=== PATIENT | female | born 1955 | race Caucasian/White ===

== ENCOUNTER 2017-03-09 18:24 | Observation (INO) | payer BC ==
--- NOTE | 2017-03-09 18:29 | PDOC ---
Attending Attestation - Resident Resident Name: PollojasenErik - ED Attending Attestation I have performed the following: I have examined & evaluated the patient, The case was reviewed & discussed with the resident, I agree w/resident's findings & plan, Exceptions are as noted - HPI HPI: 62 yo F recently post-op for arthroscopic surgery, was off her Eliquis for the past 5 days (she restarted it today on her own when she felt the palpitations). She has history of paroxysmal afib, was previously admitted requiring cardizem and subsequently amiodarone, after which it broke. She has been on metoprolol preventatively, which she took today. Denies cp. +SOB. - Physicial Exam PE: GENERAL: Awake, alert, and fully oriented, in no acute distress HEAD: No signs of trauma EYES: PERRLA, EOMI, sclera anicteric, conjunctiva clear ENT: Auricles normal inspection, hearing grossly normal, nares patent, oropharynx clear without exudates. Moist mucosa NECK: Normal ROM, supple, no lymphadenopathy, JVD, or masses LUNGS: +Mild tachypnea. Breath sounds equal, clear to auscultation bilaterally. No wheezes, and no crackles HEART: Irregularly irregular, normal S1 and S2, no murmurs, rubs or gallops ABDOMEN: Soft, nontender, normoactive bowel sounds. No guarding, no rebound. No masses EXTREMITIES: L knee with surgical dressing dry and intact. No calf tenderness, no asymmetric swelling. Remainder of extremities with normal range of motion, no edema. No clubbing or cyanosis. No cords, erythema. NEUROLOGICAL: Cranial nerves II through XII grossly intact. Normal speech. Motor and sensation intact. SKIN: Warm, Dry, normal turgor, no rashes or lesions noted. - Medical Decision Making DDx includes PE, with high clinical suspicion. Will obtain labs, then plan for DVT study, and likely a CTA.
[2017-03-09 18:37] VITALS: BMI 36.0
[2017-03-09] MEDS ORDERED: dilTIAZem HCL 50 MG/10 ML - 10 ML VIAL IVPUSH ONE (18:45)
--- NOTE | 2017-03-09 18:46 | PDOC ---
History of Present Illness - General Chief Complaint: Chest Pain Stated Complaint: chest pain Time Seen by Provider: 03/09/17 18:28 History Source: Patient Exam Limitations: No Limitations - History of Present Illness Initial Comments: 03/09/17 18:46 The patient is a 62F with a PMH of a-fib on eliquis, HTN who presents to the ED with complaints of chest ache. The patient states that this ache started this afternoon and has been constant since. It is located across her chest. It is not associated with CP, shortness of breath, cough, and vomiting. The patient states that she does feel somewhat nauseous. The patient had an arthroscopy 2 days ago. She has been off her eliquis for 6-7 days now. She has no hx of blood clots and has a distant hx of cancer but nothing within the past 6 months. Past History - Past Medical History Allergies/Adverse Reactions: Allergies Allergy/AdvReac Type Severity Reaction Status Date / Time atorvastatin AdvReac Severe Myalgias Verified 03/09/17 18:25 simvastatin AdvReac Severe Myalgias Verified 03/09/17 18:25 Home Medications: Ambulatory Orders Cholecalciferol (Vitamin D3) [Vitamin D3] 2,000 unit PO DAILY capsule 01/13/13 Multivitamin [Daily Vitamin] 1 each PO DAILY tablet 01/13/13 Calcium Carbonate [Calcium] 500 mg PO DAILY tablet 02/12/15 Apixaban [Eliquis] 5 mg PO BID tablet 01/12/17 Metoprolol Succinate [Toprol XL -] 25 mg PO DAILY 03/09/17 Apixaban [Eliquis -] 5 mg PO BID #60 tablet 03/10/17 Cardiac Disorders: Yes (afib) HTN: Yes Hypercholesterolemia: Yes Other medical history: uterine and bladder cancer - Suicide/Smoking/Psychosocial Hx Smoking History: Never smoked Hx Alcohol Use: No Drug/Substance Use Hx: No Substance Use Type: None Review of Systems - Review of Systems Able to Perform ROS?: Yes Is the patient limited Greenlandic proficient: No Constitutional: No: Chills, Fever HEENTM: No: Eye Pain, Ear Pain, Nose Pain, Throat Pain Respiratory: No: Cough, Shortness of Breath Cardiac (ROS): Yes: Irregular Heart Rate, Palpitations. No: Chest Pain, Lightheadedness ABD/GI: Yes: Nausea. No: Vomiting : No: Burning, Dysuria, Discharge Musculoskeletal: Yes: Back Pain. No: Muscle Pain Neurological: No: Headache, Numbness, Tingling, Weakness Hematologic/Lymphatic: No: Blood Clots *Physical Exam - Vital Signs Last Vital Signs Temp Pulse Resp BP Pulse Ox 98 F 141 H 18 121/77 98 03/09/17 18:29 03/09/17 18:29 03/09/17 18:29 03/09/17 18:29 03/09/17 18:29 - Physical Exam General Appearance: Yes: Nourished, Appropriately Dressed, Mild Distress, Obese. No: Apparent Distress HEENT: positive: Normal Voice, Hearing Grossly Normal Respiratory/Chest: positive: Lungs Clear, Normal Breath Sounds. negative: Chest Tender, Respiratory Distress, Accessory Muscle Use, Labored Respiration Cardiovascular: positive: Regular Rhythm, Regular Rate, S1, S2. negative: Diastolic Murmur, Systolic Murmur Gastrointestinal/Abdominal: positive: Flat, Soft. negative: Tender, Protuberent , Distended, Guarding, Rebound, Tenderness Musculoskeletal: negative: CVA Tenderness, CVA Tenderness (R), CVA Tenderness (L ) Extremity: positive: Normal Inspection, Normal Range of Motion. negative: Swelling (JORGE bandage over L knee where surgery was; both legs slightly swollen. ), Calf Tenderness Integumentary: positive: Warm, Diaphoresis. negative: Cyanotic, Erythema, Clammy, Ecchymosis, Bruising Neurologic: positive: Fully Oriented, Alert, Normal Mood/Affect, Normal Response , Motor Strength 5/5 Heart Score/ECG Review - History History: Slightly suspicious - Electrocardiogram EKG: Normal - Age Age: 45-65 - Risk Factors Risk Factors Heart Score: Yes Hx Hypercholesterolemia, Yes Hx Hypertension Based on the list above the patient has:: 1-2 risk factors - Troponin Troponin: </= normal limit - Score Heart Score - Total: 2 - ECG Intrepretation Rhythm: Irregularly Irregular - QRS Widened: RBBB - ECG Impressions Comment:: 03/09/17 18:53 No previous EKG for comparison. ED Treatment Course - LABORATORY CBC & Chemistry Diagram: 03/10/17 07:25 03/10/17 07:25 - RADIOLOGY Radiology Studies Ordered: Category Date Time Status CHEST CTA [CT] Stat CT Scan 03/09/17 18:45 Ordered Medical Decision Making - Medical Decision Making 03/09/17 18:53 The patient is a 62F with a PMH of a-fib on eliquis, HTN who presents to the ED with chest achiness. I am highly suspicious for a PE with the recent surgery but repeat bouts of A-fib is also on the differential. Labs have been ordered and CTA will be done. Patient is staying tachy around 130-140's. I have ordered 10 mg cardizem. Will reassess and monitor the patient closely. Patient was signed out to night team. *DC/Admit/Observation/Transfer Diagnosis at time of Disposition: History of atrial fibrillation Chest pain Qualifiers: Chest pain type: unspecified Qualified Code(s): R07.9 - Chest pain, unspecified - Discharge Dispostion Disposition: HOME Condition at time of disposition: Stable - Prescriptions
[2017-03-09 18:50] LABS: EOSINOPHIL 4.5 % (0-4.5); MCHC 33.6 g/dl (32.0-36.0); MEAN CELL VOLUME 86.4 fl (80-96); MEAN PLT VOLUME 9.1 fl (7.5-11.1); NEUTROPHILS 59.5 % (42.8-82.8); PLATELET COUNT 273 K/MM3 (134-434); RDW 14.6 % (11.6-15.6); WHITE BLOOD COUNT 10.3 K/mm3 (4.0-10.8)
[2017-03-09 19:00] LABS: INR 1.02 (0.82-1.09); PROTHROMBIN TIME (PATIENT) 11.4 SEC (10.2-13.0)
[2017-03-09] MEDS ORDERED: dilTIAZem HCL 50 MG/10 ML - 10 ML VIAL ONE (19:05)
[2017-03-09 19:15] LABS: TROPONIN I (DFP) < 0.03 ng/ml (0.03-0.50)
--- NOTE | 2017-03-09 19:18 | PDOC ---
*Physical Exam - Vital Signs Last Vital Signs Temp Pulse Resp BP Pulse Ox 98 F 104 H 18 95/70 98 03/09/17 18:29 03/09/17 19:16 03/09/17 18:29 03/09/17 19:16 03/09/17 18:29 ED Treatment Course - LABORATORY CBC & Chemistry Diagram: 03/09/17 18:39 03/09/17 18:39 - ADDITIONAL ORDERS Additional order review: Laboratory Results 03/09/17 03/09/17 18:39 18:39 PT with INR 11.4 INR 1.02 Troponin I < 0.03 L 03/09/17 18:39 RBC 4.32 MCV 86.4 MCHC 33.6 RDW 14.6 MPV 9.1 Neutrophils % 59.5 Lymphocytes % 25.6 D Monocytes % 9.4 Eosinophils % 4.5 Basophils % 1.0 - Medications Given in the ED: ED Medications Discontinued Medications Generic Name Dose Route Start Last Admin Trade Name Freq PRN Reason Stop Dose Admin Diltiazem HCl 10 mg 03/09/17 18:45 03/09/17 19:16 Cardizem Injection - IVPUSH 03/09/17 18:46 10 mg ONCE ONE Administration Progress Note - Progress Note Progress Note: Care of this patient received from Dr. Boyer Patient is undergoing evaluation of her chest discomfort after arthroscopy. Portable chest x-ray shows no evidence of acute process Laboratory evaluation notable only for BUN of 24 with a creatinine of 1.0 CT angiogram of chest pending to rule out pulmonary embolus. Medical Decision Making - Medical Decision Making 03/09/17 22:09 Patient had conversion to sinus rhythm approximately 2 hours after Cardizem dose. She now is much more comfortable without any further chest discomfort or palpitations. CT angiogram of the chest shows no CT evidence of acute pulmonary embolism. Case discussed with Dr. Chawla (who is familiar with the patient from surgical clearance earlier this week). Although patient is known to have a history of paroxysmal A. fib, and no longer has chest discomfort, patient should be fully "ruled out" with serial enzymes [facility] hospitalist service contacted. Case discussed with SAIGE Camarillo. Patient admitted to observation, [facility] hospitalist service. *DC/Admit/Observation/Transfer Diagnosis at time of Disposition: History of atrial fibrillation Chest pain Qualifiers: Chest pain type: unspecified Qualified Code(s): R07.9 - Chest pain, unspecified - Discharge Dispostion Condition at time of disposition: Stable Admit: Yes - Referrals
[2017-03-09 19:24] LABS: ALBUMIN 3.7 g/dl (3.5-5.0); ALK PHOS 63 U/L (32-92); ANION GAP 8 (8-16); BILIRUBIN,TOTAL 0.5 mg/dl (0.2-1.0); CALCIUM 8.9 mg/dl (8.4-10.2); CO2 27 mmol/L (22-28); CPK 42 IU/L (26-192); GLUCOSE,RANDOM 98 mg/dl (74-106); SGOT/AST 21 U/L (10-42); SGPT/ALT 22 U/L (10-40)
[2017-03-09] MEDS: APIXABAN 5 MG TABLET PO SCH (23:38)
[2017-03-10 01:50] LABS: CPK 36 IU/L (26-192); TROPONIN I < 0.02 ng/ml (0.00-0.05)
--- NOTE | 2017-03-10 05:07 | HP ---
CHIEF COMPLAINT: Chest Pressure PCP: Dr. Elliott HISTORY OF PRESENT ILLNESS: This is a 62 y/o woman with a past medical history of Paroxysmal Afib (on Eliquis), s/p L- knee arthroscopy (3 days). Who presents to the ED with chest pressure, SOB, nausea since this afternoon. Patient reports that the pressure started at rest, radiating across her chest. Patient reports restarting her Eliquis this morning secondary to recent knee surgery. Patient denies fever, chills, cough, dizziness, AP, V/D, constipation, melena, hematochezia, hematuria , dysuria. 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 Family History: Both Parents: Afib, Stroke Allergies atorvastatin Adverse Reaction (Severe, Verified 03/09/17 18:25) Myalgias simvastatin Adverse Reaction (Severe, Verified 03/09/17 18:25) Myalgias HOME MEDICATIONS: Home Medications Medication Instructions Recorded Cholecalciferol (Vitamin D3) 2,000 unit PO DAILY capsule 01/13/13 [Vitamin D3] Multivitamin [Daily Vitamin] 1 each PO DAILY tablet 01/13/13 Calcium Carbonate [Calcium] 500 mg PO DAILY tablet 02/12/15 Apixaban [Eliquis] 5 mg PO BID tablet 01/12/17 Metoprolol Succinate [Toprol Xl -] 25 mg PO DAILY 03/09/17 REVIEW OF SYSTEMS CONSTITUTIONAL: Absent: fever, chills, diaphoresis, generalized weakness, malaise, loss of appetite, weight change HEENT: Absent: rhinorrhea, nasal congestion, throat pain, throat swelling, difficulty swallowing, mouth swelling, ear pain, eye pain, visual changes CARDIOVASCULAR: chest pain Absent: syncope, palpitations, irregular heart rate, lightheadedness, peripheral edema RESPIRATORY: shortness of breath Absent: cough, dyspnea with exertion, orthopnea, wheezing, stridor, hemoptysis GASTROINTESTINAL: nausea Absent: abdominal pain, abdominal distension, vomiting, diarrhea, constipation, melena, hematochezia GENITOURINARY: Absent: dysuria, frequency, urgency, hesitancy, hematuria, flank pain, genital pain MUSCULOSKELETAL: Absent: myalgia, arthralgia, joint swelling, back pain, neck pain SKIN: Absent: rash, itching, pallor HEMATOLOGIC/IMMUNOLOGIC: Absent: easy bleeding, easy bruising, lymphadenopathy, frequent infections ENDOCRINE: Absent: unexplained weight gain, unexplained weight loss, heat intolerance, cold intolerance NEUROLOGIC: Absent: headache, focal weakness or paresthesias, dizziness, unsteady gait, seizure, mental status changes, bladder or bowel incontinence PSYCHIATRIC: Absent: anxiety, depression, suicidal or homicidal ideation, hallucinations. PHYSICAL EXAMINATION Vital Signs - 24 hr 03/09/17 23:50 Temperature 97.7 F Pulse Rate 64 Respiratory 16 Rate Blood Pressure 115/69 GENERAL: Awake, alert, and fully oriented, in no acute distress. HEAD: Normal with no signs of trauma. EYES: Pupils equal, round and reactive to light, extraocular movements intact, sclera anicteric, conjunctiva clear. No lid lag. EARS, NOSE, THROAT: Ears normal, nares patent, oropharynx clear without exudates. Moist mucous membranes. NECK: Normal range of motion, supple without lymphadenopathy, JVD, or masses. LUNGS: Breath sounds equal, clear to auscultation bilaterally. No wheezes, and no crackles. No accessory muscle use. HEART: Irregular rate and rhythm, normal S1 and S2 without murmur, rub or gallop. ABDOMEN: Soft, nontender, not distended, normoactive bowel sounds, no guarding, no rebound, no masses. No hepatomegaly or splenomegaly. MUSCULOSKELETAL: Normal range of motion at all joints. No bony deformities or tenderness. No CVA tenderness. UPPER EXTREMITIES: 2+ pulses, warm, well-perfused. No cyanosis. No clubbing. No peripheral edema. LOWER EXTREMITIES: 2+ pulses, warm, well-perfused. No calf tenderness. No peripheral edema. NEUROLOGICAL: Cranial nerves II-XII intact. Normal speech. Gait not observed. PSYCHIATRIC: Cooperative. Good eye contact. Appropriate mood and affect. SKIN: Warm, dry, normal turgor, no rashes or lesions noted, normal capillary refill. Laboratory Results - last 24 hr 03/09/17 03/09/17 03/09/17 18:39 18:39 18:39 WBC 10.3 D RBC 4.32 Hgb 12.6 Hct 37.4 MCV 86.4 MCH 29.0 MCHC 33.6 RDW 14.6 Plt Count 273 MPV 9.1 Neutrophils % 59.5 Lymphocytes % 25.6 D Monocytes % 9.4 Eosinophils % 4.5 Basophils % 1.0 PT with INR 11.4 INR 1.02 Sodium 142 Potassium 3.9 Chloride 107 Carbon Dioxide 27 Anion Gap 8 BUN 24 H Creatinine 1.0 D Creat Clearance w eGFR 55.82 Random Glucose 98 Calcium 8.9 Total Bilirubin 0.5 D AST 21 ALT 22 D Alkaline Phosphatase 63 D Creatine Kinase 42 Troponin I < 0.03 L Total Protein 6.0 L Albumin 3.7 ASSESSMENT/PLAN: This is a 62 y/o woman with a PMHx of: Paroxysmal Afib (on Eliquis), HTN, HLD. Placed on Tele Observation for Paroxysmal Afib with RVR, Chest Pressure r/o ACS , for further evaluation of the emergent condition. Plan: 1. Card: Paroxysmal Afib with RVR - Cardiac Monitoring - HEART Score- 5 - [id number] Score 3 - Cardizem given in ED~ rate now controlled - Start Eliquis now, then continue - Serial Enzymes - Appreciate Cardiology Consult - EKG reviewed - CTA- negative PE - Continue BB // Hypertension - Monitor BP - Continue home meds with parameters - Monitor renal function // Hyperlipidemia - Monitor LFTs - Low Cholesterol Diet 2. FEN - PO Fluids - Replete lytes prn - Low Na Diet 3. DVT Prophylaxis - OOB - SCDs - Continue Eliquis Code Status: Full Code Problem List - Problem (1) Chest pain Code(s): R07.9 - CHEST PAIN, UNSPECIFIED Qualifiers: Chest pain type: unspecified Qualified Code(s): R07.9 - Chest pain, unspecified; R07.9 - Chest pain, unspecified (2) Atrial fibrillation with RVR Code(s): I48.91 - UNSPECIFIED ATRIAL FIBRILLATION (3) HTN (hypertension) Code(s): I10 - ESSENTIAL (PRIMARY) HYPERTENSION (4) HLD (hyperlipidemia) Code(s): E78.5 - HYPERLIPIDEMIA, UNSPECIFIED (5) DVT prophylaxis Code(s): CXD7684 - Visit type - Emergency Visit Emergency Visit: Yes ED Registration Date: 03/09/17 Care time: The patient presented to the Emergency Department on the above date and was hospitalized for further evaluation of their emergent condition. - New Patient This patient is new to me today: Yes Date on this admission: 03/09/17 - Critical Care Critical Care patient: No
[2017-03-10 07:39] LABS: BASOPHIL 0.9 % (0-2.0); EOSINOPHIL 5.6 % (0-4.5); MCH 32.5 pg (25.7-33.7); MCHC 35.5 g/dl (32.0-36.0); MEAN CELL VOLUME 91.5 fl (80-96); MEAN PLT VOLUME 8.7 fl (7.5-11.1); NEUTROPHILS 59.9 % (42.8-82.8); PLATELET COUNT 231 K/MM3 (134-434); RDW 14.6 % (11.6-15.6); WHITE BLOOD COUNT 8.8 K/mm3 (4.0-10.8)
[2017-03-10 08:10] LABS: CPK 20 IU/L (26-192)
[2017-03-10 08:12] LABS: ANION GAP 5 (8-16); CALCIUM 8.7 mg/dl (8.4-10.2); CO2 26 mmol/L (22-28); CREATININE 0.9 mg/dl (0.6-1.3); GLUCOSE,RANDOM 93 mg/dl (74-106); MAGNESIUM 1.9 mg/dL (1.8-2.4); PHOSPHOROUS 3.8 mg/dl (2.5-4.6)
[2017-03-10 09:12] LABS: TROPONIN I (DFP) < 0.03 ng/ml (0.03-0.50)
[2017-03-10 09:39] VITALS: BP 106/55; PULSE 65; TEMP 97.7
[2017-03-10] MEDS: APIXABAN 5 MG TABLET PO SCH (09:40)
[2017-03-10] MEDS ORDERED: MULTIVITAMINS (DAILY MVI) TABLET (FP) PO SCH (10:00)
[2017-03-10] MEDS ORDERED: CALCIUM (OYSTER SHELL) 500 MG TABLET (FP) PO SCH (10:00)
[2017-03-10] MEDS ORDERED: METOPROLOL SUCCINATE 25 MG TAB.SR.24H (FP) PO SCH (10:00)
--- NOTE | 2017-03-10 10:19 | CON.CARD ---
Cardiology Consult (text) - Consultation Consultation Note: cc: palps hpi: 62 f hx pafib here with palps. Sunday had elective knee surgery, did well. Then on sunday noticed an unusual sensation in chest, felt like twisting/ palps. No cp, sob, dizzy, loc, pnd, orthopnea, le edema. Came to er and found afib with rvr 120s. While in er got iv dilt and eventually converted to sr. After going back to sr pt's palp symptom resolved. She feels well today, no complaints. Sees dr persaud for cardio. pmh: per hpi psh: knee surgery social: no tob fam: no premature cad, scd ros: per hpi; no nvd, fever, cough, nasal congestion, summers, vision changes, gib, hematuria, dysruia meds: Ambulatory Orders Cholecalciferol (Vitamin D3) [Vitamin D3] 2,000 unit PO DAILY capsule 01/13/13 Multivitamin [Daily Vitamin] 1 each PO DAILY tablet 01/13/13 Calcium Carbonate [Calcium] 500 mg PO DAILY tablet 02/12/15 Apixaban [Eliquis] 5 mg PO BID tablet 01/12/17 Metoprolol Succinate [Toprol Xl -] 25 mg PO DAILY 03/09/17 pe: Vital Signs Period Temp Pulse Resp BP Sys/Rocha Pulse Ox Last 24 Hr 97.7 F-98.2 F 49-141 14-18 95-151/44-77 97-100 nad no jvd rrr s1s2 no mrg cta bl nl eff aaox3 no le e/c/c abd nt nd pos bs no jaundice diaphoresis +dp pt no carotid bruits Laboratory Last Values WBC 8.8 K/mm3 (4.0-10.8) 03/10/17 07:25 RBC 3.47 M/mm3 (3.60-5.2) L 03/10/17 07:25 Hgb 11.3 GM/dl (10.7-15.3) D 03/10/17 07:25 Hct 31.7 % (32.4-45.2) L D 03/10/17 07:25 MCV 91.5 fl (80-96) 03/10/17 07:25 MCH 32.5 pg (25.7-33.7) D 03/10/17 07:25 MCHC 35.5 g/dl (32.0-36.0) 03/10/17 07:25 RDW 14.6 % (11.6-15.6) 03/10/17 07:25 Plt Count 231 K/MM3 (134-434) 03/10/17 07:25 MPV 8.7 fl (7.5-11.1) 03/10/17 07:25 Neutrophils % 59.9 % (42.8-82.8) 03/10/17 07:25 Lymphocytes % 24.0 % (8-40) 03/10/17 07:25 Monocytes % 9.6 % (3.8-10.2) 03/10/17 07:25 Eosinophils % 5.6 % (0-4.5) H 03/10/17 07:25 Basophils % 0.9 % (0-2.0) 03/10/17 07:25 PT with INR 11.4 SEC (10.2-13.0) 03/09/17 18:39 INR 1.02 (0.82-1.09) 03/09/17 18:39 Sodium 141 mmol/L (136-145) 03/10/17 07:25 Potassium 3.9 mmol/L (3.5-5.1) 03/10/17 07:25 Chloride 110 mmol/L (98-107) H 03/10/17 07:25 Carbon Dioxide 26 mmol/L (22-28) 03/10/17 07:25 Anion Gap 5 (8-16) L 03/10/17 07:25 BUN 25 mg/dl (7-18) H 03/10/17 07:25 Creatinine 0.9 mg/dl (0.6-1.3) 03/10/17 07:25 Creat Clearance w eGFR 55.82 (>60) 03/09/17 18:39 Random Glucose 93 mg/dl (74-106) 03/10/17 07:25 Calcium 8.7 mg/dl (8.4-10.2) 03/10/17 07:25 Phosphorus 3.8 mg/dl (2.5-4.6) 03/10/17 07:25 Magnesium 1.9 mg/dL (1.8-2.4) 03/10/17 07:25 Total Bilirubin 0.5 mg/dl (0.2-1.0) D 03/09/17 18:39 AST 21 U/L (10-42) 03/09/17 18:39 ALT 22 U/L (10-40) D 03/09/17 18:39 Alkaline Phosphatase 63 U/L (32-92) D 03/09/17 18:39 Creatine Kinase 20 IU/L (26-192) L 03/10/17 07:25 Troponin I < 0.03 ng/ml (0.03-0.50) L 03/10/17 07:25 Total Protein 6.0 g/dl (6.4-8.3) L 03/09/17 18:39 Albumin 3.7 g/dl (3.5-5.0) 03/09/17 18:39 tele: sr ecg 03/09/17: afib 120s, rbbb, no ischemic changes cta chest: no pe, no chf a/p: 62 f hx pafib here with palps. palps, pafib: -pt has known hx of pafib -current episode of rvr possibly related to stress of recent knee surgery this week -converted to SR on own and has remained in sr overnight -no signs acs, chf -recent outpt cardiac testing benign including echo -cont home toprol 25 qd and eliquis for AC cardiac freire stable for dc, has appt with dr persaud later this month
--- NOTE | 2017-03-10 10:32 | DS ---
Physical Exam: SUBJECTIVE: Patient seen and examined. Denies all c/o. Has appointment with Dr. Callahan on 03/19/17. OBJECTIVE: Vital Signs Period Temp Pulse Resp BP Sys/Rocha Pulse Ox Last 24 Hr 97.7 F-98.0 F 64-65 16-18 102-115/44-69 97 PHYSICAL EXAM GENERAL: The patient is awake, alert, and fully oriented, in no acute distress. HEAD: Normal with no signs of trauma. EYES: PERRL, extraocular movements intact, sclera anicteric, conjunctiva clear. LUNGS: Breath sounds equal, clear to auscultation bilaterally, no wheezes, no crackles, no accessory muscle use. HEART: Regular rate and rhythm, S1, S2 without murmur, rub or gallop. ABDOMEN: Soft, nontender, nondistended, normoactive bowel sounds, no guarding, no rebound, no hepatosplenomegaly, no masses. EXTREMITIES: 2+ pulses, warm, well-perfused, no edema. NEUROLOGICAL: Cranial nerves II through XII grossly intact. Normal speech, gait not observed. SKIN: Warm, dry, normal turgor, no rashes or lesions noted. LABS Laboratory Results - last 24 hr 03/10/17 03/10/17 03/10/17 00:30 07:25 07:25 WBC 8.8 RBC 3.47 L Hgb 11.3 D Hct 31.7 L D MCV 91.5 MCH 32.5 D MCHC 35.5 RDW 14.6 Plt Count 231 MPV 8.7 Neutrophils % 59.9 Lymphocytes % 24.0 Monocytes % 9.6 Eosinophils % 5.6 H Basophils % 0.9 Sodium 141 Potassium 3.9 Chloride 110 H Carbon Dioxide 26 Anion Gap 5 L BUN 25 H Creatinine 0.9 Random Glucose 93 Calcium 8.7 Phosphorus 3.8 Magnesium 1.9 Creatine Kinase 36 Troponin I < 0.02 03/10/17 07:25 WBC RBC Hgb Hct MCV MCH MCHC RDW Plt Count MPV Neutrophils % Lymphocytes % Monocytes % Eosinophils % Basophils % Sodium Potassium Chloride Carbon Dioxide Anion Gap BUN Creatinine Random Glucose Calcium Phosphorus Magnesium Creatine Kinase 20 L Troponin I < 0.03 L HOSPITAL COURSE: Date of Admission:03/09/17 Date of Discharge: 03/10/17 Minutes to complete discharge: 30 Discharge Summary Reason For Visit: chest pain Current Active Problems Atrial fibrillation with RVR (Acute) Chest pain (Acute) DVT prophylaxis (Acute) HLD (hyperlipidemia) (Acute) HTN (hypertension) (Acute) History of atrial fibrillation (Acute) Hospital Course: This is a 62 y/o woman with a past medical history of Paroxysmal Afib (on Eliquis), s/p L- knee arthroscopy (3 days). Who presents to the ED with chest pressure, SOB, nausea since this afternoon. Patient reports that the pressure started at rest, radiating across her chest. Patient reports restarting her Eliquis this morning secondary to recent knee surgery. Patient denies fever, chills, cough, dizziness, AP, V/D, constipation, melena, hematochezia, hematuria , dysuria. Paroxysmal a-fib Patient presented with PAF with RVR. Patient was given Diltiazem in ED with appropriate response. Patient maintain on telemetry monitoring overnight without any events. Cardiology consult Dr. Chawla evaluated patient this morning and determined there is no further inpatient intervention needed and the patient should be followed up as an outpatient in his office. Patient with a known history of paroxysmal A. fib with RVR probably brought on by recent knee surgery. Patient was really evaluated by Dr. Callahan as an outpatient including echo with benign cardiac workup. Patient already has an appointment with Dr. Callahan later this month and should follow up at that time for continued workup as an outpatient. Chest pain Chest pain resolved after diltiazem IV and resolution of A. fib with RVR. Cardiac enzymes negative 3 for outpatient cardiac workup including echo by Dr. Brown negative patient has follow-up appointment with him later this month and she can continue with that appointment for further workup. Hypertension Patient to continue current hypertension regimen. No change in medications per cardiology blood pressure is well maintained during this visit. Condition: Stable - Instructions Diet, Activity, Other Instructions: Eat a low-sodium well-balanced diet. Continue taking all medications as previously prescribed. Cardiac enzymes have been negative. Cholesterol testing and diabetic testing are still pending at this time. He can call medical records to get the results of this testing or call your primary doctor who can retrieve these results. Return to the ER for any chest pain, shortness of breath, palpitations, or any other concerns. Thank you for choosing us to provide your acute medical needs. Referrals: Gatito Elliott MD [Primary Care Provider] - Disposition: HOME - Home Medications Comprehensive Discharge Medication List: Ambulatory Orders Cholecalciferol (Vitamin D3) [Vitamin D3] 2,000 unit PO DAILY capsule 01/13/13 Multivitamin [Daily Vitamin] 1 each PO DAILY tablet 01/13/13 Calcium Carbonate [Calcium] 500 mg PO DAILY tablet 02/12/15 Apixaban [Eliquis] 5 mg PO BID tablet 01/12/17 Metoprolol Succinate [Toprol XL -] 25 mg PO DAILY 03/09/17 Apixaban [Eliquis -] 5 mg PO BID #60 tablet 03/10/17 Problem List - Problems (1) Atrial fibrillation with RVR Code(s): I48.91 - UNSPECIFIED ATRIAL FIBRILLATION (2) HLD (hyperlipidemia) Code(s): E78.5 - HYPERLIPIDEMIA, UNSPECIFIED (3) HTN (hypertension) Code(s): I10 - ESSENTIAL (PRIMARY) HYPERTENSION (4) Chest pain Code(s): R07.9 - CHEST PAIN, UNSPECIFIED Qualifiers: Chest pain type: unspecified Qualified Code(s): R07.9 - Chest pain, unspecified; R07.9 - Chest pain, unspecified (5) DVT prophylaxis Code(s): PRN6301 - (6) History of atrial fibrillation Code(s): Z86.79 - PERSONAL HISTORY OF OTHER DISEASES OF THE CIRCULATORY SYSTEM This patient is new to me today: Yes Date on this admission: 03/11/17 Emergency Visit: Yes ED Registration Date: 03/09/17 Care time: The patient presented to the Emergency Department on the above date and was hospitalized for further evaluation of their emergent condition. Critical Care patient: No - Discharge Referral Referred to [facility] Yes Physician Referral: Gatito Elliott MD (Int Med)
[2017-03-10 10:43] LABS: CHOLESTEROL 228 mg/dl
== END 2017-03-10 11:00 | disposition home or self-care (01) ==
LOC: FER 18:24 → FM/S 22:40
PROVIDERS: ADMIT Internal Medicine; ATTEND Nurse Practitioner Family
PROC: 3E033GC Introduction of Other Therapeutic Substance into Peripheral Vein, Percutaneous Approach (ICD-10-PCS; principal; 2017-03-09)
DX: R07.9 Chest pain, unspecified (principal); I10 Essential (primary) hypertension; I48.0 Paroxysmal atrial fibrillation; E78.5 Hyperlipidemia, unspecified; Z79.01 Long term (current) use of anticoagulants; Z88.8 Allergy status to other drugs, medicaments and biological substances; Z85.42 Personal history of malignant neoplasm of other parts of uterus; Z85.51 Personal history of malignant neoplasm of bladder
CPT/HCPCS: 36415; 71010-TC; 71275-TC; 80048; 80053; 80061; 82550; 83036; 83735; 84100; 84484; 85025; 85610; 93005; 99285-25; G0378

== ENCOUNTER 2017-05-17 20:48 | Observation (INO) | payer BC ==
--- NOTE | 2017-05-17 21:16 | PDOC ---
History of Present Illness - General History Source: Patient Exam Limitations: No Limitations <Alejandra Adams - Last Filed: 05/17/17 22:01> <Alison Nieves - Last Filed: 05/18/17 05:02> - General Chief Complaint: Irregular Heart Beat Stated Complaint: PALPITATIONS Time Seen by Provider: 05/17/17 20:53 - History of Present Illness Initial Comments: 05/17/17 21:46 62 year old female with significant past medical history of paroxysmal Afib (on eliquis) and HTN, who presents to the emergency room complaining of lightheadedness and a funny feeling in her chest that began at 7:00pm this evening. The patient explains that she was laying in bed after eating dinner when she had a sudden onset of this funny sensation and lightheadedness. She checked her heart rate which seemed fast and irregular so she came into the ED for further evaluation. She notes that a similar episode occurred in February of this year and was cardioverted in the ED. She denies chest pain and pressure. Denies SOB, cough. Denies leg swelling. Denies fever, chills, nausea, vomiting. Allergies: simvastatin, atorvastatin (Alejandra Adams) Past History <Alejandra Adams - Last Filed: 05/17/17 22:01> - Past Medical History Cardiac Disorders: Yes (afib) COPD: No HTN: Yes Hypercholesterolemia: Yes - Surgical History Orthopedic Surgery: Yes (, torn meniscus) - Suicide/Smoking/Psychosocial Hx Smoking History: Never smoked Hx Alcohol Use: No Drug/Substance Use Hx: No Substance Use Type: None <Alison Nieves - Last Filed: 05/18/17 05:02> - Past Medical History Allergies/Adverse Reactions: Allergies Allergy/AdvReac Type Severity Reaction Status Date / Time atorvastatin AdvReac Severe Myalgias Verified 03/09/17 18:25 simvastatin AdvReac Severe Myalgias Verified 03/09/17 18:25 Home Medications: Ambulatory Orders Cholecalciferol (Vitamin D3) [Vitamin D3] 2,000 unit PO DAILY capsule 01/13/13 Multivitamin [Daily Vitamin] 1 each PO DAILY tablet 01/13/13 Calcium Carbonate [Calcium] 500 mg PO DAILY tablet 02/12/15 Apixaban [Eliquis] 5 mg PO BID tablet 01/12/17 Metoprolol Succinate [Toprol XL -] 50 mg PO DAILY 03/09/17 Review of Systems - Review of Systems Able to Perform ROS?: Yes <Alejandra Adams - Last Filed: 05/17/17 22:01> <Alison Nieves - Last Filed: 05/18/17 05:02> - Review of Systems Comments:: 05/17/17 21:46 GENERAL/CONSTITUTIONAL: +lightheadedness No fever or chills. No weakness. HEAD, EYES, EARS, NOSE AND THROAT: No change in vision. No ear pain or discharge. No sore throat. CARDIOVASCULAR: + "funny feeling in her chest" No shortness of breath. RESPIRATORY: No cough, wheezing, or hemoptysis. GASTROINTESTINAL: No nausea, vomiting, diarrhea or constipation. GENITOURINARY: No dysuria, frequency, or change in urination. MUSCULOSKELETAL: No joint or muscle swelling or pain. No neck or back pain. SKIN: No rash NEUROLOGIC: No headache, vertigo, loss of consciousness, or change in strength/ sensation. ENDOCRINE: No increased thirst. No abnormal weight change. HEMATOLOGIC/LYMPHATIC: No anemia, easy bleeding, or history of blood clots. ALLERGIC/IMMUNOLOGIC: No hives or skin allergy. (Alejandra Adams) *Physical Exam <Alejandra Adams - Last Filed: 05/17/17 22:01> <Alison Nieves - Last Filed: 05/18/17 05:02> - Vital Signs Last Vital Signs Temp Pulse Resp BP Pulse Ox 98.2 F 119 H 15 110/69 98 05/17/17 20:54 05/18/17 04:22 05/18/17 04:22 05/18/17 04:22 05/18/17 04:22 - Physical Exam Comments: 05/17/17 21:51 GENERAL: Awake, alert, and fully oriented, in no acute distress HEAD: No signs of trauma EYES: PERRLA, EOMI, sclera anicteric, conjunctiva clear ENT: Auricles normal inspection, hearing grossly normal, nares patent, oropharynx clear without exudates. Moist mucosa NECK: Normal ROM, supple, no lymphadenopathy, JVD, or masses LUNGS: Breath sounds equal, clear to auscultation bilaterally. No wheezes, and no crackles HEART: +tachycardic, Regular rhythm, normal S1 and S2, no murmurs, rubs or gallops ABDOMEN: Soft, nontender, normoactive bowel sounds. No guarding, no rebound. No masses EXTREMITIES: Normal range of motion, no edema. No clubbing or cyanosis. No cords, erythema, or tenderness NEUROLOGICAL: Cranial nerves II through XII grossly intact. Normal speech, normal gait SKIN: Warm, Dry, normal turgor, no rashes or lesions noted. (Alejandra Adams) ED Treatment Course - LABORATORY CBC & Chemistry Diagram: 05/17/17 21:10 05/17/17 21:10 <Alejandra Adams - Last Filed: 05/17/17 22:01> - LABORATORY CBC & Chemistry Diagram: 05/17/17 21:10 05/17/17 21:10 <Alison Nieves - Last Filed: 05/18/17 05:02> - ADDITIONAL ORDERS Additional order review: Laboratory Results 05/17/17 05/17/17 21:10 21:10 Sodium 140 Potassium 3.9 Chloride 106 Carbon Dioxide 28 Anion Gap 6 L BUN 25 H Creatinine 0.9 Creat Clearance w eGFR > 60 Random Glucose 99 Calcium 9.8 Total Bilirubin 0.4 AST 19 ALT 13 D Alkaline Phosphatase 77 D Troponin I < 0.03 L Total Protein 6.1 L Albumin 3.8 05/17/17 21:10 RBC 4.24 D MCV 90.1 MCHC 34.0 RDW 14.0 MPV 9.1 Neutrophils % 60.8 Lymphocytes % 25.9 Monocytes % 8.7 Eosinophils % 4.1 Basophils % 0.5 - Medications Given in the ED: ED Medications Discontinued Medications Generic Name Dose Route Start Last Admin Trade Name Freq PRN Reason Stop Dose Admin Diltiazem HCl 10 mg 05/17/17 21:39 05/17/17 21:39 Cardizem Injection - IVPUSH 05/17/17 21:40 10 mg ONCE ONE Administration Diltiazem HCl 10 mg 05/17/17 23:16 05/17/17 23:16 Cardizem Injection - IVPUSH 05/17/17 23:17 10 mg ONCE ONE Administration Diltiazem HCl 60 mg 05/18/17 00:10 05/18/17 00:12 Cardizem - PO 05/18/17 00:11 60 mg ONCE ONE Administration Progress Note <GarybinuneginChristinaAlejandra - Last Filed: 05/17/17 22:01> <Alison Nieves - Last Filed: 05/18/17 05:02> - Progress Note Progress Note: Documentation has been prepared under my direction and personally reviewed by me in its entirety. I attest that this documented accurately reflects all work, treatment, procedures and medical decision making performed by me. (Alison Nieves) Medical Decision Making <Lazaro Adamsssica - Last Filed: 05/17/17 22:01> <Alison Nieves - Last Filed: 05/18/17 05:02> - Medical Decision Making As noted above, this 62-year-old woman with a history of hypertension and several month history of paroxysmal atrial fibrillation presents with mild chest discomfort consistent with her episodes of A. fib for the last few hours. No history of triggering mechanisms. She has mild lightheadedness but no shortness of breath or significant pain. Patient has been taking her Toprol/ Eliquis as prescribed. She was recently medically cleared by Dr. Callahan for upcoming (in 2 weeks) right total knee replacement. Exam as noted. Twelve-lead electrocardiogram is performed. There is significant baseline interference, limiting interpretation somewhat. Tracing consistent with atrial fibrillation 142 bpm . Right bundle-branch block is present. No significant difference when compared to initial EKG tracing of previous episode of paroxysmal atrial fibrillation dated 03/09/17 During last episode of her paroxysmal atrial fibrillation, patient responded to diltiazem 10 mg IV (somewhat delayed in that conversion to sinus rhythm occurred approximately 2 hours after administration of diltiazem ). She remained maintained normal sinus rhythm during her overnight observation . She reports no further episodes of atrial fibrillation or other arrhythmia in the interim. Diltiazem 10 mg IVP administered. Patient had a brief(10-15min) decrease in heart rate[100-105/min range] with eventual return to rapid ventricular response 120-130/min. Laboratory evaluation including CBC, chemistry profile, cardiac enzymes were essentially normal with BUN of 25/creatinine 0.9. Remainder of the chemistry profile was normal and troponin was not elevated Second dose of diltiazem 10 mg IV administered at 11:15 p.m. Patient had 20-30 minutes with decreased rate [as low as 90/min] blood rate subsequently stephani back into the 120-130/min range 05/18/17 00:11 Case discussed with . Since patient may be able to tolerate atrial fibrillation rhythm at a controlled rate without significant symptoms (she has only experienced A. fib with rapid ventricular response), goal will be to decrease rate with oral agent now ,so that rate is maintained stably. Current systolic blood pressure after second dose of IV diltiazem is 102 mmHg. Cardizem 60 mg orally to be given 05/18/17 04:28 After administration of Cardizem 60 mg orally, heart rate decreased initially , with rhythm continuing to be atrial fibrillation. Best response was rate in 90s /min with 10-20 beat runs into 120s/min. This best response occurred approximately 2-1/2-3 hours after administration. Patient was at bedrest during this time and continued to feel symptoms (mild chest discomfort/ palpitations) Currently, heart rate is approximately 110/minute. Most recent BP 110/[address] You: Patient should be admitted to telemetry, [facility] with titration of meds planned . No other intervention until then 05/18/17 04:[address] Camara of [facility]. Patient to be admitted to telemetry. No beds available at this time in [facility], telemetry unit. Plan discussed with patient who agrees. (Alison Nieves) *DC/Admit/Observation/Transfer <Alejandra Adams - Last Filed: 05/17/17 22:01> - Discharge Dispostion Admit: Yes <Alison Nieves - Last Filed: 05/18/17 05:02> Diagnosis at time of Disposition: Atrial fibrillation with RVR - Discharge Dispostion Condition at time of disposition: Stable - Attestations Scribe Attestion: 05/17/17 21:52 Documentation prepared by ETHAN Dalal, acting as medical specialist for Alison Nieves MD. (Alejandra Adams)
[2017-05-17] MEDS ORDERED: dilTIAZem HCL 50 MG/10 ML - 10 ML VIAL ONE (21:33)
[2017-05-17 21:39] LABS: BASO % 0.5 % (0-2.0); EOS % 4.1 % (0-4.5); MCH 30.6 pg (25.7-33.7); MEAN CELL VOLUME 90.1 fl (80-96); MEAN PLT VOLUME 9.1 fl (7.5-11.1); NEUT % 60.8 % (42.8-82.8); PLATELET COUNT 242 K/MM3 (134-434); WHITE BLOOD COUNT 8.9 K/mm3 (4.0-10.8)
[2017-05-17] MEDS ORDERED: dilTIAZem HCL 50 MG/10 ML - 10 ML VIAL IVPUSH ONE ×2 (21:39→23:16)
[2017-05-17 21:45] LABS: ALBUMIN 3.8 g/dl (3.5-5.0); ALK PHOS 77 U/L (32-92); ANION GAP 6 (8-16); BILIRUBIN,TOTAL 0.4 mg/dl (0.2-1.0); CALCIUM 9.8 mg/dl (8.4-10.2); CO2 28 mmol/L (22-28); CREATININE 0.9 mg/dl (0.6-1.3); EOS # 0.4 #; GLUCOSE,RANDOM 99 mg/dl (74-106); LYMPH # 2.3 # (8-40); MONO # 0.8 #; NEUT # 4.2 # (42.8-82.8); SGOT/AST 19 U/L (10-42); SGPT/ALT 13 U/L (10-40); TOT PROT 6.1 g/dl (6.4-8.3)
[2017-05-18] MEDS ORDERED: dilTIAZem HCL 60 MG TABLET (FP) PO ONE (00:10)
[2017-05-18] MEDS ORDERED: dilTIAZem HCL 30 MG TABLET (FP) ONE (00:10)
[2017-05-18] MEDS ORDERED: ONDANSETRON 4 MG/2 ML VIAL IVPUSH ONE (05:15)
[2017-05-18] MEDS ORDERED: ONDANSETRON 4 MG/2 ML VIAL ONE (05:18)
--- NOTE | 2017-05-18 08:17 | CON.CARD ---
Consult Consult Specialty:: cardio Referred by:: ER Reason for Consultation:: afib - History of Present Illness Chief Complaint: palpitations History of Present Illness: 62 yo female with palpitations. pt has known afib, first episode approx 6 mo ago, rapid HR with palpitations. admitted to outside hosp where HR difficult to control with diltiazem gtt initially, given amio gtt after several hours and converted with long conversion pause. sent home on po amio. subsequently changed to po metoprolol as outpt 50 qd. had resting sinus ayaan (asymptomatic) on ekg few mo ago so metopr dose decr'd to 25 qd. admitted here after that with rapid AF which converted on its own. metopr dose incr'd again after that time. yest felt same sx's, came to ER in rapid AF vs SVT, HR 142 bpm with RBBB. no cp, sob, presyncope or syncope. feels well currently PMH: HTN no CAD, CVAs, CHF, DM - Alcohol/Substance Use Hx Alcohol Use: No - Smoking History Smoking history: Never smoked Home Medications - Allergies Allergies/Adverse Reactions: Allergies Allergy/AdvReac Type Severity Reaction Status Date / Time atorvastatin AdvReac Severe Myalgias Verified 03/09/17 18:25 simvastatin AdvReac Severe Myalgias Verified 03/09/17 18:25 - Home Medications Home Medications: Ambulatory Orders Cholecalciferol (Vitamin D3) [Vitamin D3] 2,000 unit PO DAILY capsule 01/13/13 Multivitamin [Daily Vitamin] 1 each PO DAILY tablet 01/13/13 Calcium Carbonate [Calcium] 500 mg PO DAILY tablet 02/12/15 Apixaban [Eliquis] 5 mg PO BID tablet 01/12/17 Metoprolol Succinate [Toprol XL -] 50 mg PO DAILY 03/09/17 Family Disease History - Family Disease History Family History: Denies (no known cmp) Review of Systems - Review of Systems Constitutional: denies: Chills, Fever Eyes: denies: Eye Pain HENT: denies: Nasal Congestion Neck: denies: Stiffness Cardiovascular: reports: Palpitations. denies: Edema Respiratory: denies: Orthopnea, PND Gastrointestinal: denies: Diarrhea, Rectal Bleeding Genitourinary: denies: Burning, Hematuria Musculoskeletal: denies: Muscle Pain Integumentary: denies: Rash Neurological: denies: Numbness, Seizure, Syncope Endocrine: denies: Excessive Sweating Hematology/Lymphatic: denies: Excessive Bleeding Vital Signs: Vital Signs Temperature 98.2 F 05/17/17 20:54 Pulse Rate 127 H 05/18/17 07:22 Respiratory Rate 17 05/18/17 05:15 Blood Pressure 104/72 05/18/17 07:22 O2 Sat by Pulse Oximetry (%) 100 05/18/17 05:15 Constitutional: Yes: Well Nourished, No Distress Eyes: No: Sclera Icterus HENT: No: Nasal Congestion Neck: No: Decreased ROM Respiratory: Yes: CTA Bilaterally. No: Accessory Muscle Use, Rales, Wheezes Gastrointestinal: Yes: Normal Bowel Sounds. No: Distention, Hepatomegaly, Palpable Mass, Tenderness Cardiovascular: Yes: Pulse Irregular JVD: No Carotid Bruit: No PMI: Non-Displaced Heart Sounds: Yes: S1, S2. No: Gallop Murmur: No: Systolic Murmur, Diastolic Murmur Musculoskeletal: Yes: Other (No kyphosis) Extremities: No: Cool, Cyanosis Edema: No Peripheral Pulses: 2+ Left Carotid, 2+ Right Carotid, 2+ Left Doralis Pedis, 2+ Right Dorsalis Pedis Integumentary: No: Jaundice Neurological: Yes: Alert, Oriented (x3) Psychiatric: No: Agitated - Other Data Labs, Other Data: Troponin, BNP 05/17/17 21:10 Troponin I < 0.03 L Troponin, BNP 05/17/17 21:10 Troponin I < 0.03 L Laboratory Tests 05/17/17 05/17/17 05/17/17 21:10 21:10 21:10 WBC 8.9 Hgb 13.0 D Plt Count 242 Sodium 140 Potassium 3.9 Carbon Dioxide 28 BUN 25 H Creatinine 0.9 AST 19 ALT 13 D Troponin I < 0.03 L Assessment/Plan ekg: AF vs SVT hr 142, RBBB with assctd ST-T changes, no ischemic findings PAFib: -no structural heart dz on office echo -from memory, i believe she has not yet completed risk-stratification stress echo due to knee problem (preop for TKR) -has been on eliquis 5 bid-- -HRs transiently responding to IV and then PO diltiazem in ER, low bp to 90s systolic at times, limiting dose of AVN blockers -pt remains symptomatic even at lower HRs, per my d/w ER physician dr strong overnight -given rapidity of her HR and low bp, as well as prominence of her AF sx's, will be unlikely to find bb/ccb combo to control her HR enough for her to feel well in afib persistently -plan for DIVYA/DCCV later today if possible (if not, can consider amio bolus for chemical cardioversion, but would need to be done on tele or in icu given her past h/o long conversion pause with this approach at outside hosp previously) -will plan to load with po amio after DCCV -pt confirms twice to me that she has definitely not missed a single dose of eliquis for more than 3-4 weeks a -long-term, amio not a good option in this relatively young pt: will plan outpt stress test and then consideration of flecainide (in concert with EP consult) vs ablation, once she is controlled in sinus rhythm HTN: -low range bp's on AVN blockers -asymptomatic--observe
[2017-05-18 08:22] LABS: BASO % 0.7 % (0-2.0); EOS % 3.6 % (0-4.5); MCHC 36.1 g/dl (32.0-36.0); MEAN CELL VOLUME 91.4 fl (80-96); MEAN PLT VOLUME 8.8 fl (7.5-11.1); PLATELET COUNT 243 K/MM3 (134-434); RDW 13.9 % (11.6-15.6); WHITE BLOOD COUNT 8.3 K/mm3 (4.0-10.8)
[2017-05-18 08:32] LABS: CPK 40 IU/L (26-192)
[2017-05-18] MEDS ORDERED: APIXABAN 5 MG TABLET PO SCH (09:00)
[2017-05-18] MEDS ORDERED: dilTIAZem HCL 30 MG TABLET (FP) PO SCH (09:00)
[2017-05-18 09:03] LABS: TROPONIN I (DFP) < 0.03 ng/ml (0.03-0.50)
--- NOTE | 2017-05-18 09:06 | HP ---
CHIEF COMPLAINT: palpitations PCP:outon HISTORY OF PRESENT ILLNESS: 62yo F with PMH afib, HTN, bladder ca s/p surgery and chemo and dyslidemia presented to the ER after feeling chest discomfort yesterday which prompted her to the ER. assoc with nausea. This is her 3rd episode of afib. she was initially diagnosed with Afib in December 2016 which converted after initiation of amiodarone. 2nd episode was day after arthroscopy of L knee which converted with several doses of cardizem. she was transitioned from amio po to metoprolol po in the office. pt has been compliant with medications. denies CP, SOB, fever , chills, cough, N/V/C/D, dysuria or urinary frequency ER course was notable for: (1) Afib with RVR (2) (3) Recent Travel:denies PAST MEDICAL HISTORY:as above PAST SURGICAL HISTORY: L knee arthroscopy, Bladder mass removal, [facility] Social History: Smoking:denies Alcohol:1 drink/month Drugs: denies Family History:both parents afib and CVA Allergies atorvastatin Adverse Reaction (Severe, Verified 03/09/17 18:25) Myalgias simvastatin Adverse Reaction (Severe, Verified 03/09/17 18:25) Myalgias HOME MEDICATIONS: Home Medications Medication Instructions Recorded Cholecalciferol (Vitamin D3) 2,000 unit PO DAILY capsule 01/13/13 [Vitamin D3] Multivitamin [Daily Vitamin] 1 each PO DAILY tablet 01/13/13 Calcium Carbonate [Calcium] 500 mg PO DAILY tablet 02/12/15 Apixaban [Eliquis] 5 mg PO BID tablet 01/12/17 Metoprolol Succinate [Toprol XL -] 50 mg PO DAILY 03/09/17 REVIEW OF SYSTEMS CONSTITUTIONAL: Absent: fever, chills, diaphoresis, generalized weakness, malaise, loss of appetite, weight change HEENT: Absent: rhinorrhea, nasal congestion, throat pain, throat swelling, difficulty swallowing, mouth swelling, ear pain, eye pain, visual changes CARDIOVASCULAR: chest discomfort Absent, syncope, palpitations, irregular heart rate, lightheadedness, peripheral edema RESPIRATORY: Absent: cough, shortness of breath, dyspnea with exertion, orthopnea, wheezing, stridor, hemoptysis GASTROINTESTINAL:nausea Absent: abdominal pain, abdominal distension, vomiting, diarrhea, constipation, melena, hematochezia GENITOURINARY: Absent: dysuria, frequency, urgency, hesitancy, hematuria, flank pain, genital pain MUSCULOSKELETAL: Absent: myalgia, arthralgia, joint swelling, back pain, neck pain SKIN: Absent: rash, itching, pallor HEMATOLOGIC/IMMUNOLOGIC: Absent: easy bleeding, easy bruising, lymphadenopathy, frequent infections ENDOCRINE: Absent: unexplained weight gain, unexplained weight loss, heat intolerance, cold intolerance NEUROLOGIC: Absent: headache, focal weakness or paresthesias, dizziness, unsteady gait, seizure, mental status changes, bladder or bowel incontinence PSYCHIATRIC: Absent: anxiety, depression, suicidal or homicidal ideation, hallucinations. PHYSICAL EXAMINATION Vital Signs - 24 hr 05/17/17 05/17/17 05/17/17 20:54 22:15 23:15 Temperature 98.2 F Pulse Rate 138 H Pulse Rate [ 117 H 132 H Apical] Respiratory 18 13 17 Rate Blood Pressure 117/83 Blood Pressure 108/78 106/80 [Arm] O2 Sat by Pulse 99 97 98 Oximetry (%) 05/18/17 05/18/17 05/18/17 00:09 01:17 02:20 Temperature Pulse Rate Pulse Rate [ 63 137 H 124 H Apical] Respiratory 17 14 14 Rate Blood Pressure Blood Pressure 102/74 119/73 97/70 [Arm] O2 Sat by Pulse 97 98 90 L Oximetry (%) 05/18/17 05/18/17 05/18/17 03:15 04:22 05:15 Temperature Pulse Rate Pulse Rate [ 97 H 119 H 108 H Apical] Respiratory 14 15 17 Rate Blood Pressure Blood Pressure 104/62 110/69 95/77 [Arm] O2 Sat by Pulse 99 98 100 Oximetry (%) 05/18/17 05/18/17 06:15 07:22 Temperature Pulse Rate Pulse Rate [ 116 H 127 H Apical] Respiratory Rate Blood Pressure Blood Pressure 96/85 104/72 [Arm] O2 Sat by Pulse Oximetry (%) GENERAL: Awake, alert, and fully oriented, in no acute distress. HEAD: Normal with no signs of trauma. EYES: Pupils equal, round and reactive to light, extraocular movements intact, sclera anicteric, conjunctiva clear. No lid lag. EARS, NOSE, THROAT: Ears normal, nares patent, oropharynx clear without exudates. Moist mucous membranes. NECK: Normal range of motion, supple without lymphadenopathy, JVD, or masses. LUNGS: Breath sounds equal, clear to auscultation bilaterally. No wheezes, and no crackles. No accessory muscle use. HEART: +tachycardic irregular ABDOMEN: Soft, nontender, not distended, normoactive bowel sounds, no guarding, no rebound, no masses. No hepatomegaly or splenomegaly. MUSCULOSKELETAL: Normal range of motion at all joints. No bony deformities or tenderness. No CVA tenderness. UPPER EXTREMITIES: 2+ pulses, warm, well-perfused. No cyanosis. No clubbing. No peripheral edema. LOWER EXTREMITIES: 2+ pulses, warm, well-perfused. No calf tenderness. No peripheral edema. NEUROLOGICAL: Cranial nerves II-XII intact. Normal speech. Normal gait. PSYCHIATRIC: Cooperative. Good eye contact. Appropriate mood and affect. SKIN: Warm, dry, normal turgor, no rashes or lesions noted, normal capillary refill. Laboratory Results - last 24 hr 05/17/17 05/17/17 05/17/17 21:10 21:10 21:10 WBC 8.9 RBC 4.24 D Hgb 13.0 D Hct 38.2 D MCV 90.1 MCH 30.6 MCHC 34.0 RDW 14.0 Plt Count 242 MPV 9.1 Absolute Neuts (auto) 4.2 L Absolute Lymphs (auto) 2.3 L Absolute Monos (auto) 0.8 Absolute Eos (auto) 0.4 Absolute Basos (auto) 0.0 L Neutrophils % 60.8 Lymphocytes % 25.9 Monocytes % 8.7 Eosinophils % 4.1 Basophils % 0.5 Sodium 140 Potassium 3.9 Chloride 106 Carbon Dioxide 28 Anion Gap 6 L BUN 25 H Creatinine 0.9 Creat Clearance w eGFR > 60 Random Glucose 99 Calcium 9.8 Total Bilirubin 0.4 AST 19 ALT 13 D Alkaline Phosphatase 77 D Creatine Kinase Troponin I < 0.03 L Total Protein 6.1 L Albumin 3.8 05/18/17 05/18/17 05/18/17 07:40 07:40 07:40 WBC 8.3 RBC 3.88 Hgb 12.8 Hct 35.5 MCV 91.4 MCH 33.0 MCHC 36.1 H RDW 13.9 Plt Count 243 MPV 8.8 Absolute Neuts (auto) Absolute Lymphs (auto) Absolute Monos (auto) Absolute Eos (auto) Absolute Basos (auto) Neutrophils % 64.0 Lymphocytes % 23.8 Monocytes % 7.9 Eosinophils % 3.6 Basophils % 0.7 Sodium Potassium Chloride Carbon Dioxide Anion Gap BUN Creatinine Creat Clearance w eGFR Random Glucose Calcium Total Bilirubin AST ALT Alkaline Phosphatase Creatine Kinase Cancelled 40 Troponin I Cancelled Total Protein Albumin ASSESSMENT/PLAN: 62yo F with PMH afib, HTN, bladder ca s/p surgery and chemo and dyslidemia presented to the ER after feeling chest discomfort yesterday and found to be in afib with RVR 1. Afib with RVR- tele observation. s/p cardizem 10 mg IVP x2 and cardizem 60mg po without good response. remains HR 130-140's. Cardio consulted and plan for cardioversion. NPO for cardioversion scheduled for today. pt is low risk for low risk procedure. has been compliant on eliquis for several months. METS >4. no complications with anesthesia in the past. echo done recently in cardio office and results provided by them. no indication for repeat. trend cardiac enzymes Q6H, check TSH. cont cardizem and eliquis. 2. HTN- currently hypotensive likely due to tachycardia. hold oral antihypertensives at this time. slowly re-start as needed 3. dyslipidemia- diet controlled. not on statins due to severe myalgias. 4. bladder ca s/p tumor removal and chemo therapy. 5. DVT ppx- eliquis 6. pt is being transferred to [facility] for cardioversion today. report has been given to accepting physician at [facility]. pt is aware she is being transferred. plan discussed. all questions answered. verbalized understanding and agreement with plan Visit type - Emergency Visit Emergency Visit: Yes ED Registration Date: 05/18/17 Care time: The patient presented to the Emergency Department on the above date and was hospitalized for further evaluation of their emergent condition. - New Patient This patient is new to me today: Yes Date on this admission: 05/18/17 - Critical Care Critical Care patient: No
[2017-05-18] MEDS ORDERED: ACETAMINOPHEN 325 MG TABLET (FP) PO PRN (10:04)
[2017-05-18] MEDS ORDERED: ONDANSETRON 4 MG/2 ML VIAL IVPUSH PRN (10:04)
[2017-05-18] MEDS ORDERED: SODIUM CHLORIDE 1,000 ML IV SCH (10:45)
[2017-05-18 11:05] LABS: EOS # 0.4 #; LYMPH # 2.3 # (8-40); MONO # 0.8 #; NEUT # 5.4 # (42.8-82.8)
[2017-05-18 11:13] LABS: ANION GAP 10 (8-16); CALCIUM 9.6 mg/dl (8.4-10.2); CO2 23 mmol/L (22-28); GLUCOSE,RANDOM 105 mg/dl (74-106)
[2017-05-18 13:22] VITALS: BP 122/68; PULSE 66; TEMP 98.1
[2017-05-18 14:00] VITALS: BMI 35.4
--- NOTE | 2017-05-18 14:08 | PN ---
Progress Note (short form) - Note Progress Note: Patient spontaneously converted to sinus rhythm. EKG shows Sinus ayaan, 58 bpm with pvc's. Would stop diltiazem and d/c home on amiodarone taper. 400 mg bid x 1 week. 200 mg bid x 1 week and then 200 mg daily thereafter. Stable for d/c with outpatient follow up with Dr. Callahan.
--- NOTE | 2017-05-18 14:49 | DS ---
Physical Examination Vital Signs: Vital Signs Temperature 98.1 F 05/18/17 13:31 Pulse Rate 66 05/18/17 13:31 Respiratory Rate 18 05/18/17 13:31 Blood Pressure 122/68 05/18/17 13:31 O2 Sat by Pulse Oximetry (%) 98 05/18/17 13:31 Labs: CBC, BMP 05/18/17 07:40 05/18/17 07:40 Discharge Summary Reason For Visit: ATRIAL FIB W RAPID VENTRICULAR RESPONSE Current Active Problems Atrial fibrillation with RVR (Acute) Hospital Course: Discussed with Dr. Palmer, patient cleared for discharge from cardiology perspective. Recommendations for amiodarone taper appreciated Condition: Improved - Instructions Diet, Activity, Other Instructions: Please return to the ED with new, persistent, or worsening symptoms. Please follow-up with providers as indicated. STOP taking diltiazem START taking Amiodarone as follows: 400mg by mouth twice a day for 1 week, then 200mg by mouth twice a day for 1 week, then 200mg by mouth daily maintenance Referrals: Shaka Callahan MD [Staff Physician] - (Please follow-up with Dr. Callahan within 1 week) Jonathan Fisher MD [Staff Physician] - 1 Week Disposition: HOME - Home Medications Comprehensive Discharge Medication List: Ambulatory Orders Cholecalciferol (Vitamin D3) [Vitamin D3] 2,000 unit PO DAILY capsule 01/13/13 Multivitamin [Daily Vitamin] 1 each PO DAILY tablet 01/13/13 Calcium Carbonate [Calcium] 500 mg PO DAILY tablet 02/12/15 Apixaban [Eliquis] 5 mg PO BID tablet 01/12/17 Amiodarone HCl [Cordarone -] 400 mg PO BID #120 tablet 05/18/17
[2017-05-18] MEDS ORDERED: AMIODARONE HCL 200 MG TABLET (FP) PO SCH (22:00)
[2017-05-19] MEDS ORDERED: CALCIUM (OYSTER SHELL) 500 MG TABLET (FP) PO SCH (10:00)
[2017-05-19] MEDS ORDERED: CHOLECALCIFEROL (VITAMIN D3) 1,000 UNIT TABLET (FP) PO SCH (10:00)
[2017-05-19] MEDS ORDERED: MULTIVITAMINS (DAILY MVI) TABLET (FP) PO SCH (10:00)
--- NOTE | 2017-05-19 16:26 | EKG ---
Test Reason : Blood Pressure : / mmHG Vent. Rate : 058 BPM Atrial Rate : 058 BPM P-R Int : 170 ms QRS Dur : 142 ms QT Int : 450 ms P-R-T Axes : 030 -08 -42 degrees QTc Int : 441 ms SINUS BRADYCARDIA WITH OCCASIONAL PREMATURE VENTRICULAR COMPLEXES RIGHT BUNDLE BRANCH BLOCK INFERIOR INFARCT , AGE UNDETERMINED T WAVE ABNORMALITY, CONSIDER LATERAL ISCHEMIA ABNORMAL ECG WHEN COMPARED WITH ECG OF 17-MAY-2017 21:09, PREMATURE SUPRAVENTRICULAR COMPLEXES ARE NO LONGER PRESENT VENT. RATE HAS DECREASED BY 84 BPM NONSPECIFIC T WAVE ABNORMALITY HAS REPLACED INVERTED T WAVES IN INFERIOR LEADS Confirmed by ZANE MIGUEL MD ([id number]) on 05/19/2017 4:26:27 PM Referred By: Confirmed By:ZANE MIGUEL MD
--- NOTE | 2017-05-23 11:18 | EKG ---
Test Reason : Blood Pressure : / mmHG Vent. Rate : 142 BPM Atrial Rate : 134 BPM P-R Int : 160 ms QRS Dur : 136 ms QT Int : 314 ms P-R-T Axes : 000 006 -20 degrees QTc Int : 483 ms POOR DATA QUALITY, INTERPRETATION MAY BE ADVERSELY AFFECTED ATRIAL FIBRILLATION WITH RAPID VENTRICULAR RESPONSE RIGHT BUNDLE BRANCH BLOCK ABNORMAL ECG WHEN COMPARED WITH ECG OF 09-MAR-2017 18:35, Confirmed by BHARATHI DUNNE, FABIOLA ([id number]) on 05/23/2017 11:17:39 AM Referred By: ENDER Confirmed By:FABIOLA GARVIN MD
--- NOTE | 2017-05-23 11:19 | EKG ---
Test Reason : Blood Pressure : / mmHG Vent. Rate : 065 BPM Atrial Rate : 065 BPM P-R Int : 162 ms QRS Dur : 136 ms QT Int : 438 ms P-R-T Axes : 041 -09 006 degrees QTc Int : 455 ms SINUS RHYTHM WITH OCCASIONAL and consecutive PREMATURE VENTRICULAR COMPLEXES AND FUSION COMPLEXES RIGHT BUNDLE BRANCH BLOCK ABNORMAL ECG WHEN COMPARED WITH ECG OF 17-MAY-2017 21:09, FUSION COMPLEXES ARE NOW PRESENT Sinus rhythm has replace atrial fibrillation VENT. RATE HAS DECREASED BY [address]-T abnormalities are no longer present in lateral leads Confirmed by FABIOLA GARVIN MD ([id number]) on 05/23/2017 11:18:34 AM Referred By: YOANA BERRY Confirmed By:FABIOLA GARVIN MD
== END 2017-05-18 15:17 | disposition home or self-care (01) | DRG 310 ==
LOC: FER 20:48 → J4W 05-18 10:04 → UNDOADMOB 05-18 13:14 → INTOOBSV 05-18 13:14 → UNDODISOB 05-18 15:17
PROVIDERS: ADMIT Internal Medicine; ATTEND Registered Nurse
DX: I48.0 Paroxysmal atrial fibrillation (principal); I10 Essential (primary) hypertension; I45.19 Other right bundle-branch block; E78.5 Hyperlipidemia, unspecified; C67.9 Malignant neoplasm of bladder, unspecified
CPT/HCPCS: 36415; 80048; 80053; 82550; 84443; 84484; 85025; 93005; 93010; 99285-25; G0378

== ENCOUNTER 2020-03-02 16:37 | Emergency (ER) | payer OTHER, BC ==
--- NOTE | 2020-03-02 16:46 | PDOC ---
History of Present Illness - General Chief Complaint: Injury Stated Complaint: FELL IN GARDEN HIT FOREHEAD ON ROCK AND NECK PA Time Seen by Provider: 03/02/20 16:44 - History of Present Illness Initial Comments: HPI: 03/02/20 16:44 65 yo F PMH HTN, HLD, hypothyroidism, paroxysmal Afib s/p ablation on Eliquis, mitral valve replacement s/p pacemaker, bladder CA s/p chemo (2008), uterine CA s/p hysterectomy (2005), presenting after a fall. Ms. Jamil states that she was gardening and tripped on a rock, hitting her head on another rock. She thinks that she passed out for a few seconds. Denies weakness, numbness, tingling, co nfusion, N/V. Took acetaminophen 650 mg at around 1530. Allergies: amiodarone (reportedly loss of vision in R eye, now back to normal) ROS: GENERAL/CONSTITUTIONAL: denies fever, chills, diaphoresis, generalized weakness, malaise, HEAD, EYES, EARS, NOSE AND THROAT: denies rhinorrhea, nasal congestion, throat pain, throat swelling NEUROLOGIC: denies headache, focal weakness, dizziness, unsteady gait, seizure, mental status changes, bladder or bowel incontinence CARDIOVASCULAR: denies chest pain, syncope, palpitations, irregular heart rate, lightheadedness, peripheral edema RESPIRATORY: denies cough, shortness of breath, dyspnea with exertion, wheezing GASTROINTESTINAL: denies abdominal pain, abdominal distension, nausea, vomiting, diarrhea, constipation, melena, hematochezia GENITOURINARY: denies dysuria, frequency, urgency MUSCULOSKELETAL: endorses neck pain. Denies myalgia, arthralgia, joint swelling, back pain SKIN: denies rash, itching ENDOCRINE: denies unexplained weight gain, unexplained weight loss, heat intolerance, cold intolerance PSYCHIATRIC: denies anxiety, depression, suicidal or homicidal ideation, hallucinations PE: Gen: well-developed, well-nourished, NAD Neuro: AAOX4, CN II-XII intact, FTN intact, EOMI, PERRLA, 5/5 strength, SILT HEENT: R frontal scalp hematoma, small chip in tooth #9, abrasion of inner lower lip, abrasion of bridge of nose. Neck: trachea midline, supple. No spinal tenderness, mild paraspinal tenderness CV: regular rate, regular rhythm, no murmurs, rubs, or gallops Pulm: CTA b/l, no wheezing Abd: soft, non-distended, non-tender MSK: full ROM, intact pulses Extr: no edema, no deformities Skin: warm, dry MDM: Concerning fall, head trauma, LOC, on Eliquis, will get CT head and C-spine at [facility]. Will apply Lidoderm patch to neck. 03/02/20 18:[address] scan[address] Signed out to Dr. Ortega for further management. Past History - Medical History Allergies/Adverse Reactions: Allergies Allergy/AdvReac Type Severity Reaction Status Date / Time amiodarone Allergy Severe Verified 03/02/20 17:29 atorvastatin AdvReac Severe Myalgias Verified 03/02/20 16:40 simvastatin AdvReac Severe Myalgias Verified 03/02/20 16:40 Home Medications: Ambulatory Orders Multivitamin [Daily Vitamin] 1 each PO DAILY tablet 01/13/13 Apixaban [Eliquis] 5 mg PO BID tablet 01/12/17 Levothyroxine [Synthroid -] 50 mcg PO ASDIR 03/02/20 Levothyroxine [Synthroid -] 75 mcg PO ASDIR 03/02/20 Metoprolol Succinate 25 mg PO BID 03/02/20 Anemia: No Asthma: No Cancer: Yes (Uterine Ca 2005 & Bladder Ca 2010) Cardiac Disorders: Yes (afib) CVA: No COPD: No CHF: No Dementia: No Diabetes: No GI Disorders: Yes (Diverticulitis) Disorders: No HTN: Yes Hypercholesterolemia: Yes Liver Disease: No Seizures: No Thyroid Disease: No - Surgical History Abdominal Surgery: No Appendectomy: No Cardiac Surgery: No Cholecystectomy: No Lung Surgery: No Neurologic Surgery: No Orthopedic Surgery: Yes (Arthroscopic surgery L Knee 03/13) - Psycho-Social/Smoking History Smoking History: Never smoked Have you smoked in the past 12 months: No Discharge - Discharge Information Problems reviewed: Yes Clinical Impression/Diagnosis: Contusion of face Qualifiers: Encounter type: initial encounter Qualified Code(s): S00.83XA - Contusion of other part of head, initial encounter Cervical muscle strain Qualifiers: Encounter type: initial encounter Qualified Code(s): S16.1XXA - Strain of muscle, fascia and tendon at neck level, initial encounter Condition: Stable - Follow up/Referral - Patient Discharge Instructions - Post Discharge Activity
--- NOTE | 2020-03-02 16:51 | PDOC ---
Attending Attestation - Resident Resident Name: Esteban Mast - ED Attending Attestation I have performed the following: I have examined & evaluated the patient, The case was reviewed & discussed with the resident, I agree w/resident's findings & plan - HPI HPI: 03/02/20 16:50 65 yo F PMH HTN, HLD, paroxysmal Afib s/p ablation on Eliquis, bladder CA s/p chemo (2008), uterine CA s/p hysterectomy (2005), presenting after mechanical trip and fall over a rock and landed on her face. +chipped front teeth, hematoma to her forehead. brief LOC? for a few seconds, resolved immediately took tylenol 650mg at approx 330pm, with some improvement. 03/02/20 17:09 - Physicial Exam PE: 03/02/20 17:06 Physical exam: General: GCS 15 - NAD, well appearing HEENT: NCAT, PERRL, EOMI. Airway intact. No battles sign or raccoon eyes. No e/o ocular. Dentition intact. No e/o septal hematoma, nasal bridge stable. +hematoma and mild ecchymosis to forehead. +small horizontal 1cm linear abrasion to nasal bridge. +lower inner lip ecchymosis and swelling. tooth #9, #10 with estrada I fx/at the edge and involving enamel only Neck: neck supple, no midline C spine tenderness or deformity, ROM intact. No anterior mass or crepitus, trachea midline. +paraspinal cervical tenderness, left > right Resp: Lungs clear bilaterally Chest: no clavicle or chest wall tenderness or crepitus CVS: irregularly irregular, 2+ pulses throughout. Abdomen: Abdomen soft, nontender, nondistended. Back: Back nontender, no midline spinal tenderness along cervical/thoracic/lumbar spine, FROM, no stepoffs. MSK: Pelvis stable, Extremities symmetric, no focal areas of tenderness or deformities, proximal and distally; no pain on axial loading. FROM in all extrem. +right anterior vertical knee scar Neuro: Alert, oriented appropriately. CN II-XII grossly symmetric and intact. no focal neuro deficits. Sensation and strength intact throughout. Gait normal/stable. Skin: intact, normal color and well perfused. +small horizontal 1cm linear abrasion to nasal bridge. +hematoma and mild ecchymosis to forehead - Medical Decision Making 03/02/20 17:09 Vital Signs Temp Pulse Resp BP Pulse Ox 97.9 F 77 16 170/87 98 03/02/20 16:39 03/02/20 16:39 03/02/20 16:39 03/02/20 16:39 03/02/20 16:39 ddx. ICH, SDH, EDH, skull fx, C spine injury, fx, subluxation, msk contusion, facial contusion. vs reviewed wnl. will get CT head and C spine to eval for bleed/fx and associated injuries lido patch to the neck/back CTs pending at [facility] as machine at [facility] is under maintenance, s/o to Dr Adame pending imaging results and ultimate dispo. 03/02/20 18:21 Discharge - Discharge Information Problems reviewed: Yes Clinical Impression/Diagnosis: Contusion of face Qualifiers: Encounter type: initial encounter Qualified Code(s): S00.83XA - Contusion of other part of head, initial encounter Cervical muscle strain Qualifiers: Encounter type: initial encounter Qualified Code(s): S16.1XXA - Strain of muscle, fascia and tendon at neck level, initial encounter Condition: Stable - Follow up/Referral - Patient Discharge Instructions - Post Discharge Activity
--- OUTSIDE RECORDS SUMMARY | 2020-03-02 16:55 | XMS ---
:1955 Author Organization [facility] Care Team Providers Name Role Phone HerndonBre Unavailable Unavailable Edgar Orellana Unavailable Unavailable Bri Unavailable Unavailable Care Unavailable Unavailable Martha Salgado Unavailable Unavailable LYNDSAY Jackson Unavailable Unavailable Re-disclosure Warning The records that you are about to access may contain information from federally- assisted alcohol or drug abuse programs. If such information is present, then the following federally mandated warning applies: This information has been disclosed to you from records protected by federal confidentiality rules (42 CFR part 2). The federal rules prohibit you from making any further disclosure of this information unless further disclosure is expressly permitted by the written consent of the person to whom it pertains or as otherwise permitted by 42 CFR part 2. A general authorization for the release of medical or other information is NOT sufficient for this purpose. The Federal rules restrict any use of the information to criminally investigate or prosecute any alcohol or drug abuse patient.The records that you are about to access may contain highly sensitive health information, the redisclosure of which is protected by Article 27-F of the [facility] Public Health law. If you continue you may haveaccess to information: Regarding HIV / AIDS; Provided by facilities licensed or operated by the [facility] Office of Mental Health; or Provided by the [facility] Office for People With Developmental Disabilities. If such information is present, then the following [facility] mandated warning applies: This information has been disclosed to you from confidential records which are protected by state law. State law prohibits you from making any further disclosure of this information without the specific written consent of the person to whom it pertains, or as otherwise permitted by law. Any unauthorized further disclosure in violation of state law may result in a fine or group home sentence or both. A general authorization for the release of medical or other information is NOT sufficient authorization for further disclosure. 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 Observation Data Description Source(s ) Advance Yes completed [facility] directive [facility] Advance Y - cesar completed [facility] directive jamil daughter Hosp ital [phone] Allergies and Adverse Reactions Type Description Substance Reaction Status Data Source(s ) 1 AMIODARONE AMIODARONE [facility] ([facility] Drug allergy amiodarone amiodarone NOT LISTED SV [facility] UNKNOWN [facility] Drug allergy No Known Drug No Known Drug NO KNOWN V[facility] Allergies Allergies ALLERG Hospital Drug allergy Myphnfe-Xqa-Kti Kyjayyp-Ohw-Oqn Muscle Aches Vancleve Reductase Reductase [facility] Inhibitor Inhibitor Encounters Encounter Providers Location Date Indications Data Source(s ) Outpatient Attender: Bre 01/09/2020 REYNALDO Herndon 01:47:00 AM ([facility]) Outpatient Attender: Bre 01/08/2020 REYNALDO Herndon 12:22:00 PM ([facility]) Outpatient Attender: Bre 01/05/2020 REYNALDO Herndon 07:56:00 AM ([facility]) Outpatient Attender: Bre 10/13/2019 REYNALDO Herndon 10:34:00 AM ([facility]) Outpatient Attender: Bre 09/26/2019 REYNALDO HerndonReferrer: 12:15:00 PM [facility] Attender: Bre 07/30/2019 REYNALDO HerndonReferrer: 04:42:00 PM ([facility] EST Medical [facility]) Outpatient Attender: Bre 07/14/2019 REYNALDO Herndon 06:49:00 PM ([facility] EST Medical [facility]) Outpatient Attender: Bre 06/18/2019 REYNALDO CohenReferrer: 03:00:00 PM ([facility] Brestanley [facility]don [facility] Medical - [facility]) Emergency Attender: Myles 06/11/2019 SOB/A-FIB - SENT B Y Rowena Santacruzto 12:45:00 PM [facility] EST - 06/11/2019 05:17:00 PM EST SOB/A-FIB - SENT BY MD Mandy CALDERÓN Patient discharged. Outpatient Attender: Bre 06/11/2019 12:00:00 AM NEXTGEN ([facility] EST Medical - [facility]) Outpatient Attender: Magda 04/02/2019 09:00:00 AM NEXTGEN ([facility] LemercierReferrer: EST Medica l - [facility]) Outpatient Attender: Edgar 03/02/2019 02:18:00 PM NEXTGEN ([facility] EDT Medical - [facility]) Outpatient Attender: Edgar 02/28/2019 07:41:00 PM NEXTGEN ([facility] SonaraReferrer: EDT Medical - [facility]) Outpatient Attender: Bre 02/06/2019 02:04:00 PM NEXTGEN ([facility] EDT Medical [facility]) Outpatient Attender: Bre 01/20/2019 10:45:00 AM NEXTGEN ([facility] YanickReferrer: Bre EDT Med ica - [facility]) Outpatient Attender: Bre 12/26/2018 12:00:00 AM NEXTGEN ([facility] YanickReferrer: Bre EDT Med [facility]) Outpatient Attender: David Garcia-LAB 12/19/2018 09:18:00 AM [facility] - Adelia Gregory EDT - 12/19/2018 Hospital 11:59:00 PM EDT Patient discharged. Outpatient Attender: Bre Herndon 12/13/2018 11:41:00 AM NEXTGEN ([facility] EDT Medical - [facility]) Outpatient Attender: Bre Herndon 09/05/2018 04:55:00 PM NEXTGEN ([facility] EDT Medical - [facility]) Outpatient Attender: Bre 08/30/2018 12:00:00 AM NEXTGEN ([facility] CohenReferrer: Bre EDT Med ical - [facility]) Outpatient Attender: Bre Herndon 08/29/2018 09:47:00 AM NEXTGEN ([facility] EDT Medical - [facility]) Outpatient Attender: Bre Herndon 08/28/2018 03:14:00 PM NEXTGEN ([facility] EDT Medical - [facility]) Outpatient Attender: Bre 07/11/2018 09:00:00 AM NEXTGEN ([facility] CohenReferrer: Bre EST Med ical - [facility]) Outpatient Attender: Bre 07/04/2018 10:00:00 AM NEXTGEN ([facility] CohenReferrer: Bre EST Med ical - [facility]) Medications Medication Brand Start Product Dose Route Administrative Pharmacy [facility] Indications Reaction Description Data Name Date Form Instructions Instructions Source(s) Calcium CALCIU RP NEXTGEN Carbonate M ([facility] 1500 MG Medical - Oral Tablet [place] 600 mg Medical calcium [facility]) (1,500 mg) 600 mg calcium (1,500 mg) This may be an active medication. No end date is available. Start date above may not reflect actual date the medication was s tarted. Cholecalciferol 2000 UNT Oral VITAMIN D3 RP NEXTGEN ([facility] Capsule 50 mcg (2,000 unit) Medical - [place] 50 mcg (2,000 unit) [facility]) This may be an active medication. No end date is available. Start date above may not reflect actual date the medication was s tarted. apixaban 5 MG Oral ELIQUIS take 1 tablet by RP NEXTGEN ([facility] Tablet [Eliquis] 5 oral route every Medical - [place] mg 5 mg day [facility]) This may be an active medication. No end date is available. Start date above may not reflect actual date the medication was s tarted. "" "" take 1 tablet by oral route RP NEXTGEN ([facility] Medical - [facility] every day with food [facility]) This may be an active medication. No end date is available. Start date above may not reflect actual date the medication was s tarted. Metoprolol METOPROLOL 01/08/2020 TAKE 1 RP NEXTGEN Tartrate 25 MG TARTRATE 12:00:00 AM TABLET BY ([facility] Oral Tablet 25 EDT MOUTH Medi heri - Mt mg 25 mg TWICE [facility] [place] Me dical DAY [facility]) This may be an active medication. No end date is available. Metoprolol METOPROLOL 01/05/2020 TAKE 1 RP NEXTGEN Tartrate 25 MG TARTRATE 12:00:00 AM TABLET BY ([facility] Oral Tablet 25 EDT MOUTH Medi heri - [facility] mg 25 mg TWICE A [place] Me dical DAY [facility]) This may be an active medication. No end date is available. Metoprolol METOPROLOL 10/13/2019 TAKE 1 RP NEXTGEN Tartrate 25 MG TARTRATE 12:00:00 AM TABLET BY ([facility] Oral Tablet 25 EDT MOUTH Medi heri - [facility] mg 25 mg TWICE A [place] Me dical DAY [facility]) This may be an active medication. No end date is available. Metoprolol METOPROLOL 07/14/2019 take 1 RP NEXTGEN Tartrate 25 MG TARTRATE 12:00:00 AM tablet by ([facility] Oral Tablet 25 EST oral route Medical - [facility] mg 25 mg 2 times [place] Me [facility]ical every day Group [facility]) This may be an active medication. No end date is available. Levothyroxine LEVOTHYROXINE 01/20/2019 take 1 RP NEXTGEN Sodium 0.05 MG SODIUM 12:00:00 AM tablet by ([facility] Oral Tablet 50 EDT oral route Medical - [facility] mcg 50 mcg four days [facility] per week Group [facility]) (taking other dosing of 75mcg on other days) This may be an active medication. No end date is available. Levothyroxine LEVOTHYROXINE 01/20/2019 take 1 RP NEXTGEN Sodium 0.075 MG SODIUM 12:00:00 AM tablet by ([facility] Oral Tablet 75 EDT oral route Medical - Mt mcg 75 mcg 3 days per [facility] week (MWF); Medical take other Group PC) dose on the remaining days This may be an active medication. No end date is available. Furosemide 40 MG LASIX 01/20/2019 take 1 RP NEXTGEN Oral Tablet 12:00:00 AM EDT tablet by ([facility] [Lasix] 40 mg 40 oral route Medical - [facility] mg every day [place] [facility]) This may be an active medication. No end date is available. Acetaminophen 325 Oxycodone 06/01/2017 TABLET {Capsule} ORAL com pleted White MG / Oxycodone Hcl/Acetaminophen 01:17:00 PM [facility] Hydrochloride 5 MG EST H ospital Oral Tablet Oxycodone Hcl/Acetaminophen Acetaminophen 325 Oxycodone/Acetamin 03/07/2017 TABLET {Capsule} ORAL completed [facility] MG / Oxycodone ophen 08:14:00 AM [facility] Hydrochloride 5 MG EDT H ospital Oral Tablet [Percocet] Oxycodone/Acetamin ophen Ondansetron 4 MG Ondansetron Hcl 03/07/2017 TABLET 4 mg ORAL comp leted [facility] Disintegrating 08:14:00 AM [facility] Oral Tablet EDT Hospital Ondansetron Hcl Docusate Sodium Docusate Sodium 03/07/2017 CAPSULE 100 mg ORAL co mpleted White 100 MG Oral 08:14:00 AM [facility] Capsule EDT Hospital apixaban 5 MG Oral apixaban 5 mg oral 01/09/2017 TABLET 1 {tab(s)} ORAL completed [facility] Tablet apixaban 5 tablet 01:26:24 PM e Health mg oral tablet EDT Syste m Amiodarone amiodarone 200 mg 01/09/2017 TABLET 1 {tab(s)} ORAL co mpleted [facility] hydrochloride 200 oral tablet 01:26:08 PM e Health MG Oral Tablet EDT Syste m amiodarone 200 mg oral tablet Cholecalciferol cholecalciferol 01/09/2017 TABLET 1 {tab(s)} ORAL completed [facility] 2000 UNT Oral 2000 intl units 10:58:17 AM e Health Tablet oral tablet EDT System cholecalciferol 2000 intl units oral tablet Calcium Carbonate Calcium 600+D 600 01/09/2017 TABLET 1 {dose} ORAL completed [facility] 1500 MG / mg-200 intl units 10:57:06 AM e Health Cholecalciferol oral tablet EDT System 200 UNT Oral Tablet Calcium 600+D 600 mg-200 intl units oral tablet Hydrochlorothiazid hydroCHLOROthiazid 01/09/2017 CAPSULE 1 {cap(s)} ORAL completed [facility] e 12.5 MG Oral e 12.5 mg oral 10:56:39 AM e Health Capsule capsule EDT System hydroCHLOROthiazid e 12.5 mg oral capsule Losartan Potassium losartan 50 mg 01/09/2017 TABLET 1 {tab(s)} ORAL completed [facility] 50 MG Oral Tablet oral tablet 10:54:21 AM e Health losartan 50 mg EDT Syste m oral tablet Naproxen 500 MG naproxen 500 mg 06/18/2015 TABLET 1 {tab(s)} ORAL completed [facility] Oral Tablet oral tablet 02:12:18 PM e Health naproxen 500 mg EST Syst em oral tablet Check with your doctor before becoming p regnant.May cause drowsiness or dizziness.Obtain medical advice before t aking any non-prescription drugs as some may affect the action of this medication.Trevon e with food or milk. Ibuprofen IBU 600 08/24/2013 TABLET 1 {tab(s)} ORAL completed [facility] 600 MG Oral mg oral 07:27:41 PM Health Tablet tablet EDT System [Ibu] IBU 600 mg oral tablet Do not take this drug if you are pregnan t.It is very important that you take or use this exactly as directed. Do not skip d oses or discontinue unless directed by your doctor.May cause drowsiness or dizziness .Obtain medical advice before taking any non-prescription drugs as some may affec t the action of this medication.Take with food or milk. Ondansetron 4 MG ondansetron 4 mg 08/24/2013 1 ORAL compl eted [facility] Oral Strip oral 07:26:44 PM {tab(s)} Health ondansetron 4 mg disintegrating EDT System oral strip disintegrating strip Check with your doctor before becoming p regnant.Do not chew, break, or crush.Obtain medical advice before taking any non-pre scription drugs as some may affect the action of this medication. Furosemide 40 MG Furosemide TABLET 40 mg ORAL active [facility] Oral Tablet [facility] Amiodarone Amiodarone Hcl TABLET 200 ORAL completed [facility] hydrochloride [address] MG Oral Tablet Hospi bro [[place]] Amiodarone Hcl Synthroid 0 ORAL completed [facility] System Calcium Carbonate Calcium TABLET 1 ORAL active [facility] 1250 MG Oral Tablet Carbonate {[facility]} [facility] Levothyroxine Levothyroxine TABLET 50 ug ORAL active White Sodium 0.[address] ains Oral Tablet Hospital [Synthroid] Amiodarone Amiodarone Hcl TABLET 200 ORAL completed [facility] hydrochloride [address]ins MG Oral Tablet Hospi bro [[place]one] Amiodarone Hcl 24 HR metoprolol Metoprolol SUSTAINED 25 mg ORAL completed [facility] succinate 25 MG Succinate RELEASE [facility] Extended Release TABLET H ospital Oral Tablet [Toprol] Metoprolol Succinate pitavastatin 4 MG Pitavastatin TABLET 4 mg ORAL completed [facility] Oral Tablet Calcium Plain s [Livalo] Hospital Pitavastatin Calcium apixaban 5 MG Oral Apixaban TABLET 1 ORAL active White Tablet [Eliquis] {[facility] Apixaban [facility]} [facility] Multivitamins TABLET 1 ORAL active Wh ite {[facility]} [facility] Clindamycin 0.01 Clindamycin GEL 1 TOPICAL completed [facility] MG/MG Topical Gel Phosphate {Appl [facility] [Clindagel] [facility] Clindamycin r} Phosphate Cholecalciferol Cholecalciferol CAPSULE 4000 ORAL active [facility] 2000 UNT Oral [facility] Capsule [facility] Levothyroxine Levothyroxine TABLET 75 ug ORAL active White Sodium 0.[address]ins Oral Tablet Hospital [Synthroid] apixaban 5 MG Oral Apixaban TABLET ORAL completed White Tablet [Eliquis] [facility] Hydrochlorothiazide Avalide 150 TABLET 1 ORAL completed [facility] 12.5 MG / mg-12.5 mg oral {tab( Health irbesartan 150 MG tablet s)} System Oral Tablet [Avalide] Avalide 150 mg-12.5 mg oral tablet Hydrochlorothiazide Irbesartan/[place] TABLET 1 ORAL comple nancy White 12.5 MG / chlorothiazide {Each [facility] irbesartan 150 MG } Ho spital Oral Tablet Irbesartan/Hydrochl orothiazide Insurance Providers Payer name Policy type Policy ID Covered Covered alliance party's Policy P tobias / Coverage alliance party ID relationship to Scott Inf ormation type scott MDCR Medicare [id number] 1 [id number] Part B Par 8 Providers [place] [id number] [facility] 45 BLUE CROSS [id number] PT [id number] OTHER 45 MEDICARE [id number] PT [id number] 8 BLUE CROSS [id number] PT [id number] [place]TE 1 Blue Cross PPO Blue Cross [id number] 1 [id number] 45 Medicare Part Medicare [id number] 1 [id number] B Outpatient 8 [place] [id number] BCBS 1 MDCR Medicare [id number] 1 [id number] Part B Par 8 Providers [place] [id number] [facility] Medicare 45 Problems, Conditions, and Diagnoses Code Display Name Description Problem Type Effective Data Sour ce(s) Dates R94.5 Abnormal results Elevated LFTs Diagnosis 06/18/2019 NEXTG EN of liver function 03:00:00 PM ([facility] ount studies [facility]) E03.9 Hypothyroidism, Hypothyroidism, Diagnosis 06/18/2019 NEXT GEN unspecified unspecified 03:00:00 PM ([facility]) I48.0 Paroxysmal atrial Paroxysmal atrial Diagnosis 06/18/2019 NEXTGEN fibrillation fibrillation 03:00:00 PM [facility] R00.2 Palpitations R00.2 Diagnosis 06/11/2019 Vanc[facility] 01:30:00 PM Hospital EST Z95.0 Presence of Z95.0 Diagnosis 06/11/2019 Vancleve cardiac pacemaker 01:30:00 PM Hospit al EST I10 Essential I10 Diagnosis 06/11/2019 Vancleve (primary) 01:30:00 PM Hospital hypertension EST I48.19 I48.19 I48.19 Diagnosis 06/11/2019 Vancleve 01:30:00 PM Hospital EST Z71.89 Other specified Counseling about Diagnosis 01/20/2019 NEX TGEN counseling travel 10:45:00 AM ([facility]) R22.2 Localized Subcutaneous mass Diagnosis 01/20/2019 NEXTGEN swelling, mass of abdominal wall 10:45:00 AM ([facility] and lump, trunk [facility]) Z95.0 Presence of Status post cardiac Diagnosis 01/20/2019 NEXT GEN cardiac pacemaker pacemaker procedure 10:45:00 AM ([facility]) Z86.79 Personal history History of atrial Diagnosis 01/20/2019 N EXTGEN of other diseases fibrillation 10:45:00 AM ([facility] circulatory Counts Include [facility]) I50.9 Heart failure, Congestive heart Diagnosis 01/20/2019 NEXT GEN unspecified failure, 10:45:00 AM ([facility] unspecified HF [facility] chronicity, Counts Include [facility] unspecified heart Group P C) failure type Z95.2 Presence of Status post mitral Diagnosis 01/20/2019 NEXTG EN prosthetic heart valve replacement 10:45:00 AM ([facility] valve [facility]) E78.5 Hyperlipidemia, Hyperlipidemia, Diagnosis 01/20/2019 NEXT GEN unspecified unspecified 10:45:00 AM ([facility] hyperlipidemia type [facility] Medic [facility]) 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[facility] unspecified knee replacement 09:18:00 AM [facility] knee [facility] joint M25.561 Pain in right Right knee pain Diagnosis 12/19/2018 [facility] knee 09:18:00 AM [facility] R26.2 Difficulty in Difficulty walking Diagnosis 12/19/2018 [facility] walking, not 09:18:00 AM [facility] classified N39.0 Urinary tract Urinary tract Diagnosis 12/19/2018 [facility] infection, site infection, site not 12:00:00 AM Childs not specified specified [facility] 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 single Diagnosis 08/30/2018 NEXT GEN thyroid nodule thyroid nodule 12:00:00 AM ([facility]) L03.313 Cellulitis of Cellulitis of chest Diagnosis 07/04/2018 NE XTGEN chest wall wall 10:00:00 AM ([facility]) Surgeries/Procedures Procedure Description Date Indications Data Source(s) Diagnostic radiography of 06/11/2019 [facility] chest, combined 12:00:00 AM Hospital posteroanterior and lateral EST (procedure) Electrocardiographic 06/11/2019 [facility] procedure (procedure) 12:00:00 AM Hospit al EST IIV4 VACC NO PRSV 0.5 ML IM IIV4 VACC NO PRSV 03/02/2019 NEXTGEN 0.5 ML IM 12:00:00 AM ([facility]) Administration of influenza Admin influenza 03/02/2019 NEXTGEN virus vaccine virus vac 12:00:00 AM ([facility]) COMPLETE CBC W/AUTO DIFF COMPLETE CBC W/AUTO 01/20/2019 NEXTGEN WBC DIFF WBC 12:00:00 AM ([facility]) GLYCOSYLATED HEMOGLOBIN GLYCOSYLATED 01/20/2019 NEXT GEN TEST HEMOGLOBIN TEST 12:00:00 AM ([facility]) LIPID PANEL LIPID PANEL 01/20/2019 NEXTGEN 12:00:00 AM ([facility]) COMPREHEN METABOLIC PANEL COMPREHEN METABOLIC 01/20/2019 NEXTGEN PANEL 12:00:00 AM ([facility]) OFFICE/OUTPATIENT VISIT EST OFFICE/OUTPATIENT 01/20/2019 NEXTGEN VISIT EST 12:00:00 AM ([facility]) ASSAY THYROID STIM HORMONE ASSAY THYROID STIM 08/30/2018 NEXTGEN HORMONE 12:00:00 AM ([facility]) ROUTINE VENIPUNCTURE ROUTINE 08/30/2018 NEXTGEN VENIPUNCTURE 12:00:00 AM ([facility]) OFFICE/OUTPATIENT VISIT EST OFFICE/OUTPATIENT 07/04/2018 NEXTGEN VISIT EST 12:00:00 AM ([facility]) Venipuncture 04/17/2018 [facility] 12:00:18 PM Health System EST - 04/17/2018 12:00:18 PM EST T3 Uptake 04/17/2018 [facility] 11:42:13 AM Health System EST - 04/17/2018 11:42:13 AM EST T4 Thyroxine 04/17/2018 [facility] 11:42:13 AM Health System EST - 04/17/2018 11:42:13 AM EST Venipuncture 02/06/2018 [facility] 11:00:12 AM [facility] EDT - 02/06/2018 11:00:12 AM EDT Venipuncture 05/08/2017 [facility] 10:00:06 AM [facility] EST - 05/08/2017 10:00:06 AM EST Venipuncture 02/26/2017 [facility] 11:00:09 AM [facility] EDT - 02/26/2017 11:00:09 AM EDT Electrocardiogram 12 Lead 02/26/2017 [facility] 09:24:00 AM [facility] EDT - 02/26/2017 09:24:00 AM EDT Venipuncture 01/19/2017 [facility] 11:00:07 AM [facility] EDT - 01/19/2017 11:00:07 AM EDT Electrocardiogram 12 Lead 01/09/2017 [facility] 09:51:00 AM [facility] EDT - 01/09/2017 09:51:00 AM EDT Echocardiogram 2D 01/08/2017 [facility] 01:39:00 PM [facility] EDT - 01/08/2017 01:39:00 PM EDT Electrocardiogram 12 Lead 01/08/2017 [facility] 01:16:00 PM [facility] EDT - 01/08/2017 01:16:00 PM EDT Holter Monitor, 24 Hour 01/08/2017 [facility] 12:14:00 PM [facility] EDT - 01/08/2017 12:14:00 PM EDT Venipuncture 12/06/2015 [facility] 10:00:03 AM [facility] EDT - 12/06/2015 10:00:03 AM EDT XR Fingers 2 Views-Left 06/18/2015 [facility] 12:41:00 PM Health System EST - 06/18/2015 12:41:00 PM EST Venipuncture 05/03/2015 [facility] 01:00:03 PM [facility] EST - 05/03/2015 01:00:03 PM EST Venipuncture 01/27/2014 [facility] 11:00:05 AM [facility] EDT - 01/27/2014 11:00:05 AM EDT Electrocardiogram 12 Lead 08/24/2013 [facility] 02:11:00 PM [facility] EDT - 08/24/2013 02:11:00 PM EDT XR Chest PA and Left 03/03/2013 [facility] L[facility] 11:01:00 AM [facility] EDT - 03/03/2013 11:01:00 AM EDT Venipuncture 11/07/2012 [facility] 12:00:00 AM [facility] EDT - 11/07/2012 12:00:00 AM EDT Results ID Date Data Source [id number] 06/11/2019 01:35:00 PM [facility] Name Value Range Interpretation Description Data Sup porting Code Source(s) Document(s ) Thyroxine 1.8 ng/dL [facility] (T4) free Hospital [Mass/volume] in Serum or Plasma ID Date Data Source [id number] 06/11/2019 01:35:00 PM [facility] Name Value Range Interpretation Description Data Sup porting Code Source(s) Document(s ) Thyrotropin 1.811 [facility] [Units/volume] u[IU]/mL Hospital in Serum or Plasma by Detection limit <= 0.005 mIU/L ID Date Data Source [id number] 06/11/2019 01:35:00 PM [facility] Name Value Range Interpretation Description Data Sup porting Code Source(s) Document(s ) Natriuretic 419.3 V[facility]le[facility] peptide B pg/mL Hospital [Mass/volume] in Serum or Plasma ID Date Data Source [id number] 06/11/2019 01:35:00 PM [facility] TEST PERFORMED BY [employer] [facility] ULTRA SENSITIVE CENTAUR CHEMILUMINESCENCE METHOD. Name Value Range Interpretation Description Data Sup porting Code Source(s) Document(s ) Troponin 0.01 Vancleve I.cardiac ng/mL Hospital [Mass/volume ] in Serum or Plasma ID Date Data Source [id number] 06/11/2019 01:35:00 PM EST [facility] Name Value Range Interpretation Description Data Sup porting Code Source(s) Document(s ) Aspartate 53 U/L [facility] aminotransferase [facility] [Enzymatic Hospital activity/volume] in Serum or Plasma ID Date Data Source [id number] 06/11/2019 01:35:00 PM EST [facility] Name Value Range Interpretation Description Data Sup porting Code Source(s) Document(s ) Alanine 57 U/L White aminotransferase [facility] [Enzymatic Hospital activity/volume] in Serum or Plasma ID Date Data Source [id number] 06/11/2019 01:35:00 PM [facility] Value Range Interpretation Description Data Sup porting Code Source(s) Document(s ) Alkaline 203 U/L [facility] phosphatase Hospital [Enzymatic activity/volume ] in Serum or Plasma ID Date Data Source [id number] 06/11/2019 01:35:00 PM [facility] Name Value Range Interpretation Description Data Sup porting Code Source(s) Document(s ) Bilirubin.t 1.6 mg/dL [facility] [Mass/volum e] in Serum or Plasma ID Date Data Source [id number] 06/11/2019 01:35:00 PM [facility] Name Value Range Interpretation Code Description Data Toma rce(s) Supporting Document(s ) Albumin/Glob 2.9 [facility] ulin [Mass Hospital Ratio] in Serum or Plasma ID Date Data Source [id number] 06/11/2019 01:35:00 PM [facility] Name Value Range Interpretation Description Data Sup porting Code Source(s) Document(s ) Albumin 4.1 g/dL [facility] [Mass/volume Hospital ] in Serum or Plasma ID Date Data Source [id number] 06/11/2019 01:35:00 PM EST [facility] Name Value Range Interpretation Description Data Sup porting Code Source(s) Document(s ) Protein 5.5 g/dL [facility] [Mass/volume Hospital ] in Serum or Plasma ID Date Data Source [id number] 06/11/2019 01:35:00 PM EST [facility] Name Value Range Interpretation Description Data Sup porting Code Source(s) Document(s ) Calcium 9.1 mg/dL [facility] [Mass/volume Hospital ] in Serum or Plasma ID Date Data Source [id number] 06/11/2019 01:35:00 PM EST [facility] Value Range Interpretation Code Description Data Toma rce(s) Supporting Document(s ) Urea 24.6 [facility] nitrogen/Cre [facility] atinine [Mass Ratio] in Serum or Plasma ID Date Data Source [id number] 06/11/2019 01:35:00 PM EST [facility] Name Value Range Interpretation Description Data Sup porting Code Source(s) Document(s ) Creatinine 1.1 mg/dL [facility] [Mass/volume] Hospital in Serum or Plasma ID Date Data Source [id number] 06/11/2019 01:35:00 PM EST [facility] Name Value Range Interpretation Description Data Sup porting Code Source(s) Document(s ) Urea 27 mg/dL [facility] nitrogen Hospital [Mass/volume ] in Serum or Plasma ID Date Data Source [id number] 06/11/2019 01:35:00 PM EST [facility] Name Value Range Interpretation Code Description Data Toma rce(s) Supporting Document(s ) Anion gap in 13 [facility] Serum or [facility] Plasma ID Date Data Source [id number] 06/11/2019 01:35:00 PM EST [facility] Name Value Range Interpretation Description Data Sup porting Code Source(s) Document(s ) Carbon 28 mmol/L [facility] dioxide, Hospital total [Moles/volu me] in Serum or Plasma ID Date Data Source [id number] 06/11/2019 01:35:00 PM [facility] Name Value Range Interpretation Description Data Sup porting Code Source(s) Document(s ) Chloride 108 [facility] [Moles/volum mmol/L Hospital e] in Serum or Plasma ID Date Data Source [id number] 06/11/2019 01:35:00 PM [facility] Name Value Range Interpretation Description Data Sup porting Code Source(s) Document(s ) Potassium 4.4 [facility] [Moles/volume mmol/L Hospital ] in Serum or Plasma ID Date Data Source [id number] 06/11/2019 01:35:00 PM [facility] Name Value Range Interpretation Description Data Sup porting Code Source(s) Document(s ) Sodium 145 mmol/L [facility] [Moles/volu Hospital me] in Serum or Plasma ID Date Data Source [id number] 06/11/2019 01:35:00 PM [facility] Name Value Range Interpretation Description Data Sup porting Code Source(s) Document(s ) Glucose 88 mg/dL [facility] [Mass/volume Hospital ] in Serum or Plasma ID Date Data Source [id number] 06/11/2019 01:35:00 PM [facility] THERAPEUTIC RANGES:UNFRACTIONATED HEPARI N THERAPY: 60-90 SECONDSARGATROBAN THERAPY: 49-99 SECONDS Name Value Range Interpretation Description Data Sup porting Code Source(s) Document(s ) aPTT in 37.6 s [facility] Platelet poor [facility] plasma by Coagulation assay ID Date Data Source [id number] 06/11/2019 01:35:00 PM [facility] THERAPEUTIC RANGE FOR STANDARD ORALANTIC OAGULANT THERAPY: 2.0-3.0THERAPEUTIC RANGE FOR HIGH DOSE ORALANTICOAGULANT THERAPY (MECHANICAL HEARTVALVE REPLACEMENT): 2.5-3.5 Name Value Range Interpretation Description Data Sup porting Code Source(s) Document(s ) INR in Platelet 1.8 [facility] poor plasma by Hospital Coagulation assay ID Date Data Source [id number] 06/11/2019 01:35:00 PM [facility] Name Value Range Interpretation Description Data Sup porting Code Source(s) Document(s ) PT panel - 20.4 s [facility] Platelet poor [facility] plasma by Coagulation assay ID Date Data Source [id number] 06/11/2019 01:35:00 PM [facility] Name Value Range Interpretation Description Data Sup porting Code Source(s) Document(s ) Differential AUTOMATED [facility] cell count [facility] method - Blood ID Date Data Source [id number] 06/11/2019 01:35:00 PM [facility] Name Value Range Interpretation Description Data Sup porting Code Source(s) Document(s ) Immature 0.04 [facility] granulocytes 10*3/uL Hospital [#/volume] in Blood by Automated count ID Date Data Source [id number] 06/11/2019 01:35:00 PM [facility] Name Value Range Interpretation Description Data Sup porting Code Source(s) Document(s ) Basophils 0.08 [facility] [#/volume] in 10*3/uL Hospital Blood by Automated count ID Date Data Source [id number] 06/11/2019 01:35:00 PM [facility] Name Value Range Interpretation Description Data Sup porting Code Source(s) Document(s ) Eosinophils 0.08 [facility] [#/volume] in 10*3/uL Hospital Blood by Automated count ID Date Data Source [id number] 06/11/2019 01:35:00 PM EST [facility] Name Value Range Interpretation Description Data Sup porting Code Source(s) Document(s ) Monocytes 0.88 [facility] [#/volume] in 10*3/uL [facility] Blood by Automated count ID Date Data Source [id number] 06/11/2019 01:35:00 PM EST [facility] Value Range Interpretation Description Data Sup porting Code Source(s) Document(s ) Lymphocytes 1.76 [facility] [#/volume] in 10*3/uL [facility] Blood by Automated count ID Date Data Source [id number] 06/11/2019 01:35:00 PM EST [facility] Value Range Interpretation Description Data Sup porting Code Source(s) Document(s ) Neutrophils 7.20 [facility] [#/volume] in 10*3/uL [facility] Blood by Automated count ID Date Data Source [id number] 06/11/2019 01:35:00 PM [facility] Value Range Interpretation Description Data Sup porting Code Source(s) Document(s ) Nucleated 0.0 % [facility] erythrocytes/10 Hospital 0 leukocytes [Ratio] in Blood by Automated count ID Date Data Source [id number] 06/11/2019 01:35:00 PM [facility] Value Range Interpretation Description Data Sup porting Code Source(s) Document(s ) Immature 0.4 % [facility] granulocytes/10 Hospital 0 leukocytes in Blood by Automated count ID Date Data Source [id number] 06/11/2019 01:35:00 PM [facility] Value Range Interpretation Description Data Sup porting Code Source(s) Document(s ) Basophils/100 0.8 % [facility] leukocytes in Hospital Blood by Automated count ID Date Data Source [id number] 06/11/2019 01:35:00 PM EST [facility] Name Value Range Interpretation Description Data Sup porting Code Source(s) Document(s ) Eosinophils/100 0.8 % [facility] leukocytes in Hospital Blood by Automated count ID Date Data Source [id number] 06/11/2019 01:35:00 PM EST [facility] Name Value Range Interpretation Description Data Sup porting Code Source(s) Document(s ) Monocytes/100 8.8 % [facility] leukocytes in Hospital Blood by Automated count ID Date Data Source [id number] 06/11/2019 01:35:00 PM EST [facility] Name Value Range Interpretation Description Data Sup porting Code Source(s) Document(s ) Lymphocytes/10 17.5 % [facility] 0 leukocytes Hospital in Blood by Automated count ID Date Data Source [id number] 06/11/2019 01:35:00 PM EST [facility] Name Value Range Interpretation Description Data Sup porting Code Source(s) Document(s ) Neutrophils/10 71.7 % [facility] 0 leukocytes Hospital in Blood by Automated count ID Date Data Source [id number] 06/11/2019 01:35:00 PM EST [facility] Name Value Range Interpretation Description Data Sup porting Code Source(s) Document(s ) Platelet mean 10.2 fL [facility] volume Hospital [Entitic volume] in Blood by Automated count ID Date Data Source [id number] 06/11/2019 01:35:00 PM EST [facility] Name Value Range Interpretation Description Data Sup porting Code Source(s) Document(s ) Platelets 222 [facility] [#/volume] in 10*3/uL Hospital Blood by Automated count ID Date Data Source [id number] 06/11/2019 01:35:00 PM EST [facility] Name Value Range Interpretation Description Data Sup porting Code Source(s) Document(s ) Erythrocyte 15.0 % [facility] distribution Hospital width [Ratio] by Automated count ID Date Data Source [id number] 06/11/2019 01:35:00 PM [facility] Value Range Interpretation Description Data Sup porting Code Source(s) Document(s ) Erythrocyte mean 32.7 [facility] corpuscular g/dL Hospital hemoglobin concentration [Mass/volume] by Automated count ID Date Data Source [id number] 06/11/2019 01:35:00 PM [facility] Value Range Interpretation Description Data Sup porting Code Source(s) Document(s ) Erythrocyte 29.0 pg [facility] corpuscular hemoglobin [Entitic mass] by Automated count ID Date Data Source [id number] 06/11/2019 01:35:00 PM [facility] Value Range Interpretation Description Data Sup porting Code Source(s) Document(s ) Erythrocyte 88.6 fL [facility] corpuscular volume [Entitic volume] by Automated count ID Date Data Source [id number] 06/11/2019 01:35:00 PM [facility] Value Range Interpretation Description Data Sup porting Code Source(s) Document(s ) Hematocrit 36.7 % [facility] [Volume Hospital Fraction] of Blood by Automated count ID Date Data Source [id number] 06/11/2019 01:35:00 PM [facility] Value Range Interpretation Description Data Sup porting Code Source(s) Document(s ) Hemoglobin 12.0 g/dL [facility] [Mass/volume] Hospital in Blood ID Date Data Source [id number] 06/11/2019 01:35:00 PM [facility] Value Range Interpretation Description Data Sup porting Code Source(s) Document(s ) Erythrocytes 4.14 [facility] [#/volume] in 10*6/uL Hospital Blood by Automated count ID Date Data Source [id number] 06/11/2019 01:35:00 PM EST [facility] Name Value Range Interpretation Description Data Sup porting Code Source(s) Document(s ) Leukocytes 10.0 [facility] [#/volume] in 10*3/uL Hospital Blood by Automated count ID Date Data Source [id number] 12/19/2018 09:34:00 AM EDT [facility] Name Value Range Interpretation Description Data Sup porting Code Source(s) Document(s ) Color YELLOW Yellow Normal (applies Color [facility] to non-numeric Health results) System Appearance of CLEAR Clear Normal (applies Urine [facility] Urine to non-numeric Appearance Health results) System Specific 1.020 1.001 - Normal (applies Urine Specific [facility] gravity of 1.035 to non-numeric [facility] Urine results) System pH.. 6.0 4.6 - 8.0 Normal (applies pH.. [facility] {pH_units} pH units to non-numeric Health results) System Glucose, UA NEGATIVE < 50 Normal (applies Glucose, UA [facility] mg/dl to non-numeric Health results) System Protein NEGATIVE < 30 Normal (applies Protein [facility] [Mass/volume] mg/dl to non-numeric Health in Serum or results) System Plasma Bilirubin NEGATIVE Negative Normal (applies Bilirubin [facility] Urine Sm to Lg to non-numeric Urine Health results) System Urobilinogen 0.2 mg/dL 0.2 - 1.0 Normal (applies Urobilinogen [facility] [Mass/volume] mg/dL to non-numeric UA Health in Urine results) System Ketones NEGATIVE Negative Normal (applies Ketones UA [facility] [Mass/volume] mg/dL to non-numeric Health in Urine results) System Nitrate+Nitrit NEGATIVE Negative Normal (applies Nitrite [facility] Neg/Pos to non-numeric Health [Mass/volume] results) System in Unspecified specimen Leukocyte NEGATIVE Negative Normal (applies Leukocyte [facility] esterase Tr to Lg to non-numeric Esterase Health [Units/volume] results) Concentration System in Urine Leukocytes 4 {/HPF} 0 - 2 Normal (applies White Blood [facility] [#/volume] in /HPF to non-numeric Cells Health Unspecified results) System specimen by Automated count Red Blood 1 {/HPF} 0 - 1 Normal (applies Red Blood [facility] Cells /HPF to non-numeric Cells Health results) System Epithelial 5 {/HPF} 0 - 3 Normal (applies Epithelial [facility] cells /HPF to non-numeric Cells Health [Presence] in results) System Unspecified specimen by Wet preparation Bacteria 1+ 0 - 1+ Abnormal Bacteria [facility] [Presence] in /HPF (applies to Health Unspecified non-numeric System specimen results) Urine Blood NEGATIVE Negative Normal (applies Urine Blood [facility] Sm to Lg to non-numeric Health results) System ID Date Data Source [id number] 12/19/2018 09:31:00 AM EDT [facility] Name Value Range Interpretation Description Data Sup porting Code Source(s) Document(s ) Deprecated NO GROWTH Aerobic [facility] Bacteria Culture, Urine Health System identified in Urine by Aerobe culture ID Date Data Source [id number] 04/17/2018 10:58:00 AM EST [facility] Name Value Range Interpretation Description Data Source(s ) Supporting Code Document(s ) HgK7LDe 115.44 Normal (applies to GrI6FEw [facility] non-numeric Health System results) tHbWB 3786.67 Normal (applies to tHbWB [facility] non-numeric Health System results) %HbA1C 4.94 % 3.00 - Normal (applies to %HbA1C [facility] 6.50 % non-numeric Health System results) ID Date Data Source [id number] 04/17/2018 10:58:00 AM EST [facility] Name Value Range Interpretation Description Data Sup porting Code Source(s) Document(s ) Thyroid 1.00 <9 IU/mL Normal (applies Thyroid [facility] Peroxidase {IU/mL} to non-numeric Peroxidase Health Antibody results) Antibody System Test Performed at:[employer] [facility] [address] Brown M.D. ID Date Data Source [id number] 04/17/2018 10:58:00 AM EST [facility] Name Value Range Interpretation Description Data Sup porting Code Source(s) Document(s ) Leukocytes 6.9 4.8 - Normal (applies WBC Count [facility] [#/volume] in {10^3_u 10.8 to non-numeric Health Unspecified L} 10^3 uL results) System specimen by Automated count Erythrocytes 3.43 3.80 - Below low normal RBC Count [facility] [#/volume] in {10^6_u 5.20 Health Blood by L} 10^6 uL System Automated count Hemoglobin 11.4 12.0 - Below low normal Hemoglobin [facility] [Mass/volume] in {gm/dL} 16.0 Health Blood gm/dL System Hematocrit 31.2 % 36.0 - Below low normal Hematocrit [facility] [Volume 46.0 % Health Fraction] of System Blood Erythrocyte mean 91.0 fl 83.0 - Normal (applies MCV [facility] corpuscular 98.0 fl to non-numeric Health volume [Entitic results) System volume] by Automated count Erythrocyte mean 33.2 pg 26.0 - Normal (applies MCH [facility] corpuscular 34.0 pg to non-numeric Health hemoglobin results) System [Entitic mass] by Automated count Erythrocyte mean 36.5 33.0 - Normal (applies MCHC [facility] corpuscular {gm/dL} 37.0 to non-numeric Health hemoglobin gm/dL results) System concentration [Mass/volume] by Automated count Erythrocyte 15.0 % 11.5 - Above high RDW-CV [facility] distribution 14.5 % normal Health width [Entitic System volume] by Automated count Platelets 273 130 - Normal (applies Platelet Count [facility] [#/volume] in {10^3_u 400 to non-numeric Health Plasma by L} 10^3 uL results) System Automated count Platelet mean 10.9 fl 7.4 - Above high MPV [facility] volume [Entitic 10.4 fl normal Health volume] in Blood System by Automated count Monocytes 0.6 0.3 - Normal (applies Monocyte # [facility] [#/volume] in {10^3_u 0.9 to non-numeric Health Blood by Manual L} 10^3 uL results) System count Eosinophils 0.26 0.05 - Normal (applies Eosinophil # [facility] [#/volume] in {10^3_u 0.30 to non-numeric Health Blood L} 10^3 uL results) System Neutrophils 4.4 2.0 - Normal (applies Neutrophil # [facility] [#/volume] in {10^3_u 8.1 to non-numeric Health Body fluid L} 10^3 uL results) System Basophils 0.07 0.00 - Normal (applies Basophil # [facility] [#/volume] in {10^3_u 0.10 to non-numeric Health Blood by L} 10^3 uL results) System Automated count Lymphocyte # 1.6 1.0 - Normal (applies Lymphocyte # [facility] {10^3_u 5.5 to non-numeric Health L} 10^3 uL results) System Neutrophils/100 63.7 % 55.0 - Normal (applies Neutrophil % [facility] leukocytes in 75.0 % to non-numeric Health Blood by results) System Automated count Monocytes/100 8.3 % 6.0 - Normal (applies Monocyte % [facility] leukocytes in 9.0 % to non-numeric Health Blood results) System Eosinophils/100 3.8 % 0.0 - Normal (applies Eosinophil % [facility] leukocytes in 4.0 % to non-numeric Health Unspecified results) System specimen Basophils/100 1.0 % 0.0 - Normal (applies Basophil % [facility] leukocytes in 1.0 % to non-numeric Health Unspecified results) System specimen by Manual count Lymphocytes 22.9 % 21.0 - Normal (applies Lymphocyte % [facility] [#/volume] in 51.0 % to non-numeric Health Blood by results) System Automated count Immature 0.3 % 0.0 - Normal (applies Immature [facility] Granulocytes % 0.8 % to non-numeric Granulocytes % Healt h results) System Nucleated 0.0 0.0 - Normal (applies NRBC % [facility] erythrocytes {/100_W 0.0 to non-numeric Health [#/volume] in BC} /100 results) System Body fluid WBC Immature 0.02 0.00 - Normal (applies Immature [facility] Granulocytes # {10^3_u 0.09 to non-numeric Granulocytes # Healt h L} 10^3 uL results) System NRBC # 0.00 0.90 - Below low normal NRBC # [facility] {10^3_u 11.20 Health L} 10^3 uL System ID Date Data Source [id number] 04/17/2018 10:58:00 AM EST [facility] Name Value Range Interpretation Description Data Source(s ) Supporting Code Document(s ) T4 Free 0.78 0.71 - Normal (applies to T4 Free [facility] ng/ml 1.85 non-numeric Health System ng/ml results) ID Date Data Source [id number] 04/17/2018 10:58:00 AM [facility] Name Value Range Interpretation Description Data Sup porting Code Source(s) Document(s ) Thyrotropin 9.281 0.380 - Above high normal Thyroid [facility] [Mass/volume] {mIU/mL} 6.150 Stimulating Health in Serum or mIU/mL Hormone, System Plasma Serum ID Date Data Source [id number] 04/17/2018 10:58:00 AM [facility] Name Value Range Interpretation Description Data Sup porting Code Source(s) Document(s ) Sodium 143 137 - Normal (applies Sodium, Serum [facility] [Moles/volume] in mmol/L 145 to non-numeric Health Serum or Plasma mmol/L results) System Potassium 4.2 3.6 - Normal (applies Potassium, [facility] [Mass/volume] in mmol/L 5.0 to non-numeric Serum Health Serum or Plasma mmol/L results) System Chloride 106 98 - Normal (applies Chloride, [facility] [Moles/volume] in mmol/L 107 to non-numeric Serum Health Serum or Plasma mmol/L results) System Carbon dioxide, 27.0 22.0 - Normal (applies CO2, Serum [facility] total mmol/L 30.0 to non-numeric Health [Moles/volume] in mmol/L results) System Serum or Plasma Total Protein 6.7 6.3 - Normal (applies Total Protein [facility] mg/dl 8.2 to non-numeric Health mg/dl results) System Glucose 93 65 - Normal (applies Glucose, [facility] [Mass/volume] in mg/dL 105 to non-numeric Serum Health Serum or Plasma mg/dL results) System Urea nitrogen 24 7 - 18 Above high Blood Urea [facility] [Mass/volume] in mg/dl mg/dl normal Nitrogen, Health Serum or Plasma Serum System Creatinine 1.00 0.70 - Normal (applies Creatinine, [facility] [Mass/volume] in mg/dl 1.20 to non-numeric Serum Health Serum or Plasma mg/dl results) System Alkaline 109 38 - Normal (applies Alkaline [facility] phosphatase {IU/L} 126 to non-numeric Phosphatase, Health isoenzymes IU/L results) Serum System [Enzymatic activity/volume] in Serum or Plasma by Heat stability Bilirubin direct 0.7 0.2 - Normal (applies Bilirubin, [facility] and total panel mg/dl 1.3 to non-numeric Serum Total Health [Mass/volume] - mg/dl results) System Serum or Plasma Direct Bilirubin 0.3 0.0 - Normal (applies Direct [facility] mg/dl 0.4 to non-numeric Bilirubin Health mg/dl results) System Aspartate 14 5 - 40 Normal (applies Aspartate [facility] aminotransferase {IU/L} IU/L to non-numeric Transaminase, Heal th [Enzymatic results) Serum System activity/volume] in Serum or Plasma by With P-5'-P Albumin 4.4 3.9 - Normal (applies Albumin, [facility] [Mass/volume] in {gm/dl} 5.0 to non-numeric Serum Health Serum or Plasma gm/dl results) System I. Phosphorus 3.7 2.5 - Normal (applies I. Phosphorus [facility] mg/dl 4.5 to non-numeric Health mg/dl results) System Alanine < 9 7 - 56 Normal (applies Alanine [facility] aminotransferase IU/L to non-numeric Aminotransfer Heal th [Enzymatic results) ase, Serum System activity/volume] in Serum or Plasma Calcium 10.2 8.4 - Normal (applies Calcium, [facility] [Mass/volume] in mg/dl 10.2 to non-numeric Total Serum Health Serum or Plasma mg/dl results) System A/G Ratio 1.91 Normal (applies A/G Ratio [facility] to non-numeric Health results) System Urate 5.2 2.5 - Normal (applies Uric Acid, [facility] [Mass/volume] in mg/dl 7.5 to non-numeric Serum Health Serum or Plasma mg/dl results) System Anion gap in Serum 10.00 8.00 - Normal (applies Anion Gap [facility] or Plasma mmol/L 12.00 to non-numeric Health mmol/L results) System Glomerular 55.61 Normal (applies GFR [facility] filtration to non-numeric Health rate/1.73 sq results) System M.predicted [Volume Rate/Area] in Serum or Plasma by Creatinine-based formula (CKD-EPI) eGFR will provide clinicians with a more accurate indicator of renal function then the serum creatinine. The eGFR is automa tically calculated from an empiric formula (endorsed by the [employer] ion) which incorporates age, sex, and race.Clinicians may notice surprisingly low GFR's with serum creatinine valueswithin normal range- particularly in elderly wo men (with low muscle mass).In the hospital setting, the eGFR should add an element of safety in drug dosing, in assessing the risk of IV contrast administration, and in assessing vascular risk.The NKF staging system is as follows:Normal: eGFR >90 with no kidney markersStage 1: eGFR >90 with kidney markers*Stage 2: eGFR 60- 89Stage 3: eGFR 30-59Stage 4: eGFR 15-29Stage 5: eGFR <15 (usually requir ing dialysis)*Markers include: Proteinuria, Hematuria, abnormal imaging-studies, or other blood or urine test abnormalities ID Date Data Source [id number] 04/17/2018 10:58:00 AM EST [facility] Name Value Range Interpretation Description Data Sup porting Code Source(s) Document(s ) Magnesium 1.8 1.5 - Normal (applies Magnesium, [facility] [Mass/volume {mEq/L} 2.2 to non-numeric Serum Health Syste m ] in Serum mEq/L results) or Plasma ID Date Data Source [id number] 02/06/2018 09:03:00 AM EDT [facility] Name Value Range Interpretation Description Data Sup porting Code Source(s) Document(s ) Type A Normal (applies Type [facility] to non-numeric Health System results) D Ab [Titer] Positive Normal (applies Rh [facility] in Serum or to non-numeric Health System Plasma results) Antibody Negative Normal (applies Antibody [facility] Screen to non-numeric Screen Health System results) ID Date Data Source [id number] 02/06/2018 09:03:00 AM EDT [facility] Name Value Range Interpretation Description Data Sup porting Code Source(s) Document(s ) aPTT in Blood 24.9 20.0 - Normal (applies Activated [facility] by {Second 30.3 to non-numeric Partial Health Coagulation s} Seconds results) Thromboplastin System assay Time ID Date Data Source [id number] 02/06/2018 09:03:00 AM EDT [facility] Name Value Range Interpretation Description Data Sup porting Code Source(s) Document(s ) Prothrombin 10.50 9.40 - Normal (applies Prothrombin [facility] time (PT) {seconds 11.30 to non-numeric time (PT) Health } seconds results) System Prothrombin Ab 1.00 0.70 - Normal (applies INR Result [facility] [Units/volume] {Ratio} 1.10 to non-numeric Health in Serum or Ratio results) System Plasma Normal = 0.7-1.1Therapeutic = 2.0-3.0Mec hanical Heart = 3.0-4.5 ID Date Data Source [id number] 02/06/2018 09:03:00 AM EDT [facility] Name Value Range Interpretation Description Data Sup porting Code Source(s) Document(s ) Leukocytes 6.2 4.8 - Normal (applies WBC Count [facility] [#/volume] in {10^3_u 10.8 to non-numeric Health Unspecified L} 10^3 uL results) System specimen by Automated count Erythrocytes 3.73 3.80 - Below low normal RBC Count [facility] [#/volume] in {10^6_u 5.20 Health Blood by L} 10^6 uL System Automated count Hemoglobin 13.0 12.0 - Normal (applies Hemoglobin [facility] [Mass/volume] in {gm/dL} 16.0 to non-numeric Health Blood gm/dL results) System Hematocrit 34.5 % 36.0 - Below low normal Hematocrit [facility] [Volume 46.0 % Health Fraction] of System Blood Erythrocyte mean 92.5 fl 83.0 - Normal (applies MCV [facility] corpuscular 98.0 fl to non-numeric Health volume [Entitic results) System volume] by Automated count Erythrocyte mean 34.9 pg 26.0 - Above high MCH [facility] corpuscular 34.0 pg normal Health hemoglobin System [Entitic mass] by Automated count Erythrocyte mean 37.7 33.0 - Above high MCHC [facility] corpuscular {gm/dL} 37.0 normal Health hemoglobin gm/dL System concentration [Mass/volume] by Automated count Erythrocyte 14.6 % 11.5 - Above high RDW-CV [facility] distribution 14.5 % normal Health width [Entitic System volume] by Automated count Platelets 245 130 - Normal (applies Platelet Count [facility] [#/volume] in {10^3_u 400 to non-numeric Health Plasma by L} 10^3 uL results) System Automated count Platelet mean 10.4 fl 7.4 - Normal (applies MPV [facility] volume [Entitic 10.4 fl to non-numeric Health volume] in Blood results) System by Automated count Monocytes 0.5 0.3 - Normal (applies Monocyte # [facility] [#/volume] in {10^3_u 0.9 to non-numeric Health Blood by Manual L} 10^3 uL results) System count Eosinophils 0.22 0.05 - Normal (applies Eosinophil # [facility] [#/volume] in {10^3_u 0.30 to non-numeric Health Blood L} 10^3 uL results) System Neutrophils 4.1 2.0 - Normal (applies Neutrophil # [facility] [#/volume] in {10^3_u 8.1 to non-numeric Health Body fluid L} 10^3 uL results) System Basophils 0.04 0.00 - Normal (applies Basophil # [facility] [#/volume] in {10^3_u 0.10 to non-numeric Health Blood by L} 10^3 uL results) System Automated count Lymphocyte # 1.4 1.0 - Normal (applies Lymphocyte # [facility] {10^3_u 5.5 to non-numeric Health L} 10^3 uL results) System Neutrophils/100 65.8 % 55.0 - Normal (applies Neutrophil % [facility] leukocytes in 75.0 % to non-numeric Health Blood by results) System Automated count Monocytes/100 7.5 % 6.0 - Normal (applies Monocyte % [facility] leukocytes in 9.0 % to non-numeric Health Blood results) System Eosinophils/100 3.5 % 0.0 - Normal (applies Eosinophil % [facility] leukocytes in 4.0 % to non-numeric Health Unspecified results) System specimen Basophils/100 0.6 % 0.0 - Normal (applies Basophil % [facility] leukocytes in 1.0 % to non-numeric Health Unspecified results) System specimen by Manual count Lymphocytes 22.4 % 21.0 - Normal (applies Lymphocyte % [facility] [#/volume] in 51.0 % to non-numeric Health Blood by results) System Automated count Immature 0.2 % 0.0 - Normal (applies Immature [facility] Granulocytes % 0.8 % to non-numeric Granulocytes % Healt h results) System Nucleated 0.0 0.0 - Normal (applies NRBC % [facility] erythrocytes {/100_W 0.0 to non-numeric Health [#/volume] in BC} /100 results) System Body fluid WBC Immature 0.01 0.00 - Normal (applies Immature [facility] Granulocytes # {10^3_u 0.09 to non-numeric Granulocytes # [facility]alt [facility] L} 10^3 uL results) System NRBC # 0.00 0.90 - Below low normal NRBC # [facility] {10^3_u 11.20 Health L} 10^3 uL System ID Date Data Source [id number] 02/06/2018 09:03:00 AM EDT [facility] Name Value Range Interpretation Description Data Sup porting Code Source(s) Document(s ) Sodium 144 137 - Normal (applies Sodium, Serum [facility] [Moles/volume mmol/L 145 to non-numeric Health ] in Serum or mmol/L results) System Plasma Potassium 4.0 3.6 - Normal (applies Potassium, [facility] [Mass/volume] mmol/L 5.0 to non-numeric Serum Health in Serum or mmol/L results) System Plasma Chloride 109 98 - 107 Above high normal Chloride, [facility] [Moles/volume mmol/L mmol/L Serum Health ] in Serum or System Plasma Carbon 27.0 22.0 - Normal (applies CO2, Serum [facility] dioxide, mmol/L 30.0 to non-numeric Health total mmol/L results) System [Moles/volume ] in Serum or Plasma Glucose 92 mg/dL 65 - 105 Normal (applies Glucose, Serum [facility] [Mass/volume] mg/dL to non-numeric Health in Serum or results) System Plasma Urea nitrogen 18 mg/dl 7 - 18 Normal (applies Blood Urea [facility] [Mass/volume] mg/dl to non-numeric Nitrogen, Health in Serum or results) Serum System Plasma Creatinine 0.90 0.70 - Normal (applies Creatinine, [facility] [Mass/volume] mg/dl 1.20 to non-numeric Serum Health in Serum or mg/dl results) System Plasma Calcium 9.6 8.4 - Normal (applies Calcium, Total [facility] [Mass/volume] mg/dl 10.2 to non-numeric Serum Health in Serum or mg/dl results) System Plasma Anion gap in 8.00 8.00 - Normal (applies Anion Gap [facility] Serum or mmol/L 12.00 to non-numeric Health Plasma mmol/L results) System ID Date Data Source [id number] 12/19/2017 10:41:00 AM EDT [facility] Name Value Range Interpretation Description Data Sup porting Code Source(s) Document(s ) Color YELLOW Yellow Normal (applies Color [facility] to non-numeric Health results) System Appearance of CLEAR Clear Normal (applies Urine [facility] Urine to non-numeric Appearance Health results) System Specific 1.025 1.001 - Normal (applies Urine Specific [facility] gravity of 1.035 to non-numeric [facility] Urine results) System pH.. 6.0 4.6 - 8.0 Normal (applies pH.. [facility] {pH_units} pH units to non-numeric Health results) System Glucose, UA NEGATIVE < 50 Normal (applies Glucose, UA [facility] mg/dl to non-numeric Health results) System Protein NEGATIVE < 30 Normal (applies Protein [facility] [Mass/volume] mg/dl to non-numeric Health in Serum or results) System Plasma Bilirubin NEGATIVE Negative Normal (applies Bilirubin [facility] Urine Sm to Lg to non-numeric Urine Health results) System Urobilinogen 0.2 mg/dL 0.2 - 1.0 Normal (applies Urobilinogen [facility] [Mass/volume] mg/dL to non-numeric UA Health in Urine results) System Ketones NEGATIVE Negative Normal (applies Ketones UA [facility] [Mass/volume] mg/dL to non-numeric Health in Urine results) System Nitrate+Nitrit NEGATIVE Negative Normal (applies Nitrite [facility] Neg/Pos to non-numeric Health [Mass/volume] results) System in Unspecified specimen Leukocyte TRACE Negative Abnormal Leukocyte [facility] esterase Tr to Lg (applies to Esterase Health [Units/volume] non-numeric Concentration System in Urine results) Leukocytes 10 {/HPF} 0 - 2 Normal (applies White Blood [facility] [#/volume] in /HPF to non-numeric Cells Health Unspecified results) System specimen by Automated count Red Blood 2 {/HPF} 0 - 1 Normal (applies Red Blood [facility] Cells /HPF to non-numeric Cells Health results) System Epithelial 5 {/HPF} 0 - 3 Normal (applies Epithelial [facility] cells /HPF to non-numeric Cells Health [Presence] in results) System Unspecified specimen by Wet preparation Bacteria 1+ 0 - 1+ Abnormal Bacteria [facility] [Presence] in /HPF (applies to Health Unspecified non-numeric System specimen results) Urine Blood NEGATIVE Negative Normal (applies Urine Blood [facility] Sm to Lg to non-numeric Health results) System ID Date Data Source [id number] 12/19/2017 10:41:00 AM EDT [facility] Name Value Range Interpretation Description Data Sup porting Code Source(s) Document(s ) Deprecated NO GROWTH Aerobic [facility] Bacteria Culture, Urine Health System identified in Urine by Aerobe culture ID Date Data Source [id number] 05/08/2017 08:29:00 AM EST [facility] Name Value Range Interpretation Description Data Sup porting Code Source(s) Document(s ) Sodium 145 137 - Normal (applies Sodium, Serum [facility] [Moles/volume] in mmol/L 145 to non-numeric Health Serum or Plasma mmol/L results) System Potassium 4.1 3.6 - Normal (applies Potassium, [facility] [Mass/volume] in mmol/L 5.0 to non-numeric Serum Health Serum or Plasma mmol/L results) System Chloride 108 98 - Above high Chloride, [facility] [Moles/volume] in mmol/L 107 normal Serum Health Serum or Plasma mmol/L System Carbon dioxide, 28.0 22.0 - Normal (applies CO2, Serum [facility] total mmol/L 30.0 to non-numeric Health [Moles/volume] in mmol/L results) System Serum or Plasma Total Protein 6.1 6.3 - Below low normal Total Protein [facility] mg/dl 8.2 Health mg/dl System Glucose 86 65 - Normal (applies Glucose, [facility] [Mass/volume] in mg/dL 105 to non-numeric Serum Health Serum or Plasma mg/dL results) System Urea nitrogen 25 7 - 18 Above high Blood Urea [facility] [Mass/volume] in mg/dl mg/dl normal Nitrogen, Health Serum or Plasma Serum System Creatinine 0.90 0.70 - Normal (applies Creatinine, [facility] [Mass/volume] in mg/dl 1.20 to non-numeric Serum Health Serum or Plasma mg/dl results) System Alkaline 78 38 - Normal (applies Alkaline [facility] phosphatase {IU/L} 126 to non-numeric Phosphatase, Health isoenzymes IU/L results) Serum System [Enzymatic activity/volume] in Serum or Plasma by Heat stability Bilirubin direct 0.5 0.2 - Normal (applies Bilirubin, [facility] and total panel mg/dl 1.3 to non-numeric Serum Total Health [Mass/volume] - mg/dl results) System Serum or Plasma Direct Bilirubin 0.2 0.0 - Normal (applies Direct [facility] mg/dl 0.4 to non-numeric Bilirubin Health mg/dl results) System Aspartate 16 5 - 40 Normal (applies Aspartate [facility] aminotransferase {IU/L} IU/L to non-numeric Transaminase, Heal [Enzymatic results) Serum System activity/volume] in Serum or Plasma by With P-5'-P Albumin 4.0 3.9 - Normal (applies Albumin, [facility] [Mass/volume] in {gm/dl} 5.0 to non-numeric Serum Health Serum or Plasma gm/dl results) System I. Phosphorus 3.1 2.5 - Normal (applies I. Phosphorus [facility] mg/dl 4.5 to non-numeric Health mg/dl results) System Alanine 14 7 - 56 Normal (applies Alanine [facility] aminotransferase {IU/L} IU/L to non-numeric Aminotransfer Heal [Enzymatic results) ase, Serum System activity/volume] in Serum or Plasma Calcium 9.5 8.4 - Normal (applies Calcium, [facility] [Mass/volume] in mg/dl 10.2 to non-numeric Total Serum Health Serum or Plasma mg/dl results) System A/G Ratio 1.90 Normal (applies A/G Ratio [facility] to non-numeric Health results) System Urate 5.0 2.5 - Normal (applies Uric Acid, [facility] [Mass/volume] in mg/dl 7.5 to non-numeric Serum Health Serum or Plasma mg/dl results) System Anion gap in Serum 9.00 8.00 - Normal (applies Anion Gap [facility] or Plasma mmol/L 12.00 to non-numeric Health mmol/L results) System Glomerular 62.98 Normal (applies GFR [facility] filtration to non-numeric Health rate/1.73 sq results) System M.predicted [Volume Rate/Area] in Serum or Plasma by Creatinine-based formula (CKD-EPI) eGFR will provide clinicians with a more accurate indicator of renal function then the serum creatinine. The eGFR is automa tically calculated from an empiric formula (endorsed by the [employer] ion) which incorporates age, sex, and race.Clinicians may notice surprisingly low GFR's with serum creatinine valueswithin normal range- particularly in elderly wo men (with low muscle mass).In the hospital setting, the eGFR should add an element of safety in drug dosing, in assessing the risk of IV contrast administration, and in assessing vascular risk.The NKF staging system is as follows:Normal: eGFR >90 with no kidney markersStage 1: eGFR >90 with kidney markers*Stage 2: eGFR 60- 89Stage 3: eGFR 30-59Stage 4: eGFR 15-29Stage 5: eGFR <15 (usually requir ing dialysis)*Markers include: Proteinuria, Hematuria, abnormal imaging-studies, or other blood or urine test abnormalities ID Date Data Source [id number] 05/08/2017 08:29:00 AM EST [facility] Name Value Range Interpretation Description Data Sup porting Code Source(s) Document(s ) Deprecated NO GROWTH Aerobic [facility] Bacteria Culture, Urine Health System identified in Urine by Aerobe culture ID Date Data Source [id number] 05/08/2017 08:29:00 AM EST [facility] Name Value Range Interpretation Description Data Sup porting Code Source(s) Document(s ) Color YELLOW Yellow Normal (applies Color [facility] to non-numeric Health results) System Appearance of CLEAR Clear Normal (applies Urine [facility] Urine to non-numeric Appearance Health results) System Specific 1.020 1.001 - Normal (applies Urine Specific [facility] gravity of 1.035 to non-numeric [facility] Urine results) System pH.. 6.0 4.6 - 8.0 Normal (applies pH.. [facility] {pH_units} pH units to non-numeric Health results) System Glucose, UA NEGATIVE < 50 Normal (applies Glucose, UA [facility] mg/dl to non-numeric Health results) System Protein NEGATIVE < 30 Normal (applies Protein [facility] [Mass/volume] mg/dl to non-numeric Health in Serum or results) System Plasma Bilirubin NEGATIVE Negative Normal (applies Bilirubin [facility] Urine Sm to Lg to non-numeric Urine Health results) System Urobilinogen 0.2 mg/dL 0.2 - 1.0 Normal (applies Urobilinogen [facility] [Mass/volume] mg/dL to non-numeric UA Health in Urine results) System Ketones NEGATIVE Negative Normal (applies Ketones UA [facility] [Mass/volume] mg/dL to non-numeric Health in Urine results) System Nitrate+Nitrit NEGATIVE Negative Normal (applies Nitrite [facility] Neg/Pos to non-numeric Health [Mass/volume] results) System in Unspecified specimen Leukocyte SMALL Negative Abnormal Leukocyte [facility] esterase Tr to Lg (applies to Esterase Health [Units/volume] non-numeric Concentration System in Urine results) Leukocytes 5 {/HPF} 0 - 2 Normal (applies White Blood [facility] [#/volume] in /HPF to non-numeric Cells Health Unspecified results) System specimen by Automated count Red Blood 3 {/HPF} 0 - 1 Normal (applies Red Blood [facility] Cells /HPF to non-numeric Cells Health results) System Transitional 6 {/HPF} 0 /HPF Normal (applies Transitional [facility] Epithelial to non-numeric Epithelial Health results) System Epithelial 8 {/HPF} 0 - 3 Normal (applies Epithelial [facility] cells /HPF to non-numeric Cells Health [Presence] in results) System Unspecified specimen by Wet preparation Urine Blood NEGATIVE Negative Normal (applies Urine Blood [facility] Sm to Lg to non-numeric Health results) System ID Date Data Source [id number] 05/08/2017 08:29:00 AM EST [facility] Name Value Range Interpretation Description Data Sup porting Code Source(s) Document(s ) aPTT in Blood 27.5 20.0 - Normal (applies Activated [facility] by {Second 30.3 to non-numeric Partial Health Coagulation s} Seconds results) Thromboplastin System assay Time ID Date Data Source [id number] 05/08/2017 08:29:00 AM EST [facility] Name Value Range Interpretation Description Data Sup porting Code Source(s) Document(s ) Prothrombin 11.20 9.40 - Normal (applies Prothrombin [facility] time (PT) {seconds 11.30 to non-numeric time (PT) Health } seconds results) System INR in Blood 1.08 0.70 - Normal (applies INR Result [facility] by Coagulation {Ratio} 1.10 to non-numeric Health assay Ratio results) System Normal = 0.7-1.1Therapeutic = 2.0-3.0Mec hanical Heart = 3.0-4.5 ID Date Data Source [id number] 05/08/2017 08:29:00 AM EST [facility] Name Value Range Interpretation Description Data Sup porting Code Source(s) Document(s ) Leukocytes 7.1 4.8 - Normal (applies WBC Count [facility] [#/volume] in {10^3_u 10.8 to non-numeric Health Unspecified L} 10^3 uL results) System specimen by Automated count Erythrocytes 4.21 3.80 - Normal (applies RBC Count [facility] [#/volume] in {10^6_u 5.20 to non-numeric Health Blood by L} 10^6 uL results) System Automated count Hemoglobin 12.0 12.0 - Normal (applies Hemoglobin [facility] [Mass/volume] in {gm/dL} 16.0 to non-numeric Health Blood gm/dL results) System Hematocrit 38.1 % 36.0 - Normal (applies Hematocrit [facility] [Volume 46.0 % to non-numeric Health Fraction] of results) System Blood Erythrocyte mean 90.5 fl 83.0 - Normal (applies MCV [facility] corpuscular 98.0 fl to non-numeric Health volume [Entitic results) System volume] by Automated count Erythrocyte mean 28.5 pg 26.0 - Normal (applies MCH [facility] corpuscular 34.0 pg to non-numeric Health hemoglobin results) System [Entitic mass] by Automated count Erythrocyte mean 31.5 33.0 - Below low normal MCHC [facility] corpuscular {gm/dL} 37.0 Health hemoglobin gm/dL System concentration [Mass/volume] by Automated count Erythrocyte 14.6 % 11.5 - Above high RDW-CV [facility] distribution 14.5 % normal Health width [Entitic System volume] by Automated count Platelets 259 130 - Normal (applies Platelet Count [facility] [#/volume] in {10^3_u 400 to non-numeric Health Plasma by L} 10^3 uL results) System Automated count Platelet mean 10.3 fl 7.4 - Normal (applies MPV [facility] volume [Entitic 10.4 fl to non-numeric Health volume] in Blood results) System by Automated count Monocytes 0.6 0.3 - Normal (applies Monocyte # [facility] [#/volume] in {10^3_u 0.9 to non-numeric Health Blood by Manual L} 10^3 uL results) System count Eosinophils 0.39 0.05 - Above high Eosinophil # [facility] [#/volume] in {10^3_u 0.30 normal Health Blood L} 10^3 uL System Neutrophils 3.8 2.0 - Normal (applies Neutrophil # [facility] [#/volume] in {10^3_u 8.1 to non-numeric Health Body fluid L} 10^3 uL results) System Basophils 0.04 0.00 - Normal (applies Basophil # [facility] [#/volume] in {10^3_u 0.10 to non-numeric Health Blood by L} 10^3 uL results) System Automated count Lymphocyte # 2.3 1.0 - Normal (applies Lymphocyte # [facility] {10^3_u 5.5 to non-numeric Health L} 10^3 uL results) System Neutrophils/100 54.0 % 55.0 - Below low normal Neutrophil % [facility] leukocytes in 75.0 % Health Blood by System Automated count Monocytes/100 7.9 % 6.0 - Normal (applies Monocyte % [facility] leukocytes in 9.0 % to non-numeric Health Blood results) System Eosinophils/100 5.5 % 0.0 - Above high Eosinophil % [facility] leukocytes in 4.0 % normal Health Unspecified System specimen Basophils/100 0.6 % 0.0 - Normal (applies Basophil % [facility] leukocytes in 1.0 % to non-numeric Health Unspecified results) System specimen by Manual count Lymphocytes 31.7 % 21.0 - Normal (applies Lymphocyte % [facility] [#/volume] in 51.0 % to non-numeric Health Blood by results) System Automated count Nucleated 0.0 0.0 - Normal (applies NRBC % [facility] erythrocytes {/100_W 0.0 to non-numeric Health [#/volume] in BC} /100 results) System Body fluid WBC NRBC # 0.00 0.90 - Below low normal NRBC # [facility] {10^3_u 11.20 Health L} 10^3 uL System Immature 4.30 % 0.90 - Normal (applies Immature [facility] Platelet 11.20 % to non-numeric Platelet Health Fraction results) Fraction System Immature 0.3 % 0.0 - Normal (applies Immature [facility] Granulocytes % 0.8 % to non-numeric Granulocytes % Healt h results) System Immature 0.02 0.00 - Normal (applies Immature [facility] Granulocytes # {10^3_u 0.09 to non-numeric Granulocytes # [facility] L} 10^3 uL results) System ID Date Data Source [id number] 02/26/2017 09:20:00 AM EDT [facility] Name Value Range Interpretation Description Data Sup porting Code Source(s) Document(s ) Color YELLOW Yellow Normal (applies Color [facility] to non-numeric Health results) System Appearance of CLEAR Clear Normal (applies Urine [facility] Urine to non-numeric Appearance Health results) System Specific 1.025 1.001 - Normal (applies Urine Specific [facility] gravity of 1.035 to non-numeric [facility] Urine results) System pH.. 6.0 4.6 - 8.0 Normal (applies pH.. [facility] {pH_units} pH units to non-numeric Health results) System Glucose, UA NEGATIVE < 50 Normal (applies Glucose, UA [facility] mg/dl to non-numeric Health results) System Protein NEGATIVE < 30 Normal (applies Protein [facility] [Mass/volume] mg/dl to non-numeric Health in Serum or results) System Plasma Bilirubin NEGATIVE Negative Normal (applies Bilirubin [facility] Urine Sm to Lg to non-numeric Urine Health results) System Urobilinogen 0.2 mg/dL 0.2 - 1.0 Normal (applies Urobilinogen [facility] [Mass/volume] mg/dL to non-numeric UA Health in Urine results) System Ketones NEGATIVE Negative Normal (applies Ketones UA [facility] [Mass/volume] mg/dL to non-numeric Health in Urine results) System Nitrate+Nitrit NEGATIVE Negative Normal (applies Nitrite [facility] Neg/Pos to non-numeric Health [Mass/volume] results) System in Unspecified specimen Leukocyte NEGATIVE Negative Normal (applies Leukocyte [facility] esterase Tr to Lg to non-numeric Esterase Health [Units/volume] results) Concentration System in Urine Leukocytes 3 {/HPF} 0 - 2 Normal (applies White Blood [facility] [#/volume] in /HPF to non-numeric Cells Health Unspecified results) System specimen by Automated count Red Blood 3 {/HPF} 0 - 1 Normal (applies Red Blood [facility] Cells /HPF to non-numeric Cells Health results) System Epithelial 5 {/HPF} 0 - 3 Normal (applies Epithelial [facility] cells /HPF to non-numeric Cells Health [Presence] in results) System Unspecified specimen by Wet preparation Bacteria 1+ 0 - 1+ Abnormal Bacteria [facility] [Presence] in /HPF (applies to Health Unspecified non-numeric System specimen results) Urine Blood NEGATIVE Negative Normal (applies Urine Blood [facility] Sm to Lg to non-numeric Health results) System ID Date Data Source [id number] 02/26/2017 09:20:00 AM EDT [facility] Name Value Range Interpretation Description Data Sup porting Code Source(s) Document(s ) aPTT in Blood 27.0 20.0 - Normal (applies Activated [facility] by {Second 30.3 to non-numeric Partial Health Coagulation s} Seconds results) Thromboplastin System assay Time ID Date Data Source [id number] 02/26/2017 09:20:00 AM EDT [facility] Name Value Range Interpretation Description Data Sup porting Code Source(s) Document(s ) Prothrombin 10.90 9.40 - Normal (applies Prothrombin [facility] time (PT) {seconds 11.30 to non-numeric time (PT) Health } seconds results) System INR in Blood 1.05 0.70 - Normal (applies INR Result [facility] by Coagulation {Ratio} 1.10 to non-numeric Health assay Ratio results) System Normal = 0.7-1.1Therapeutic = 2.0-3.0Mec hanical Heart = 3.0-4.5 ID Date Data Source [id number] 02/26/2017 09:20:00 AM EDT [facility] Name Value Range Interpretation Description Data Sup porting Code Source(s) Document(s ) Leukocytes 6.8 4.8 - Normal (applies WBC Count [facility] [#/volume] in {10^3_u 10.8 to non-numeric Health Unspecified L} 10^3 uL results) System specimen by Automated count Erythrocytes 3.92 3.80 - Normal (applies RBC Count [facility] [#/volume] in {10^6_u 5.20 to non-numeric Health Blood by L} 10^6 uL results) System Automated count Hemoglobin 11.8 12.0 - Below low normal Hemoglobin [facility] [Mass/volume] in {gm/dL} 16.0 Health Blood gm/dL System Hematocrit 35.3 % 36.0 - Below low normal Hematocrit [facility] [Volume 46.0 % Health Fraction] of System Blood Erythrocyte mean 90.1 fl 83.0 - Normal (applies MCV [facility] corpuscular 98.0 fl to non-numeric Health volume [Entitic results) System volume] by Automated count Erythrocyte mean 30.1 pg 26.0 - Normal (applies MCH [facility] corpuscular 34.0 pg to non-numeric Health hemoglobin results) System [Entitic mass] by Automated count Erythrocyte mean 33.4 33.0 - Normal (applies MCHC [facility] corpuscular {gm/dL} 37.0 to non-numeric Health hemoglobin gm/dL results) System concentration [Mass/volume] by Automated count Erythrocyte 14.1 % 11.5 - Normal (applies RDW-CV [facility] distribution 14.5 % to non-numeric Health width [Entitic results) System volume] by Automated count Platelets 284 130 - Normal (applies Platelet Count [facility] [#/volume] in {10^3_u 400 to non-numeric Health Plasma by L} 10^3 uL results) System Automated count Platelet mean 10.2 fl 7.4 - Normal (applies MPV [facility] volume [Entitic 10.4 fl to non-numeric Health volume] in Blood results) System by Automated count Monocytes 0.4 0.3 - Normal (applies Monocyte # [facility] [#/volume] in {10^3_u 0.9 to non-numeric Health Blood by Manual L} 10^3 uL results) System count Eosinophils 0.33 0.05 - Above high Eosinophil # [facility] [#/volume] in {10^3_u 0.30 normal Health Blood L} 10^3 uL System Neutrophils 4.4 2.0 - Normal (applies Neutrophil # [facility] [#/volume] in {10^3_u 8.1 to non-numeric Health Body fluid L} 10^3 uL results) System Basophils 0.06 0.00 - Normal (applies Basophil # [facility] [#/volume] in {10^3_u 0.10 to non-numeric Health Blood by L} 10^3 uL results) System Automated count Lymphocyte # 1.6 1.0 - Normal (applies Lymphocyte # [facility] {10^3_u 5.5 to non-numeric Health L} 10^3 uL results) System Neutrophils/100 64.8 % 55.0 - Normal (applies Neutrophil % [facility] alexis leukocytes in 75.0 % to non-numeric Health Blood by results) System Automated count Monocytes/100 6.1 % 6.0 - Normal (applies Monocyte % [facility] leukocytes in 9.0 % to non-numeric Health Blood results) System Eosinophils/100 4.8 % 0.0 - Above high Eosinophil % [facility] leukocytes in 4.0 % normal Health Unspecified System specimen Basophils/100 0.9 % 0.0 - Normal (applies Basophil % [facility] leukocytes in 1.0 % to non-numeric Health Unspecified results) System specimen by Manual count Lymphocytes 23.0 % 21.0 - Normal (applies Lymphocyte % [facility] [#/volume] in 51.0 % to non-numeric Health Blood by results) System Automated count Immature 0.4 % 0.0 - Normal (applies Immature [facility] Granulocytes % 0.8 % to non-numeric Granulocytes % Healt h results) System Nucleated 0.0 0.0 - Normal (applies NRBC % [facility] erythrocytes {/100_W 0.0 to non-numeric Health [#/volume] in BC} /100 results) System Body fluid WBC Immature 0.03 0.00 - Normal (applies Immature [facility] Granulocytes # {10^3_u 0.09 to non-numeric Granulocytes # Healt h L} 10^3 uL results) System NRBC # 0.00 0.90 - Below low normal NRBC # [facility] {10^3_u 11.20 Health L} 10^3 uL System ID Date Data Source [id number] 02/26/2017 09:20:00 AM EDT [facility] System Name Value Range Interpretation Description Data Sup porting Code Source(s) Document(s ) Sodium 141 137 - Normal (applies Sodium, Serum [facility] [Moles/volume] in mmol/L 145 to non-numeric Health Serum or Plasma mmol/L results) System Potassium 4.1 3.6 - Normal (applies Potassium, [facility] [Mass/volume] in mmol/L 5.0 to non-numeric Serum Health Serum or Plasma mmol/L results) System Chloride 106 98 - Normal (applies Chloride, [facility] [Moles/volume] in mmol/L 107 to non-numeric Serum Health Serum or Plasma mmol/L results) System Carbon dioxide, 26.0 22.0 - Normal (applies CO2, Serum [facility] total mmol/L 30.0 to non-numeric Health [Moles/volume] in mmol/L results) System Serum or Plasma Total Protein 6.0 6.3 - Below low normal Total Protein [facility] alexis mg/dl 8.2 Health mg/dl System Glucose 91 65 - Normal (applies Glucose, [facility] [Mass/volume] in mg/dL 105 to non-numeric Serum Health Serum or Plasma mg/dL results) System Urea nitrogen 19 7 - 18 Above high Blood Urea [facility] [Mass/volume] in mg/dl mg/dl normal Nitrogen, Health Serum or Plasma Serum System Creatinine 0.90 0.70 - Normal (applies Creatinine, [facility] [Mass/volume] in mg/dl 1.20 to non-numeric Serum Health Serum or Plasma mg/dl results) System Alkaline 76 38 - Normal (applies Alkaline [facility] phosphatase {IU/L} 126 to non-numeric Phosphatase, Health isoenzymes IU/L results) Serum System [Enzymatic activity/volume] in Serum or Plasma by Heat stability Bilirubin.total 0.4 0.2 - Normal (applies Bilirubin, [facility] [Mass/volume] in mg/dl 1.3 to non-numeric Serum Total Health Serum or Plasma mg/dl results) System Direct Bilirubin 0.2 0.0 - Normal (applies Direct [facility] mg/dl 0.4 to non-numeric Bilirubin Health mg/dl results) System Aspartate 14 5 - 40 Normal (applies Aspartate [facility] aminotransferase {IU/L} IU/L to non-numeric Transaminase, Heal th [Enzymatic results) Serum System activity/volume] in Serum or Plasma by With P-5'-P Albumin 3.9 3.9 - Normal (applies Albumin, [facility] [Mass/volume] in {gm/dl} 5.0 to non-numeric Serum Health Serum or Plasma gm/dl results) System I. Phosphorus 2.9 2.5 - Normal (applies I. Phosphorus [facility] mg/dl 4.5 to non-numeric Health mg/dl results) System Alanine 16 7 - 56 Normal (applies Alanine [facility] aminotransferase {IU/L} IU/L to non-numeric Aminotransfer Heal th [Enzymatic results) ase, Serum System activity/volume] in Serum or Plasma Calcium 9.5 8.4 - Normal (applies Calcium, [facility] [Mass/volume] in mg/dl 10.2 to non-numeric Total Serum Health Serum or Plasma mg/dl results) System A/G Ratio 1.86 Normal (applies A/G Ratio [facility] to non-numeric Health results) System Urate 5.5 2.5 - Normal (applies Uric Acid, [facility] [Mass/volume] in mg/dl 7.5 to non-numeric Serum Health Serum or Plasma mg/dl results) System Anion gap in Serum 9.00 8.00 - Normal (applies Anion Gap [facility] alexis or Plasma mmol/L 12.00 to non-numeric Health mmol/L results) System Glomerular 63.02 Normal (applies GFR [facility] filtration to non-numeric Health rate/1.73 sq results) System M.predicted [Volume Rate/Area] in Serum or Plasma by Creatinine-based formula (CKD-EPI) eGFR will provide clinicians with a more accurate indicator of renal function then the serum creatinine. The eGFR is automa tically calculated from an empiric formula (endorsed by the National Kidney [employer]at ion) which incorporates age, sex, and race.Clinicians may notice surprisingly low GFR's with serum creatinine valueswithin normal range- particularly in elderly wo men (with low muscle mass).In the hospital setting, the eGFR should add an element of safety in drug dosing, in assessing the risk of IV contrast administration, and in assessing vascular risk.The NKF staging system is as follows:Normal: eGFR >90 with no kidney markersStage 1: eGFR >90 with kidney markers*Stage 2: eGFR 60- 89Stage 3: eGFR 30-59Stage 4: eGFR 15-29Stage 5: eGFR <15 (usually requir ing dialysis)*Markers include: Proteinuria, Hematuria, abnormal imaging-studies, or other blood or urine test abnormalities ID Date Data Source [id number] 01/19/2017 09:01:00 AM EDT [facility] System Name Value Range Interpretation Description Data Source(s ) Supporting Code Document(s ) T3 Free 1.79 1.45 - Normal (applies to T3 Free [facility] ng/ml 3.48 non-numeric Health System ng/ml results) ID Date Data Source [id number] 01/19/2017 09:01:00 AM EDT [facility] Name Value Range Interpretation Description Data Sup porting Code Source(s) Document(s ) Thyroglobulin < 1 < OR = Normal (applies Thyroglobulin [facility] Antibody. 1 IU/mL to non-numeric Antibody. Health results) System Test Performed at:[employer] [facility] [address] Brown M.D. Thyroid Peroxidase < 1 <9 IU/mL Normal (applies to Thyroid [facility] Antibody non-numeric Peroxidase System results) Antibody ID Date Data Source [id number] 01/19/2017 09:01:00 AM EDT [facility] System Name Value Range Interpretation Description Data Source(s ) Supporting Code Document(s ) T4 Free 0.83 0.71 - Normal (applies to T4 Free [facility] ng/ml 1.85 non-numeric Health System ng/ml results) ID Date Data Source [id number] 01/19/2017 09:01:00 AM EDT [facility] System Name Value Range Interpretation Description Data Sup porting Code Source(s) Document(s ) Thyrotropin 6.379 0.380 - Above high normal Thyroid [facility] [Mass/volume] {mIU/mL} 6.150 Stimulating [facility] in Serum or mIU/mL Hormone, System Plasma Serum ID Date Data Source [id number] 01/09/2017 06:45:00 AM EDT [facility] System Name Value Range Interpretation Description Data Sup porting Code Source(s) Document(s ) Troponin I 0.00 0.00 - Normal (applies Troponin I [facility] Quantitative - ng/mL 0.04 to non-numeric Quantitative - Healt h [facility] Only ng/mL results) [facility] Only System ID Date Data Source [id number] 01/09/2017 06:00:00 AM EDT [facility] Name Value Range Interpretation Description Data Sup porting Code Source(s) Document(s ) Thyrotropin 6.423 0.380 - Above high normal Thyroid [facility] [Mass/volume] {mIU/mL} 6.150 Stimulating [facility] in Serum or mIU/mL Hormone, System Plasma Serum ID Date Data Source [id number] 01/08/2017 07:30:00 AM EDT [facility] Name Value Range Interpretation Description Data Sup porting Code Source(s) Document(s ) Leukocytes 7.1 4.8 - Normal (applies WBC Count [facility] [#/volume] in {10^3_u 10.8 to non-numeric Health Unspecified L} 10^3 uL results) System specimen by Automated count Erythrocytes 4.77 3.80 - Normal (applies RBC Count [facility] [#/volume] in {10^6_u 5.20 to non-numeric Health Blood by L} 10^6 uL results) System Automated count Hemoglobin 13.7 12.0 - Normal (applies Hemoglobin [facility] [Mass/volume] in {gm/dL} 16.0 to non-numeric Health Blood gm/dL results) System Hematocrit 41.5 % 36.0 - Normal (applies Hematocrit [facility] [Volume 46.0 % to non-numeric Health Fraction] of results) System Blood Erythrocyte mean 87.0 fl 83.0 - Normal (applies MCV [facility] corpuscular 98.0 fl to non-numeric Health volume [Entitic results) System volume] by Automated count Erythrocyte mean 28.7 pg 26.0 - Normal (applies MCH [facility] corpuscular 34.0 pg to non-numeric Health hemoglobin results) System [Entitic mass] by Automated count Erythrocyte mean 33.0 33.0 - Normal (applies MCHC [facility] corpuscular {gm/dL} 37.0 to non-numeric Health hemoglobin gm/dL results) System concentration [Mass/volume] by Automated count Erythrocyte 14.1 % 11.5 - Normal (applies RDW-CV [facility] distribution 14.5 % to non-numeric Health width [Entitic results) System volume] by Automated count Platelets 219 130 - Normal (applies Platelet Count [facility] [#/volume] in {10^3_u 400 to non-numeric Health Plasma by L} 10^3 uL results) System Automated count Platelet mean 10.9 fl 7.4 - Above high MPV [facility] volume [Entitic 10.4 fl normal Health volume] in Blood System by Automated count Monocytes 0.7 0.3 - Normal (applies Monocyte # [facility] [#/volume] in {10^3_u 0.9 to non-numeric Health Blood by Manual L} 10^3 uL results) System count Eosinophils 0.23 0.05 - Normal (applies Eosinophil # [facility] [#/volume] in {10^3_u 0.30 to non-numeric Health Blood L} 10^3 uL results) System Neutrophils 4.1 2.0 - Normal (applies Neutrophil # [facility] [#/volume] in {10^3_u 8.1 to non-numeric Health Body fluid L} 10^3 uL results) System Basophils 0.05 0.00 - Normal (applies Basophil # [facility] [#/volume] in {10^3_u 0.10 to non-numeric Health Blood by L} 10^3 uL results) System Automated count Lymphocyte # 2.0 1.0 - Normal (applies Lymphocyte # [facility] {10^3_u 5.5 to non-numeric Health L} 10^3 uL results) System Neutrophils/100 58.4 % 55.0 - Normal (applies Neutrophil % [facility] alexis leukocytes in 75.0 % to non-numeric Health Blood by results) System Automated count Monocytes/100 9.6 % 6.0 - Above high Monocyte % [facility] leukocytes in 9.0 % normal Health Blood System Eosinophils/100 3.2 % 0.0 - Normal (applies Eosinophil % [facility] a[facility] leukocytes in 4.0 % to non-numeric Health Unspecified results) System specimen Basophils/100 0.7 % 0.0 - Normal (applies Basophil % [facility] leukocytes in 1.0 % to non-numeric Health Unspecified results) System specimen by Manual count Lymphocytes 27.5 % 21.0 - Normal (applies Lymphocyte % [facility] [#/volume] in 51.0 % to non-numeric Health Blood by results) System Automated count Immature 4.20 % 0.90 - Normal (applies Immature [facility] Platelet 11.20 % to non-numeric Platelet Health Fraction results) Fraction System Immature 0.6 % 0.0 - Normal (applies Immature [facility] Granulocytes % 0.8 % to non-numeric Granulocytes % Healt h results) System Nucleated 0.0 0.0 - Normal (applies NRBC % [facility] erythrocytes {/100_W 0.0 to non-numeric Health [#/volume] in BC} /100 results) System Body fluid WBC Immature 0.04 0.00 - Normal (applies Immature [facility] Granulocytes # {10^3_u 0.09 to non-numeric Granulocytes # Healt h L} 10^3 uL results) System NRBC # 0.00 0.90 - Below low normal NRBC # [facility] {10^3_u 11.20 Health L} 10^3 uL System ID Date Data Source [id number] 01/08/2017 07:30:00 AM EDT [facility] Name Value Range Interpretation Description Data Sup porting Code Source(s) Document(s ) B-Type 88.4 0.0 - Normal (applies B-Type [facility] Nat[facility]etic pg/mL 101.0 to non-numeric Natriuetic Health Peptide - MV pg/mL results) Peptide - [facility] System Only Only ID Date Data Source [id number] 01/08/2017 07:30:00 AM EDT [facility] Name Value Range Interpretation Description Data Sup porting Code Source(s) Document(s ) Sodium 144 137 - Normal (applies Sodium, Serum [facility] [Moles/volume] in mmol/L 145 to non-numeric Health Serum or Plasma mmol/L results) System Potassium 4.4 3.6 - Normal (applies Potassium, [facility] [Mass/volume] in mmol/L 5.0 to non-numeric Serum Health Serum or Plasma mmol/L results) System Chloride 109 98 - Above high Chloride, [facility] [Moles/volume] in mmol/L 107 normal Serum Health Serum or Plasma mmol/L System Carbon dioxide, 23.0 22.0 - Normal (applies CO2, Serum [facility] total mmol/L 30.0 to non-numeric Health [Moles/volume] in mmol/L results) System Serum or Plasma Total Protein 6.5 6.3 - Normal (applies Total Protein [facility] mg/dl 8.2 to non-numeric Health mg/dl results) System Glucose 95 65 - Normal (applies Glucose, [facility] [Mass/volume] in mg/dL 105 to non-numeric Serum Health Serum or Plasma mg/dL results) System Urea nitrogen 17 7 - 18 Normal (applies Blood Urea [facility] [Mass/volume] in mg/dl mg/dl to non-numeric Nitrogen, Health Serum or Plasma results) Serum System Creatinine 0.90 0.70 - Normal (applies Creatinine, [facility] [Mass/volume] in mg/dl 1.20 to non-numeric Serum Health Serum or Plasma mg/dl results) System Alkaline 86 38 - Normal (applies Alkaline [facility] phosphatase {IU/L} 126 to non-numeric Phosphatase, [facility] isoenzymes IU/L results) Serum System [Enzymatic activity/volume] in Serum or Plasma by Heat stability Bilirubin.total 0.6 0.2 - Normal (applies Bilirubin, [facility] [Mass/volume] in mg/dl 1.3 to non-numeric Serum Total Health Serum or Plasma mg/dl results) System Direct Bilirubin 0.2 0.0 - Normal (applies Direct [facility] mg/dl 0.4 to non-numeric Bilirubin Health mg/dl results) System Aspartate 26 5 - 40 Normal (applies Aspartate [facility] aminotransferase {IU/L} IU/L to non-numeric Transaminase, Heal [Enzymatic results) Serum System activity/volume] in Serum or Plasma by With P-5'-P Albumin 4.0 3.9 - Normal (applies Albumin, [facility] [Mass/volume] in {gm/dl} 5.0 to non-numeric Serum Health Serum or Plasma gm/dl results) System I. Phosphorus 2.5 2.5 - Normal (applies I. Phosphorus [facility] mg/dl 4.5 to non-numeric Health mg/dl results) System Alanine 27 7 - 56 Normal (applies Alanine [facility] aminotransferase {IU/L} IU/L to non-numeric Aminotransfer Heal th [Enzymatic results) ase, Serum System activity/volume] in Serum or Plasma Calcium 9.8 8.4 - Normal (applies Calcium, [facility] [Mass/volume] in mg/dl 10.2 to non-numeric Total Serum Health Serum or Plasma mg/dl results) System A/G Ratio 1.60 Normal (applies A/G Ratio [facility] to non-numeric Health results) System Urate 5.7 2.5 - Normal (applies Uric Acid, [facility] [Mass/volume] in mg/dl 7.5 to non-numeric Serum Health Serum or Plasma mg/dl results) System Anion gap in Serum 12.00 8.00 - Normal (applies Anion Gap [facility] alexis or Plasma mmol/L 12.00 to non-numeric Health mmol/L results) System Glomerular 63.05 Normal (applies GFR [facility] filtration to non-numeric Health rate/1.73 sq results) System M.predicted [Volume Rate/Area] in Serum or Plasma by Creatinine-based formula (CKD-EPI) eGFR will provide clinicians with a more accurate indicator of renal function then the serum creatinine. The eGFR is automa tically calculated from an empiric formula (endorsed by the National Kidney [employer] ion) which incorporates age, sex, and race.Clinicians may notice surprisingly low GFR's with serum creatinine valueswithin normal range- particularly in elderly wo men (with low muscle mass).In the hospital setting, the eGFR should add an element of safety in drug dosing, in assessing the risk of IV contrast administration, and in assessing vascular risk.The NKF staging system is as follows:Normal: eGFR >90 with no kidney markersStage 1: eGFR >90 with kidney markers*Stage 2: eGFR 60- 89Stage 3: eGFR 30-59Stage 4: eGFR 15-29Stage 5: eGFR <15 (usually requir ing dialysis)*Markers include: Proteinuria, Hematuria, abnormal imaging-studies, or other blood or urine test abnormalities ID Date Data Source [id number] 01/08/2017 07:30:00 AM EDT [facility] Name Value Range Interpretation Description Data Sup porting Code Source(s) Document(s ) Troponin I 0.00 0.00 - Normal (applies Troponin I [facility] Quantitative - ng/mL 0.04 to non-numeric Quantitative - Healt h [facility] Only ng/mL results) [facility] Only System ID Date Data Source [id number] 06/01/2016 08:42:00 AM EST [facility] Name Value Range Interpretation Description Data Sup porting Code Source(s) Document(s ) Deprecated Micro Result Normal (applies Aerobic [facility] Bacteria Final Culture to non-numeric Culture, Health identified Reading results) Urine System in Urine by Note::"MULTIPL Aerobe E BACTERIAL culture MORPHOTYPES PRESENT, POSSIBLE CONTAMINATION, SUGGEST RECOLLECTION IF CLINICALLY INDICATED". ID Date Data Source [id number] 06/01/2016 08:42:00 AM EST [facility] Name Value Range Interpretation Description Data Sup porting Code Source(s) Document(s ) Color YELLOW Yellow Normal (applies Color [facility] to non-numeric Health results) System Appearance of CLEAR Clear Normal (applies Urine [facility] Urine to non-numeric Appearance Health results) System Specific 1.025 1.001 - Normal (applies Urine Specific [facility] gravity of 1.035 to non-numeric [facility] Urine results) System pH.. 5.5 4.6 - 8.0 Normal (applies pH.. [facility] {pH_units} pH units to non-numeric Health results) System Glucose, UA NEGATIVE < 50 Normal (applies Glucose, UA [facility] mg/dl to non-numeric Health results) System Protein NEGATIVE < 30 Normal (applies Protein [facility] [Mass/volume] mg/dl to non-numeric Health in Serum or results) System Plasma Bilirubin NEGATIVE Negative Normal (applies Bilirubin [facility] Urine Sm to Lg to non-numeric Urine Health results) System Urobilinogen 0.2 mg/dL 0.2 - 1.0 Normal (applies Urobilinogen [facility] [Mass/volume] mg/dL to non-numeric UA Health in Urine results) System Ketones NEGATIVE Negative Normal (applies Ketones UA [facility] [Mass/volume] mg/dL to non-numeric Health in Urine results) System Nitrate+Nitrit NEGATIVE Negative Normal (applies Nitrite [facility] Neg/Pos to non-numeric Health [Mass/volume] results) System in Unspecified specimen Leukocyte SMALL Negative Abnormal Leukocyte [facility] esterase Tr to Lg (applies to Esterase Health [Units/volume] non-numeric Concentration System in Urine results) Leukocytes 8 {/HPF} 0 - 2 Normal (applies White Blood [facility] [#/volume] in /HPF to non-numeric Cells Health Unspecified results) System specimen by Automated count Red Blood 2 {/HPF} 0 - 1 Normal (applies Red Blood [facility] Cells /HPF to non-numeric Cells Health results) System Epithelial 8 {/HPF} 0 - 3 Normal (applies Epithelial [facility] cells /HPF to non-numeric Cells Health [Presence] in results) System Unspecified specimen by Wet preparation Bacteria FEW 0 - 1+ Abnormal Bacteria [facility] [Presence] in /HPF (applies to Health Unspecified non-numeric System specimen results) Urine Blood NEGATIVE Negative Normal (applies Urine Blood [facility] Sm to Lg to non-numeric Health results) System ID Date Data Source [id number] 12/06/2015 08:59:00 AM EDT [facility] Name Value Range Interpretation Description Data Sup porting Code Source(s) Document(s ) Microalbu 6 <30 Normal (applies Microalbumin: [facility] min: CR {mcg/mg_C mcg/mg to non-numeric CR Ratio Health System Ratio re} Cre results) UNITS: mcg/mg CreatThe ADA defines abnor malities in albumin excretion asfollows:Category: Result (mcg/mg creatinine)Normal <30Microalbuminuria 30-299Clini heri albuminuria > or = 300The ADA recommends that at least two of three sp ecimenscollected within a 3-6 month period be abnormal before considering a patient to be within a diagnostic category. Microalbumin 0.8 mg/dL SEE NOTE Normal (applies Microalbumin, [facility] [Mass/volume] in mg/dL to non-numeric Urine Health S ystem Urine results) Reference Range: Not Established Creatinine, 147.00 20 - 320 Normal (applies Creatinine, [facility] Urine. to non-numeric Urine. Health System results) Test Performed at:[facility] [place] [id number] Miguel Brown M.D. ID Date Data Source [id number] 12/06/2015 08:59:00 AM EDT [facility] Name Value Range Interpretation Description Data Sup porting Code Source(s) Document(s ) 25 Hydroxy 55 ng/mL 30 - 100 Normal (applies 25 Hydroxy [facility] Vitamin D ng/mL to non-numeric Vitamin D Health System results) 25 Hydroxy 55 ng/mL 0 - Normal (applies 25 Hydroxy D3 [facility] D3 [id number] to non-numeric Health System ng/mL results) 25 Hydroxy < 4 0 - Normal (applies 25 Hydroxy D2 [facility] D2 [id number] to non-numeric Health System ng/mL results) 25-OHD3 indicates both endogenous produc tion andsupplementation. 25-OHD2 is an indicator of exogenoussources such as di et or supplementation. Therapy is based onmeasurement of Total 25-OHD, with leve ls <20 ng/mL indicativeof Vitamin D deficiency, while levels between 20 ng/m L and30 ng/mL suggest insufficiency. Optimal levels are> or = 30 ng/mL.Test Performed at:[facility], [address] Mireya kam M.D. ID Date Data Source [id number] 12/06/2015 08:59:00 AM EDGus yanez System Name Value Range Interpretation Description Data Sup porting Code Source(s) Document(s ) Color YELLOW Yellow Normal (applies Color [facility] to non-numeric Health results) System Appearance of CLEAR Clear Normal (applies Urine [facility] Urine to non-numeric Appearance Health results) System Specific 1.020 Normal (applies Urine Specific [facility] gravity of to non-numeric [facility] Urine results) System pH.. 6.0 4.6 - 8.0 Normal (applies pH.. [facility] {pH_units} pH units to non-numeric Health results) System Glucose, UA NEGATIVE < 50 Normal (applies Glucose, UA [facility] mg/dl to non-numeric Health results) System Protein NEGATIVE < 30 Normal (applies Protein [facility] [Mass/volume] mg/dl to non-numeric Health in Serum or results) System Plasma Bilirubin NEGATIVE Negative Normal (applies Bilirubin [facility] Urine Sm to Lg to non-numeric Urine Health results) System Urobilinogen 0.2 mg/dL Normal (applies Urobilinogen [facility] [Mass/volume] to non-numeric UA Health in Urine results) System Ketones NEGATIVE Negative Normal (applies Ketones UA [facility] [Mass/volume] Tr to Lg to non-numeric Health in Urine results) System Nitrate+Nitrit NEGATIVE Negative Normal (applies Nitrite [facility] Neg/Pos to non-numeric Health [Mass/volume] results) System in Unspecified specimen Leukocyte TRACE Negative Abnormal Leukocyte [facility] esterase Tr to Lg (applies to Esterase Health [Units/volume] non-numeric Concentration System in Urine results) Leukocytes 5-10 0 - 2 Normal (applies White Blood [facility] [#/volume] in /HPF to non-numeric Cells Health Unspecified results) System specimen by Automated count Red Blood 1-3 0 - 1 Normal (applies Red Blood [facility] Cells /HPF to non-numeric Cells Health results) System Transitional 1-2 0 /HPF Normal (applies Transitional [facility] Epithelial to non-numeric Epithelial Health results) System Epithelial 3-7 0 - 3 Normal (applies Epithelial [facility] cells /HPF to non-numeric Cells Health [Presence] in results) System Unspecified specimen by Wet preparation Bacteria moderate 0 - 5 Normal (applies Bacteria [facility] [Presence] in /HPF to non-numeric Health Unspecified results) System specimen Urine Blood NEGATIVE Normal (applies Urine Blood [facility] to non-numeric Health results) System ID Date Data Source [id number] 12/06/2015 08:59:00 AM EDT [facility] Name Value Range Interpretation Description Data Sup porting Code Source(s) Document(s ) Leukocytes 7.2 4.8 - Normal (applies WBC Count [facility] [#/volume] in {10^3_uL 10.8 to non-numeric Health Unspecified } 10^3 uL results) System specimen by Automated count Erythrocytes 3.85 3.80 - Normal (applies RBC Count [facility] [#/volume] in {10^6_uL 5.20 to non-numeric Health Blood by } 10^6 uL results) System Automated count Hemoglobin 12.9 12.0 - Normal (applies Hemoglobin [facility] [Mass/volume] in {gm/dL} 16.0 to non-numeric Health Blood gm/dL results) System Hematocrit 35.0 % 36.0 - Below low normal Hematocrit [facility] [Volume 46.0 % Health Fraction] of System Blood Erythrocyte mean 90.9 fl 80.0 - Normal (applies MCV [facility] corpuscular 100.0 to non-numeric Health volume [Entitic fl results) System volume] by Automated count Erythrocyte mean 33.5 pg 26.0 - Normal (applies MCH [facility] corpuscular 34.0 pg to non-numeric Health hemoglobin results) System [Entitic mass] by Automated count Erythrocyte mean 36.9 33.0 - Normal (applies MCHC [facility] corpuscular {gm/dL} 37.0 to non-numeric Health hemoglobin gm/dL results) System concentration [Mass/volume] by Automated count Erythrocyte 14.9 % 11.5 - Above high RDW-CV [facility] distribution 14.5 % normal Health width [Entitic System volume] by Automated count Platelets 247 130 - Normal (applies Platelet [facility] [#/volume] in {10^3_uL 400 to non-numeric Count Health Plasma by } 10^3 uL results) System Automated count Platelet mean 10.8 fl 7.4 - Above high MPV [facility] volume [Entitic 10.4 fl normal Health volume] in Blood System by Automated count Monocytes 0.6 0.3 - Normal (applies Monocyte # [facility] [#/volume] in {10^3_uL 0.9 to non-numeric Health Blood by Manual } 10^3 uL results) System count Eosinophils 0.35 0.05 - Above high Eosinophil # [facility] [#/volume] in {10^3_uL 0.30 normal Health Blood } 10^3 uL System Neutrophils 4.5 2.0 - Normal (applies Neutrophil # [facility] [#/volume] in {10^3_uL 8.1 to non-numeric Health Body fluid } 10^3 uL results) System Basophils 0.04 0.00 - Normal (applies Basophil # [facility] [#/volume] in {10^3_uL 0.10 to non-numeric Health Blood by } 10^3 uL results) System Automated count Lymphocyte # 1.8 1.0 - Normal (applies Lymphocyte # [facility] {10^3_uL 5.5 to non-numeric Health } 10^3 uL results) System Neutrophils/100 62.0 % 0.0 - Normal (applies Neutrophil % Sean alexis leukocytes in 120.0 % to non-numeric Health Blood by results) System Automated count Monocytes/100 8.2 % 6.0 - Normal (applies Monocyte % [facility] leukocytes in 9.0 % to non-numeric Health Blood results) System Eosinophils/100 4.9 % 1.0 - Above high Eosinophil % [facility] leukocytes in 3.0 % normal Health Unspecified System specimen Basophils/100 0.6 % 0.0 - Normal (applies Basophil % [facility] leukocytes in 1.0 % to non-numeric Health Unspecified results) System specimen by Manual count Lymphocytes 24.3 % 21.0 - Normal (applies Lymphocyte % [facility] [#/volume] in 51.0 % to non-numeric Health Blood by results) System Automated count ID Date Data Source [id number] 12/06/2015 08:59:00 AM EDT [facility] System Name Value Range Interpretation Description Data Sup porting Code Source(s) Document(s ) Thyrotropin 4.111 0.380 - Normal (applies Thyroid [facility] [Mass/volume] {mIU/mL} 6.150 to non-numeric Stimulating Health in Serum or mIU/mL results) Hormone, System Plasma Serum ID Date Data Source [id number] 12/06/2015 08:59:00 AM EDT [facility] Name Value Range Interpretation Description Data Sup porting Code Source(s) Document(s ) Sodium 146 137 - Above high Sodium, Serum [facility] [Moles/volume] in mmol/L 145 normal Health Serum or Plasma mmol/L System Potassium 4.5 3.6 - Normal (applies Potassium, [facility] [Mass/volume] in mmol/L 5.0 to non-numeric Serum Health Serum or Plasma mmol/L results) System Chloride 110 98 - Above high Chloride, [facility] [Moles/volume] in mmol/L 107 normal Serum Health Serum or Plasma mmol/L System Carbon dioxide, 26.0 22.0 - Normal (applies CO2, Serum [facility] total mmol/L 30.0 to non-numeric Health [Moles/volume] in mmol/L results) System Serum or Plasma Total Protein 5.9 6.3 - Below low normal Total Protein [facility] alexis mg/dl 8.2 Health mg/dl System Glucose 94 65 - Normal (applies Glucose, [facility] [Mass/volume] in mg/dL 105 to non-numeric Serum Health Serum or Plasma mg/dL results) System Urea nitrogen 25 7 - 18 Above high Blood Urea [facility] [Mass/volume] in mg/dl mg/dl normal Nitrogen, Health Serum or Plasma Serum System Creatinine 0.82 0.70 - Normal (applies Creatinine, [facility] [Mass/volume] in mg/dl 1.20 to non-numeric Serum Health Serum or Plasma mg/dl results) System Alkaline 84 38 - Normal (applies Alkaline [facility] phosphatase {IU/L} 126 to non-numeric Phosphatase, Health isoenzymes IU/L results) Serum System [Enzymatic activity/volume] in Serum or Plasma by Heat stability Bilirubin.total 0.6 0.2 - Normal (applies Bilirubin, [facility] [Mass/volume] in mg/dl 1.3 to non-numeric Serum Total Health Serum or Plasma mg/dl results) System Direct Bilirubin 0.2 0.0 - Normal (applies Direct [facility] mg/dl 0.4 to non-numeric Bilirubin Health mg/dl results) System Aspartate 24 5 - 40 Normal (applies Aspartate [facility] aminotransferase {IU/L} IU/L to non-numeric Transaminase, Heal th [Enzymatic results) Serum System activity/volume] in Serum or Plasma by With P-5'-P Albumin 4.0 3.9 - Normal (applies Albumin, [facility] [Mass/volume] in {gm/dl} 5.0 to non-numeric Serum Health Serum or Plasma gm/dl results) System I. Phosphorus 3.2 2.5 - Normal (applies I. Phosphorus [facility] mg/dl 4.5 to non-numeric Health mg/dl results) System Alanine 25 7 - 56 Normal (applies Alanine [facility] aminotransferase {IU/L} IU/L to non-numeric Aminotransfer Heal th [Enzymatic results) ase, Serum System activity/volume] in Serum or Plasma Calcium 9.5 8.4 - Normal (applies Calcium, [facility] [Mass/volume] in mg/dl 10.2 to non-numeric Total Serum Health Serum or Plasma mg/dl results) System A/G Ratio 2.11 Normal (applies A/G Ratio [facility] to non-numeric Health results) System Urate 6.5 2.5 - Normal (applies Uric Acid, [facility] [Mass/volume] in mg/dl 7.5 to non-numeric Serum Health Serum or Plasma mg/dl results) System Anion gap in Serum 10.00 8.00 - Normal (applies Anion Gap [facility] alexis or Plasma mmol/L 12.00 to non-numeric Health mmol/L results) System Glomerular 70.45 Normal (applies GFR [facility] filtration to non-numeric Health rate/1.73 sq results) System M.predicted [Volume Rate/Area] in Serum or Plasma by Creatinine-based formula (CKD-EPI) eGFR will provide clinicians with a more accurate indicator of renal function then the serum creatinine. The eGFR is automa tically calculated from an empiric formula (endorsed by the [employer] ion) which incorporates age, sex, and race.Clinicians may notice surprisingly low GFR's with serum creatinine valueswithin normal range- particularly in elderly wo men (with low muscle mass).In the hospital setting, the eGFR should add an element of safety in drug dosing, in assessing the risk of IV contrast administration, and in assessing vascular risk.The NKF staging system is as follows:Normal: eGFR >90 with no kidney markersStage 1: eGFR >90 with kidney markers*Stage 2: eGFR 60- 89Stage 3: eGFR 30-59Stage 4: eGFR 15-29Stage 5: eGFR <15 (usually requir ing dialysis)*Markers include: Proteinuria, Hematuria, abnormal imaging-studies, or other blood or urine test abnormalities ID Date Data Source [id number] 12/06/2015 08:59:00 AM EDT [facility] System Name Value Range Interpretation Description Data Sup porting Code Source(s) Document(s ) Triglyceride 145 35 - 135 Above high Triglycerides [facility] [Mass/volume] mg/dl mg/dl normal , Serum Health in Serum or System Plasma Optimal = < 100 mg/dLBoderline High = 15 0 - 199 mg/dLHigh = 200 - 499 mg/dLVery High = > 500 mg/dL Cholesterol 255 mg/dl *.* mg/dl Above high Cholesterol, [facility] [Mass/volume] in normal Serum Health System Serum or Plasma <200 mg/dL = [id number] - 239 md/dL = Borderline>240 mg/dL = High Risk Cholesterol in HDL 50.0 mg/dL 32.0 - Normal (applies HDL Choleste rol, [facility] [Mass/volume] in 75.0 mg/dL to non-numeric Serum Health System Serum or Plasma results) Cholesterol in LDL 176 mg/dL Normal (applies Low Density [facility] [Mass/volume] in to non-numeric Lipoprotein, Healt h System Serum or Plasma results) Calculated OPTIMAL: LESS THAN 100 mg/dLNEAR OPTIMAL : 100 - 129 mg/dLBODERLINE HIGH: 130 - 150 mg/dL Cholesterol in VLDL 29 Normal (applies to VLDL, Serum [facility] [Mass/volume] in non-numeric System Serum or Plasma results) CHD Risk 5.10 2.40 - Normal (applies to CHD Risk [facility] 5.30 non-numeric System results) ID Date Data Source [id number] 12/06/2015 08:59:00 AM EDT [facility] Name Value Range Interpretation Description Data Sup porting Code Source(s) Document(s ) Creatine 88 30 - 135 Normal (applies Creatine [facility] kinase.MB {IU/L} IU/L to non-numeric Kinase, Serum Health Syst em [Mass/volum results) e] in Serum or Plasma ID Date Data Source [id number] 05/03/2015 11:45:00 AM EST [facility] Name Value Range Interpretation Description Data Source(s ) Supporting Code Document(s ) T3 Free 2.59 1.45 - Normal (applies to T3 Free [facility] ng/ml 3.48 non-numeric Health System ng/ml results) ID Date Data Source [id number] 05/03/2015 11:45:00 AM EST [facility] System Name Value Range Interpretation Description Data Sup porting Code Source(s) Document(s ) Thyroglobulin < 1 < OR = Normal (applies Thyroglobulin [facility] Antibody. 1 IU/mL to non-numeric Antibody. Health results) System Test Performed at: [facility] , [place] [address] Luis Miguel Brown M.D. Thyroid Peroxidase < 1 <9 IU/mL Normal (applies to Thyroid [facility] Antibody non-numeric Peroxidase System results) Antibody ID Date Data Source [id number] 05/03/2015 11:45:00 AM EST [facility] System Name Value Range Interpretation Description Data Source(s ) Supporting Code Document(s ) T4 Free 0.85 0.71 - Normal (applies to T4 Free [facility] ng/ml 1.85 non-numeric Health System ng/ml results) ID Date Data Source [id number] 01/11/2015 07:50:00 AM EDT [facility] Name Value Range Interpretation Description Data Sup porting Code Source(s) Document(s ) Deprecated Micro Result Normal (applies Aerobic [facility] Bacteria Final Culture to non-numeric Culture, Health identified Reading results) Urine System in Urine by Note::"MULTIPL Aerobe E BACTERIAL culture MORPHOTYPES PRESENT, POSSIBLE CONTAMINATION, SUGGEST RECOLLECTION IF CLINICALLY INDICATED". ID Date Data Source [id number] 01/11/2015 07:50:00 AM EDT [facility] System Name Value Range Interpretation Description Data Sup porting Code Source(s) Document(s ) 25 Hydroxy 53 ng/mL 30 - 100 Normal (applies 25 Hydroxy [facility] Vitamin D ng/mL to non-numeric Vitamin D Health System results) 25 Hydroxy 53 ng/mL 0 - Normal (applies 25 Hydroxy D3 [facility] D3 [id number] to non-numeric Health System ng/mL results) 25 Hydroxy < 4 0 - Normal (applies 25 Hydroxy D2 [facility] D2 [id number] to non-numeric Health System ng/mL results) 25-OHD3 indicates both endogenous produc tion and supplementation. 25- OHD2 is an indicator of exogenous source s such as diet or supplementation. Therapy is based on measurement of Total 25 -OHD, with levels <20 ng/mL indicative of Vitamin D deficiency, while levels b etween 20 ng/mL and 30 ng/mL suggest insufficiency. Optimal levels are > or = 30 ng/mL. Test Performed at: [facility], [place] [address] Luis Miguel Brown M.D. ID Date Data Source [id number] 01/11/2015 07:50:00 AM EDT [facility] System Name Value Range Interpretation Description Data Sup porting Code Source(s) Document(s ) Color YELLOW Yellow Normal (applies Color [facility] to non-numeric Health results) System Appearance of CLEAR Clear Normal (applies Urine [facility] Urine to non-numeric Appearance Health results) System Specific 1.025 Normal (applies Urine Specific [facility] gravity of to non-numeric [facility] Urine results) System pH.. 5.5 4.6 - 8.0 Normal (applies pH.. [facility] {pH_units} pH units to non-numeric Health results) System Glucose, UA NEGATIVE < 50 Normal (applies Glucose, UA [facility] mg/dl to non-numeric Health results) System Protein NEGATIVE < 30 Normal (applies Protein [facility] [Mass/volume] mg/dl to non-numeric Health in Serum or results) System Plasma Bilirubin NEGATIVE Negative Normal (applies Bilirubin [facility] Urine Sm to Lg to non-numeric Urine Health results) System Urobilinogen 0.2 mg/dL Normal (applies Urobilinogen [facility] [Mass/volume] to non-numeric UA Health in Urine results) System Ketones NEGATIVE Negative Normal (applies Ketones UA [facility] [Mass/volume] Tr to Lg to non-numeric Health in Urine results) System Nitrate+Nitrit NEGATIVE Negative Normal (applies Nitrite [facility] Neg/Pos to non-numeric Health [Mass/volume] results) System in Unspecified specimen Leukocyte NEGATIVE Negative Normal (applies Leukocyte [facility] esterase Tr to Lg to non-numeric Esterase Health [Units/volume] results) Concentration System in Urine Urine Blood NEGATIVE Normal (applies Urine Blood [facility] to non-numeric Health results) System ID Date Data Source [id number] 01/11/2015 07:50:00 AM EDT [facility] Name Value Range Interpretation Description Data Sup porting Code Source(s) Document(s ) Leukocytes 8.1 4.8 - Normal (applies WBC Count [facility] [#/volume] in {10^3_uL 10.8 to non-numeric Health Unspecified } 10^3 uL results) System specimen by Automated count Erythrocytes 3.95 3.80 - Normal (applies RBC Count [facility] [#/volume] in {10^6_uL 5.20 to non-numeric Health Blood by } 10^6 uL results) System Automated count Hemoglobin 12.8 12.0 - Normal (applies Hemoglobin [facility] [Mass/volume] in {gm/dL} 16.0 to non-numeric Health Blood gm/dL results) System Hematocrit 35.9 % 36.0 - Below low normal Hematocrit [facility] [Volume 46.0 % Health Fraction] of System Blood Erythrocyte mean 90.9 fl 80.0 - Normal (applies MCV [facility] corpuscular 100.0 to non-numeric Health volume [Entitic fl results) System volume] by Automated count Erythrocyte mean 32.4 pg 26.0 - Normal (applies MCH [facility] corpuscular 34.0 pg to non-numeric Health hemoglobin results) System [Entitic mass] by Automated count Erythrocyte mean 35.7 33.0 - Normal (applies MCHC [facility] corpuscular {gm/dL} 37.0 to non-numeric Health hemoglobin gm/dL results) System concentration [Mass/volume] by Automated count Erythrocyte 14.6 % 11.5 - Above high RDW-CV [facility] distribution 14.5 % normal Health width [Entitic System volume] by Automated count Platelets 244 130 - Normal (applies Platelet [facility] [#/volume] in {10^3_uL 400 to non-numeric Count Health Plasma by } 10^3 uL results) System Automated count Platelet mean 10.6 fl 7.4 - Above high MPV [facility] volume [Entitic 10.4 fl normal Health volume] in Blood System by Automated count Monocytes 0.5 0.3 - Normal (applies Monocyte # [facility] [#/volume] in {10^3_uL 0.9 to non-numeric Health Blood by Manual } 10^3 uL results) System count Eosinophils 0.27 0.05 - Normal (applies Eosinophil # [facility] [#/volume] in {10^3_uL 0.30 to non-numeric Health Blood } 10^3 uL results) System Neutrophils 5.4 2.0 - Normal (applies Neutrophil # [facility] [#/volume] in {10^3_uL 8.1 to non-numeric Health Body fluid } 10^3 uL results) System Basophils 0.02 0.00 - Normal (applies Basophil # [facility] [#/volume] in {10^3_uL 0.10 to non-numeric Health Blood by } 10^3 uL results) System Automated count Lymphocyte # 1.8 1.0 - Normal (applies Lymphocyte # [facility] {10^3_uL 5.5 to non-numeric Health } 10^3 uL results) System Neutrophils/100 67.2 % 0.0 - Normal (applies Neutrophil % [facility] alexis leukocytes in 120.0 % to non-numeric Health Blood by results) System Automated count Monocytes/100 6.7 % 6.0 - Normal (applies Monocyte % [facility] leukocytes in 9.0 % to non-numeric Health Blood results) System Eosinophils/100 3.3 % 1.0 - Above high Eosinophil % [facility] leukocytes in 3.0 % normal Health Unspecified System specimen Basophils/100 0.2 % 0.0 - Normal (applies Basophil % [facility] leukocytes in 1.0 % to non-numeric Health Unspecified results) System specimen by Manual count Lymphocytes 22.6 % 21.0 - Normal (applies Lymphocyte % [facility] [#/volume] in 51.0 % to non-numeric Health Blood by results) System Automated count ID Date Data Source [id number] 01/11/2015 07:50:00 AM EDT [facility] System Name Value Range Interpretation Description Data Sup porting Code Source(s) Document(s ) Thyrotropin 6.036 0.380 - Normal (applies Thyroid [facility] [Mass/volume] {mIU/mL} 6.150 to non-numeric Stimulating Health in Serum or mIU/mL results) Hormone, System Plasma Serum ID Date Data Source [id number] 01/11/2015 07:50:00 AM EDT [facility] System Name Value Range Interpretation Description Data Sup porting Code Source(s) Document(s ) Sodium 146 137 - Above high Sodium, Serum [facility] [Moles/volume] in mmol/L 145 normal Health Serum or Plasma mmol/L System Potassium 4.1 3.6 - Normal (applies Potassium, [facility] [Mass/volume] in mmol/L 5.0 to non-numeric Serum Health Serum or Plasma mmol/L results) System Chloride 111 98 - Above high Chloride, [facility] [Moles/volume] in mmol/L 107 normal Serum Health Serum or Plasma mmol/L System Carbon dioxide, 26.0 22.0 - Normal (applies CO2, Serum [facility] total mmol/L 30.0 to non-numeric Health [Moles/volume] in mmol/L results) System Serum or Plasma Total Protein 6.3 6.3 - Normal (applies Total Protein [facility] mg/dl 8.2 to non-numeric Health mg/dl results) System Glucose 92 65 - Normal (applies Glucose, [facility] [Mass/volume] in mg/dL 105 to non-numeric Serum Health Serum or Plasma mg/dL results) System Urea nitrogen 24 7 - 18 Above high Blood Urea [facility] [Mass/volume] in mg/dl mg/dl normal Nitrogen, Health Serum or Plasma Serum System Creatinine 1.00 0.70 - Normal (applies Creatinine, [facility] [Mass/volume] in mg/dl 1.20 to non-numeric Serum Health Serum or Plasma mg/dl results) System Alkaline 78 38 - Normal (applies Alkaline [facility] phosphatase {IU/L} 126 to non-numeric Phosphatase, Health isoenzymes IU/L results) Serum System [Enzymatic activity/volume] in Serum or Plasma by Heat stability Bilirubin.total 0.5 0.2 - Normal (applies Bilirubin, [facility] [Mass/volume] in mg/dl 1.3 to non-numeric Serum Total Health Serum or Plasma mg/dl results) System Direct Bilirubin 0.1 0.0 - Normal (applies Direct [facility] mg/dl 0.4 to non-numeric Bilirubin Health mg/dl results) System Aspartate 15 5 - 40 Normal (applies Aspartate [facility] aminotransferase {IU/L} IU/L to non-numeric Transaminase, Heal th [Enzymatic results) Serum System activity/volume] in Serum or Plasma by With P-5'-P Albumin 4.2 3.9 - Normal (applies Albumin, [facility] [Mass/volume] in {gm/dl} 5.0 to non-numeric Serum Health Serum or Plasma gm/dl results) System I. Phosphorus 3.5 2.5 - Normal (applies I. Phosphorus [facility] mg/dl 4.5 to non-numeric Health mg/dl results) System Alanine 22 7 - 56 Normal (applies Alanine [facility] aminotransferase {IU/L} IU/L to non-numeric Aminotransfer Heal th [Enzymatic results) ase, Serum System activity/volume] in Serum or Plasma Calcium 9.9 8.4 - Normal (applies Calcium, [facility] [Mass/volume] in mg/dl 10.2 to non-numeric Total Serum Health Serum or Plasma mg/dl results) System A/G Ratio 2.00 Normal (applies A/G Ratio [facility] to non-numeric Health results) System Urate 5.6 2.5 - Normal (applies Uric Acid, [facility] [Mass/volume] in mg/dl 7.5 to non-numeric Serum Health Serum or Plasma mg/dl results) System Anion gap in Serum 9.00 8.00 - Normal (applies Anion Gap [facility] alex[facility] or Plasma mmol/L 12.00 to non-numeric Health mmol/L results) System Glomerular 56.19 Normal (applies GFR [facility] filtration to non-numeric Health rate/1.73 sq results) System M.predicted [Volume Rate/Area] in Serum or Plasma by Creatinine-based formula (CKD-EPI) eGFR will provide clinicians with a more accurate indicator of renal function then the serum creatinine. The eGFR is automa tically calculated from an empiric formula (endorsed by the National Kid[employer] ion) which incorporates age, sex, and race.Clinicians may notice surprisingly low GFR's with serum creatinine valueswithin normal range- particularly in elderly wo men (with low muscle mass).In the hospital setting, the eGFR should add an element of safety in drug dosing, in assessing the risk of IV contrast administration, and in assessing vascular risk.The NKF staging system is as follows:Normal: eGFR >90 with no kidney markersStage 1: eGFR >90 with kidney markers*Stage 2: eGFR 60- 89Stage 3: eGFR 30-59Stage 4: eGFR 15-29Stage 5: eGFR <15 (usually requir ing dialysis)*Markers include: Proteinuria, Hematuria, abnormal imaging-studies, or other blood or urine test abnormalities ID Date Data Source [id number] 01/11/2015 07:50:00 AM EDT [facility] System Name Value Range Interpretation Description Data Sup porting Code Source(s) Document(s ) Triglyceride 150 35 - 135 Above high Triglycerides [facility] [Mass/volume] mg/dl mg/dl normal , Serum Health in Serum or System Plasma Optimal = < 100 mg/dLBoderline High = 15 0 - 199 mg/dLHigh = 200 - 499 mg/dLVery High = > 500 mg/dL Cholesterol 246 mg/dl *.* mg/dl Above high Cholesterol, [facility] [Mass/volume] in normal Serum Health System Serum or Plasma <200 mg/dL = [id number] - 239 md/dL = Borderline>240 mg/dL = High Risk Cholesterol in HDL 47.0 mg/dL 32.0 - Normal (applies HDL Choleste rol, [facility] [Mass/volume] in 75.0 mg/dL to non-numeric Serum Health System Serum or Plasma results) Cholesterol in LDL 169 mg/dL Normal (applies Low Density [facility] [Mass/volume] in to non-numeric Lipoprotein, [facility]alt [facility] System Serum or Plasma results) Calculated OPTIMAL: LESS THAN 100 mg/dLNEAR OPTIMAL : 100 - 129 mg/dLBODERLINE HIGH: 130 - 150 mg/dL Cholesterol in VLDL 30 Normal (applies to VLDL, Serum [facility] [Mass/volume] in non-numeric System Serum or Plasma results) CHD Risk 5.23 2.40 - Normal (applies to CHD Risk [facility] Health 5.30 non-numeric System results) ID Date Data Source [id number] 12/16/2014 10:04:00 AM EDT [facility] Name Value Range Interpretation Description Data Sup porting Code Source(s) Document(s ) Deprecated Micro Result Normal (applies Aerobic [facility] Bacteria to non-numeric Culture, Urine Health identified in results) System Urine by Aerobe culture XXX Escherichia Organism [facility] microorganism coli [facility] serotype System [Identifier] in Isolate by Agglutination Thiells Count > 100,000 Thiells Count [facility] CFU/ML Health System Amikacin <=16 - Amikacin [facility] [Susceptibili Sensitive Health ty] System Ampicillin >16 Resistant - Ampicillin [facility] [Susceptibili Health ty] System Ampicillin+Reyes 16/8 - [facility] lbactam Intermediate Ampicillin/[facility] [Susceptibili actam System ty] Cefazolin <=8 Sensitive - cefazolin [facility] [Susceptibili Health ty] System Aztreonam <=8 Sensitive [facility]] System Cefoxitin <=8 Sensitive - Cefoxitin [facility] [Mass/volume] Health in System Unspecified specimen Ceftriaxone <=8 Sensitive - Ceftriaxone [facility] [Susceptibili Health ty] System Ertapenem <=1 Sensitive - Ertapenem [facility] [Susceptibili Health ty] by System Minimum inhibitory concentration (TK) Ciprofloxacin <=1 Sensitive - [facility] [Susceptibili Ciprofloxacin Health ty] System Gentamicin <=4 Sensitive - Gentamicin [facility] [Susceptibili Health ty] System Nitrofurantoi <=32 - [facility] n Sensitive Nitrofurantoin Health [Mass/volume] System in Serum or Plasma Trimethoprim+ >2/38 - [facility] Sulfamethoxaz Resistant Trimethoprim/Reyes Health ole lfamethoxazole System [Susceptibili ty] Piperacillin+ <=16 - [facility] Tazobactam Sensitive Piperacillin/Ta Health [Susceptibili zobactam System ty] ID Date Data Source [id number] 01/27/2014 09:15:00 AM EDT [facility] Name Value Range Interpretation Description Data Sup porting Code Source(s) Document(s ) Hepatitis B 152 >/=10 Normal (applies Hepatitis B [facility] {mIU/mL} mIU/mL to non-numeric Surface [facility] System Antibody. results) Antibody. Patient has immunity to hepatitis B viru s. Test Performed at: [facility], [place] [address] Sydnie Schmidt M.D. ID Date Data Source [id number] 01/27/2014 09:15:00 AM EDT [facility] Name Value Range Interpretation Code Description Data Toma rce(s) Supporting Document(s ) Microalbum 9 <30 Normal (applies to Microalbumin: [facility] in: CR non-numeric CR Ratio Health System Ratio results) UNITS: mcg/mg Creat The ADA defi kaiden abnormalities in albumin excretion as follows: Category: Result (mcg/mg creatinine) Normal <30 Microalbum inuria 30-299 Clinical albuminuria > or = 300 The A DA recommends that at least two of three specimens collected within a 3-6 month period be abnormal before considering a patient to be within a derrick gnostic category. Microalbumin 1.3 mg/dL SEE NOTE Normal (applies Microalbumin, [facility] [Mass/volume] in mg/dL to non-numeric Urine Health S ystem Urine results) Reference Range: Not Established Creatinine, 142.00 20 - 320 Normal (applies Creatinine, [facility] Urine. mg/dL mg/dL to non-numeric Urine. Health System results) Test Performed at: [facility], [place] [address] Sydnie Schmidt M.D. ID Date Data Source [id number] 01/27/2014 09:15:00 AM EDT [facility] Name Value Range Interpretation Description Data Sup porting Code Source(s) Document(s ) 25 Hydroxy 48 ng/mL 30 - 100 Normal (applies 25 Hydroxy [facility] Vitamin D ng/mL to non-numeric Vitamin D Health results) System 25 Hydroxy 48 ng/mL Normal (applies 25 Hydroxy D3 [facility] D3 to non-numeric Health results) System 25 Hydroxy Less than 4 Normal (applies 25 Hydroxy D2 [facility] D2 25-OHD3 to non-numeric Health indicates results) System both endogenous production and supplementati on. 25-OHD2 is an indicator of exogenous sources such as diet or supplementati on. Therapy is based on measurement of Total 25-OHD, with levels <20 ng/mL indicative of Vitamin D deficiency, while levels between 20 ng/mL and 30 ng/mL suggest insufficiency . Optimal levels are > or = 30 ng/mL. Test Performed at: [facility], [place] [address] Sydnie Schmidt M.D. ID Date Data Source [id number] 01/27/2014 09:15:00 AM EDT [facility] System Name Value Range Interpretation Description Data Sup porting Code Source(s) Document(s ) Color YELLOW Yellow Normal (applies Color [facility] to non-numeric Health results) System Appearance of CLEAR Clear Normal (applies Urine [facility] Urine to non-numeric Appearance Health results) System Specific 1.020 1.001 - Normal (applies Urine Specific [facility] gravity of 1.035 to non-numeric [facility] Urine results) System pH.. 6.0 4.6 - 8.0 Normal (applies pH.. [facility] {pH_units} pH units to non-numeric Health results) System Glucose, UA NEGATIVE < 50 Normal (applies Glucose, UA [facility] mg/dl to non-numeric Health results) System Protein NEGATIVE < 30 Normal (applies Protein [facility] [Mass/volume] mg/dl to non-numeric Health in Serum or results) System Plasma Bilirubin NEGATIVE Negative Normal (applies Bilirubin [facility] Urine Sm to Lg to non-numeric Urine Health results) System Urobilinogen 0.20 mg/dL 0.20 - Normal (applies Urobilinogen [facility] [Mass/volume] 1.00 to non-numeric UA Health in Urine mg/dL results) System Ketones NEGATIVE Negative Normal (applies Ketones UA [facility] [Mass/volume] Tr to Lg to non-numeric Health in Urine results) System Nitrate+Nitrit NEGATIVE Negative Normal (applies Nitrite [facility] Neg/Pos to non-numeric Health [Mass/volume] results) System in Unspecified specimen Leukocyte MODERATE Negative Abnormal Leukocyte [facility] esterase Tr to Lg (applies to Esterase Health [Units/volume] non-numeric Concentration System in Urine results) Leukocytes 10-15 0 - 2 Normal (applies White Blood [facility] [#/volume] in /HPF to non-numeric Cells Health Unspecified results) System specimen by Automated count Red Blood 5-7 0 - 1 Normal (applies Red Blood [facility] Cells /HPF to non-numeric Cells Health results) System Epithelial 0-3 0 - 3 Normal (applies Epithelial [facility] cells /HPF to non-numeric Cells Health [Presence] in results) System Unspecified specimen by Wet preparation Bacteria numerous 0 - 5 Normal (applies Bacteria [facility] [Presence] in /HPF to non-numeric Health Unspecified results) System specimen Urine Blood NEGATIVE Normal (applies Urine Blood [facility] to non-numeric Health results) System ID Date Data Source [id number] 01/27/2014 09:15:00 AM EDT [facility] Name Value Range Interpretation Description Data Sup porting Code Source(s) Document(s ) Leukocytes 7.2 10 4.8 - Normal (applies WBC Count [facility] [#/volume] in 10.8 10 to non-numeric Health Unspecified results) System specimen by Automated count Erythrocytes 4.16 10 3.80 - Normal (applies RBC Count [facility] [#/volume] in 5.20 10 to non-numeric Health Blood by results) System Automated count Hemoglobin 13.1 12.0 - Normal (applies Hemoglobin, [facility] [Mass/volume] in {gm/dL} 16.0 to non-numeric Whole Blood Health Blood gm/dL results) System Hematocrit 37.0 % 36.0 - Normal (applies Hematocrit, [facility] [Volume 46.0 % to non-numeric Whole Blood Health Fraction] of results) System Blood Erythrocyte mean 88.9 fl 80.0 - Normal (applies MCV [facility] corpuscular 100.0 to non-numeric Health volume [Entitic fl results) System volume] by Automated count Erythrocyte mean 31.5 pg 26.0 - Normal (applies MCH [facility] corpuscular 34.0 pg to non-numeric Health hemoglobin results) System [Entitic mass] by Automated count Erythrocyte mean 35.4 33.0 - Normal (applies MCHC [facility] corpuscular {gm/dL} 37.0 to non-numeric Health hemoglobin gm/dL results) System concentration [Mass/volume] by Automated count Erythrocyte 14.4 % 11.5 - Normal (applies RDW-CV [facility] distribution 14.5 % to non-numeric Health width [Entitic results) System volume] by Automated count Platelets 245 10 130 - Normal (applies Platelet [facility] [#/volume] in 400 10 to non-numeric Count Health Plasma by results) System Automated count Platelet mean 10.8 fl 7.4 - Above high MPV [facility] volume [Entitic 10.4 fl normal Health volume] in Blood System by Automated count Monocytes 0.5 10 0.3 - Normal (applies Monocyte [facility] [#/volume] in 0.9 10 to non-numeric Count Health Blood by Manual results) System count Eosinophils 0.2 10 0.1 - Normal (applies Eosinophil [facility] [#/volume] in 0.3 10 to non-numeric Count Blood Health Blood results) System Neutrophils 4.4 10 2.0 - Normal (applies Absolute [facility] [#/volume] in 8.1 10 to non-numeric Neutrophil Health Body fluid results) Count System Basophils 0.1 10 0.0 - Normal (applies Basophil [facility] [#/volume] in 0.1 10 to non-numeric Count Health Blood by results) System Automated count Lymphocyte 2.0 10 1.0 - Normal (applies Lymphocyte [facility] Absolute 5.5 10 to non-numeric Absolute Health results) System Neutrophils/100 61.5 % 0.0 - Normal (applies Neutrophil % Sean alexis leukocytes in 120.0 % to non-numeric Health Blood by results) System Automated count Monocytes/100 7.5 % 6.0 - Normal (applies Monocyte % [facility] leukocytes in 9.0 % to non-numeric Health Blood results) System Eosinophils/100 3.2 % 1.0 - Above high Eosinophil % [facility] leukocytes in 3.0 % normal Health Unspecified System specimen Basophils/100 0.7 % 0.0 - Normal (applies Basophil % [facility] leukocytes in 1.0 % to non-numeric Health Unspecified results) System specimen by Manual count Lymphocytes 27.1 % 21.0 - Normal (applies Lymphocyte % [facility] [#/volume] in 51.0 % to non-numeric Health Blood by results) System Automated count ID Date Data Source [id number] 01/27/2014 09:15:00 AM EDT [facility] Name Value Range Interpretation Description Data Sup porting Code Source(s) Document(s ) Thyrotropin 4.739 0.380 - Normal (applies Thyroid [facility] [Mass/volume] 6.150 to non-numeric Stimulating Health in Serum or results) Hormone, Serum System Plasma ID Date Data Source [id number] 01/27/2014 09:15:00 AM EDT [facility] Name Value Range Interpretation Description Data Sup porting Code Source(s) Document(s ) Hepatitis B Non Normal (applies Hepatitis B [facility] Surface ReactiveReference to non-numeric Surface Health Antigen. Range: Non results) Antigen. System Reactive Test Performed at: [facility] [address], [place] [address] Sydnie Schmidt M.D. Hepatitis B DNR Test Performed Normal (applies Hepatitis B [facility] at: [facility] [employer] [facility] to non-numeric Surface [facility], [facility] results) [place] [address] Sydnie Schmidt M.D. ID Date Data Source [id number] 01/27/2014 09:15:00 AM EDT [facility] System Name Value Range Interpretation Description Data Sup porting Code Source(s) Document(s ) Sodium 143 137 - Normal (applies Sodium, Serum [facility] [Moles/volume] in mmol/L 145 to non-numeric Health Serum or Plasma mmol/L results) System Potassium 4.1 3.6 - Normal (applies Potassium, [facility] [Mass/volume] in mmol/L 5.0 to non-numeric Serum Health Serum or Plasma mmol/L results) System Chloride 109 98 - Above high Chloride, [facility] [Moles/volume] in mmol/L 107 normal Serum Health Serum or Plasma mmol/L System Carbon dioxide, 26.0 22.0 - Normal (applies CO2, Serum [facility] total mmol/L 30.0 to non-numeric Health [Moles/volume] in mmol/L results) System Serum or Plasma Total Protein 6.2 6.3 - Below low normal Total Protein Sean alexis mg/dl 8.2 Health mg/dl System Glucose 93 65 - Normal (applies Glucose, [facility] [Mass/volume] in mg/dL 105 to non-numeric Serum Health Serum or Plasma mg/dL results) System Urea nitrogen 20 7 - 18 Above high Blood Urea [facility] [Mass/volume] in mg/dl mg/dl normal Nitrogen, Health Serum or Plasma Serum System Creatinine 0.90 0.70 - Normal (applies Creatinine, [facility] [Mass/volume] in mg/dl 1.20 to non-numeric Serum Health Serum or Plasma mg/dl results) System Alkaline 80 38 - Normal (applies Alkaline [facility] phosphatase {IU/L} 126 to non-numeric Phosphatase, Health isoenzymes IU/L results) Serum System [Enzymatic activity/volume] in Serum or Plasma by Heat stability Bilirubin.total 0.6 0.2 - Normal (applies Bilirubin, [facility] [Mass/volume] in mg/dl 1.3 to non-numeric Serum Total Health Serum or Plasma mg/dl results) System Aspartate 17 5 - 40 Normal (applies Aspartate [facility] aminotransferase {IU/L} IU/L to non-numeric Transaminase, Heal th [Enzymatic results) Serum System activity/volume] in Serum or Plasma by With P-5'-P Albumin 3.9 3.9 - Normal (applies Albumin, [facility] [Mass/volume] in {gm/dl} 5.0 to non-numeric Serum Health Serum or Plasma gm/dl results) System I. Phosphorus 3.1 2.5 - Normal (applies I. Phosphorus [facility] mg/dl 4.5 to non-numeric Health mg/dl results) System Alanine 25 7 - 56 Normal (applies Alanine [facility] aminotransferase {IU/L} IU/L to non-numeric Aminotransfer Heal th [Enzymatic results) ase, Serum System activity/volume] in Serum or Plasma Calcium 9.7 8.4 - Normal (applies Calcium, [facility] [Mass/volume] in mg/dl 10.2 to non-numeric Total Serum Health Serum or Plasma mg/dl results) System A/G Ratio 1.70 Normal (applies A/G Ratio [facility] to non-numeric Health results) System Urate 5.6 2.5 - Normal (applies Uric Acid, [facility] [Mass/volume] in mg/dl 7.5 to non-numeric Serum Health Serum or Plasma mg/dl results) System Anion gap in Serum 8.00 8.00 - Normal (applies Anion Gap Sean alexis or Plasma mmol/L 12.00 to non-numeric Health mmol/L results) System Glomerular 63.66 Normal (applies GFR [facility] filtration to non-numeric Health rate/1.73 sq results) System M.predicted [Volume Rate/Area] in Serum or Plasma by Creatinine-based formula (CKD-EPI) eGFR will provide clinicians with a more accurate indicator of renal function then the serum creatinine. The eGFR is automa tically calculated from an empiric formula (endorsed by the National [employer] ion) which incorporates age, sex, and race.Clinicians may notice surprisingly low GFR's with serum creatinine valueswithin normal range- particularly in elderly wo men (with low muscle mass).In the hospital setting, the eGFR should add an element of safety in drug dosing, in assessing the risk of IV contrast administration, and in assessing vascular risk.The NKF staging system is as follows:Normal: eGFR >90 with no kidney markersStage 1: eGFR >90 with kidney markers*Stage 2: eGFR 60- 89Stage 3: eGFR 30-59Stage 4: eGFR 15-29Stage 5: eGFR <15 (usually requir ing dialysis)*Markers include: Proteinuria, Hematuria, abnormal imaging-studies, or other blood or urine test abnormalities ID Date Data Source [id number] 01/27/2014 09:15:00 AM YOLANDA yanez System Name Value Range Interpretation Description Data Sup porting Code Source(s) Document(s ) Triglyceride 118 35 - 135 Normal (applies Triglycerides [facility] [Mass/volume] mg/dl mg/dl to non-numeric , Serum Health in Serum or results) System Plasma Optimal = < 100 mg/dLBoderline High = 15 0 - 199 mg/dLHigh = 200 - 499 mg/dLVery High = > 500 mg/dL Cholesterol 233 mg/dl *.* mg/dl Above high Cholesterol, [facility] [Mass/volume] in normal Serum Health System Serum or Plasma <200 mg/dL = [id number] - 239 md/dL = Borderline>240 mg/dL = High Risk Cholesterol in HDL 42.0 mg/dL 32.0 - Normal (applies HDL Choleste rol, [facility] [Mass/volume] in 75.0 mg/dL to non-numeric Serum Health System Serum or Plasma results) Cholesterol in LDL 167.4 Normal (applies Low Density [facility] [Mass/volume] in mg/dL to non-numeric [facility] or Plasma results) Calculated OPTIMAL: LESS THAN 100 mg/dLNEAR OPTIMAL : 100 - 129 mg/dLBODERLINE HIGH: 130 - 150 mg/dL Cholesterol in VLDL 23.6 Normal (applies to VLDL, Serum [facility] [Mass/volume] in non-numeric System Serum or Plasma results) CHD Risk 5.55 2.40 - Above high normal CHD Risk [facility] H ealth 5.30 System ID Date Data Source [id number] 01/27/2014 09:15:00 AM EDT [facility]Slv[facility] System Name Value Range Interpretation Description Data Sup porting Code Source(s) Document(s ) Creatine 66 30 - 135 Normal (applies Creatine [facility] kinase.MB {IU/L} IU/L to non-numeric Kinase, Serum Health Syst em [Mass/volum results) e] in Serum or Plasma ID Date Data Source [id number] 01/06/2014 07:00:00 AM EDT [facility] System Name Value Range Interpretation Description Data Sup porting Code Source(s) Document(s ) Deprecated Micro Result Normal (applies Aerobic [facility] Bacteria to non-numeric Culture, Health identified in results) Urine System Urine by Aerobe culture XXX STAPHYLOCOCCUS Organism [facility] microorganism COAGULASE Health serotype NEGATIVE NOT System [Identifier] SAPROPHYTICUS in Isolate by Agglutination [place] Count > 10,000 - < [place] Count [facility] 50,000 Organism Health Notes : System IDENTIFICATION BY LATEX AGGLUTINATION ID Date Data Source [id number] 08/24/2013 02:06:23 PM EDT [facility] System Name Value Range Interpretation Description Data Sup porting Code Source(s) Document(s ) Color YELLOW YELLOW Normal (applies Color [facility] to non-numeric Health results) System Specific 1.020 Normal (applies Urine [facility] gravity of to non-numeric Specific Health Urine results) [place] System Appearance of CLEAR CLEAR Normal (applies Urine [facility] Urine to non-numeric Appearance Health results) System pH.. 6.0 4.6 - Normal (applies pH.. [facility] {pH_units} 8.0 pH to non-numeric Health units results) System Glucose, UA NEGATIVE Normal (applies Glucose, UA [facility] to non-numeric Health results) System Negative Protein NEGATIVE Normal (applies Protein [facility] [Mass/volume] in to non-numeric Health S ystem Serum or Plasma results) Bilirubin Urine NEGATIVE Normal (applies Bilirubin Urine [facility] to non-numeric Health System results) Urobilinogen 0.20 {eu/dL} 0.20 Normal (applies Urobilinogen UA [facility] [Mass/volume] in - to non-numeric Health S yste Urine 1.00 results) eu/dL Ketones NEGATIVE Normal (applies Ketones UA [facility] [Mass/volume] in to non-numeric Health S yste Urine results) Negative Leukocyte esterase NEGATIVE Normal (applies Leukocyte Grisel ase [facility] [Units/volume] in to non-numeric Concentration a [facility] System Urine results) Negative Nitrate+Nitrite NEGATIVE Normal (applies to Nitrite [facility] [Mass/volume] in non-numeric results) Sy stem Unspecified specimen Negative Leukocytes 2-4 Normal (applies to White Blood Cells [facility] [#/volume] in non-numeric System Unspecified results) specimen by Automated count Epithelial cells 0-2 Normal (applies to Epithelial Anat ls [facility] [Presence] in non-numeric System Unspecified results) specimen by Wet preparation Red Blood Cells 0-2 Normal (applies to Red Blood Cells [facility] non-numeric System results) Bacteria [Presence] moderate Normal (applies [facility] Unspecified non-numeric System specimen results) Urine Blood NEGATIVE Normal (applies to Urine Blood [facility] non-numeric System results) ID Date Data Source [id number] 08/24/2013 02:06:23 PM EDT [facility] System Name Value Range Interpretation Description Data Sup porting Code Source(s) Document(s ) Prothrombin 11.40 9.40 - Normal (applies Prothrombin [facility] time (PT) {seconds 12.00 to non-numeric time (PT) Health } seconds results) System INR in Blood 1.10 0.70 - Normal (applies INR Result [facility] by Coagulation {Ratio} 1.10 to non-numeric Health assay Ratio results) System Normal = 0.7-1.1Therapeutic = 2.0-3.0Mec hanical Heart = 3.0-4.5 ID Date Data Source [id number] 08/24/2013 02:06:23 PM EDT [facility] System Name Value Range Interpretation Description Data Sup porting Code Source(s) Document(s ) Leukocytes 10.1 4.8 - Normal (applies WBC Count [facility] [#/volume] in {10^3_uL 10.8 to non-numeric Health Unspecified } 10^3 uL results) System specimen by Automated count Hemoglobin 13.9 12.0 - Normal (applies Hemoglobin, [facility] [Mass/volume] in {gm/dL} 16.0 to non-numeric Whole Blood Health Blood gm/dL results) System Erythrocytes 4.50 3.80 - Normal (applies RBC Count [facility] [#/volume] in {10^6_uL 5.20 to non-numeric Health Blood by } 10^6 uL results) System Automated count Hematocrit 40.1 % 36.0 - Normal (applies Hematocrit, [facility] [Volume 46.0 % to non-numeric Whole Blood Health Fraction] of results) System Blood Erythrocyte mean 89.1 fl 80.0 - Normal (applies MCV [facility] corpuscular 100.0 to non-numeric Health volume [Entitic fl results) System volume] by Automated count Erythrocyte mean 30.9 pg 26.0 - Normal (applies MCH [facility] corpuscular 34.0 pg to non-numeric Health hemoglobin results) System [Entitic mass] by Automated count Erythrocyte mean 34.7 33.0 - Normal (applies MCHC [facility] corpuscular {gm/dL} 37.0 to non-numeric Health hemoglobin gm/dL results) System concentration [Mass/volume] by Automated count Erythrocyte 14.9 % 11.5 - Above high RDW [facility] distribution 14.5 % normal Health width [Entitic System volume] by Automated count Platelets 249 130 - Normal (applies Platelet [facility] [#/volume] in {10^3_uL 400 to non-numeric Count Health Plasma by } 10^3 uL results) System Automated count Platelet mean 11.0 fl 7.4 - Above high MPV [facility] volume [Entitic 10.4 fl normal Health volume] in Blood System by Automated count Monocytes 0.4 0.3 - Normal (applies Monocyte [facility] [#/volume] in {10^3_uL 0.9 to non-numeric Count Health Blood by Manual } 10^3 uL results) System count Eosinophils 0.0 0.1 - Below low normal Eosinophil [facility] [#/volume] in {10^3_uL 0.3 Count Blood Health Blood } 10^3 uL System Neutrophils 9.3 2.0 - Above high Absolute [facility] [#/volume] in {10^3_uL 8.1 normal Neutrophil Health Body fluid } 10^3 uL Count System Basophils 0.0 0.0 - Normal (applies Basophil [facility] [#/volume] in {10^3_uL 0.1 to non-numeric Count Health Blood by } 10^3 uL results) System Automated count Lymphocyte 0.4 1.0 - Below low normal Lymphocyte [facility] Absolute {10^3_uL 5.5 Absolute Health } 10^3 uL System Neutrophils/100 92.3 % 0.0 - Normal (applies Neutrophil % Sean alexis leukocytes in 120.0 % to non-numeric Health Blood by results) System Automated count Monocytes/100 3.6 % Normal (applies Monocyte % [facility] leukocytes in to non-numeric Health Blood results) System Eosinophils/100 0.4 % Normal (applies Eosinophil % Sean alexis leukocytes in to non-numeric Health Unspecified results) System specimen Basophils/100 0.1 % Normal (applies Basophil % [facility] leukocytes in to non-numeric Health Unspecified results) System specimen by Manual count Lymphocytes 3.6 % Normal (applies Lymphocyte % [facility] [#/volume] in to non-numeric Health Blood by results) System Automated count ID Date Data Source [id number] 08/24/2013 02:06:23 PM EDT [facility] System Name Value Range Interpretation Description Data Sup porting Code Source(s) Document(s ) Sodium 138 137 - Normal (applies Sodium, Serum [facility] [Moles/volum mmol/L 145 to non-numeric Health Syste m e] in Serum mmol/L results) or Plasma Potassium 5.7 3.6 - Above high normal Potassium, [facility] [Mass/volume mmol/L 5.0 Serum [facility] System ] in Serum mmol/L or Plasma hemolysis present Chloride 107 mmol/L 98 - 107 Normal (applies Chloride, [facility] [Moles/volume] in mmol/L to non-numeric Serum Health System Serum or Plasma results) Carbon dioxide, 20.0 22.0 - Below low CO2, Serum [facility] total [Moles/volume] mmol/L 30.0 normal Health Sy stem in Serum or Plasma mmol/L Total Protein 7.3 mg/dl 6.3 - 8.2 Normal (applies Total Protein [facility] mg/dl to non-numeric [facility] System results) Glucose 112 mg/dL 65 - 105 Above high Glucose, Serum [facility] [Mass/volume] in mg/dL normal Health System Serum or Plasma Urea nitrogen 30 mg/dl 7 - 18 Above high Blood Urea [facility] [Mass/volume] in mg/dl normal Nitrogen, Health System Serum or Plasma Serum Creatinine 1.00 mg/dl 0.70 - Normal (applies Creatinine, [facility] [Mass/volume] in 1.20 mg/dl to non-numeric Serum [facility] Serum or Plasma results) Alkaline phosphatase 81 {IU/L} 38 - 126 Normal (applies Alkaline [facility] isoenzymes IU/L to non-numeric Phosphatase, [facility] Syst em [Enzymatic results) Serum activity/volume] in Serum or Plasma by Heat stability Aspartate 52 {IU/L} 5 - 40 Above high Aspartate [facility] aminotransferase IU/L normal Transaminase, Health Sy stem [Enzymatic Serum activity/volume] in Serum or Plasma by With P-5'-P Bilirubin.total 1.3 mg/dl 0.2 - 1.3 Normal (applies Bilirubin, [facility] [Mass/volume] in mg/dl to non-numeric Serum Total [facility] Serum or Plasma results) Albumin 4.0 3.9 - 5.0 Normal (applies Albumin, Serum [facility] [Mass/volume] in {gm/dl} gm/dl to non-numeric [facility] or [facility] results) I. Phosphorus 2.4 mg/dl 2.5 - 4.5 Below low I. Phosphorus [facility] mg/dl normal Health System Alanine 31 {IU/L} 7 - 56 Normal (applies Alanine [facility] aminotransferase IU/L to non-numeric Aminotransfera [facility] [Enzymatic results) se, Serum activity/volume] in Serum or Plasma Calcium 8.9 mg/dl 8.4 - 10.2 Normal (applies Calcium, Total [facility] [Mass/volume] in mg/dl to non-numeric Serum [facility] results) A/G Ratio 1.21 Normal (applies A/G Ratio [facility] to non-numeric Health System results) Urate [Mass/volume] 5.7 mg/dl 2.5 - 7.5 Normal (applies Uric Acid, [facility] in Serum or Plasma mg/dl to non-numeric Serum Health System results) Anion gap in Serum 11.00 8.00 - Normal (applies Anion Gap [facility] alexis or Plasma mmol/L 12.00 to non-numeric Health System mmol/L results) Glomerular 56.45 Normal (applies GFR [facility] filtration rate/1.73 to non-numeric Heal th System sq M.predicted results) [Volume Rate/Area] in Serum or Plasma by Creatinine-based formula (CKD-EPI) eGFR will provide clinicians with a more accurate indicator of renal function then the serum creatinine. The eGFR is automa tically calculated from an empiric formula (endorsed by the [employer] ion) which incorporates age, sex, and race.Clinicians may notice surprisingly low GFR's with serum creatinine valueswithin normal range- particularly in elderly wo men (with low muscle mass).In the hospital setting, the eGFR should add an element of safety in drug dosing, in assessing the risk of IV contrast administration, and in assessing vascular risk.The NKF staging system is as follows:Normal: eGFR >90 with no kidney markersStage 1: eGFR >90 with kidney markers*Stage 2: eGFR 60- 89Stage 3: eGFR 30-59Stage 4: eGFR 15-29Stage 5: eGFR <15 (usually requir ing dialysis)*Markers include: Proteinuria, Hematuria, abnormal imaging-studies, or other blood or urine test abnormalities ID Date Data Source [id number] 08/24/2013 02:06:23 PM EDT [facility] System Name Value Range Interpretation Description Data Sup porting Code Source(s) Document(s ) Lipase 13 U/L 8 - 78 Normal (applies to Lipase, Serum [facility] [Enzymatic U/L non-numeric Health System activity/v results) olume] in Serum or Plasma ID Date Data Source [id number] 08/24/2013 02:06:23 PM [facility] Name Value Range Interpretation Description Data Sup porting Code Source(s) Document(s ) Amylase 35 30 - 110 Normal (applies Amylase, Serum [facility] [Enzymatic {IU/L} IU/L to non-numeric Health System activity/vo results) lume] in Serum or Plasma ID Date Data Source [id number] 11/07/2012 07:58:00 AM EDT [facility] alth System Name Value Range Interpretation Description Data Sup porting Code Source(s) Document(s ) 25 Hydroxy 53 ng/mL Normal (applies 25 Hydroxy D3 [facility] D3 to non-numeric Health results) System 25 Hydroxy 53 ng/mL 30 - 100 Normal (applies 25 Hydroxy [facility] Vitamin D ng/mL to non-numeric Vitamin D Health results) System 25 Hydroxy Less than 4 Normal (applies 25 Hydroxy D2 [facility] D2 25-OHD3 to non-numeric Health indicates results) System both endogenous production and supplementati on. 25-OHD2 is an indicator of exogenous sources such as diet or supplementati on. Therapy is based on measurement of Total 25-OHD, with levels <20 ng/mL indicative of Vitamin D deficiency, while levels between 20 ng/mL and 30 ng/mL suggest insufficiency . Optimal levels are > or = 30 ng/mL. Test Performed at: [employer], [place] [address] Sydnie Schmidt M.D. ID Date Data Source [id number] 11/07/2012 07:58:00 AM EDT [facility]ane[facility] System Name Value Range Interpretation Description Data Sup porting Code Source(s) Document(s ) Color YELLOW YELLOW Normal (applies Color [facility] to non-numeric Health results) System Specific 1.025 Normal (applies Urine Specific [facility] gravity of to non-numeric [facility] Urine results) System Appearance of CLEAR CLEAR Normal (applies Urine [facility] Urine to non-numeric Appearance Health results) System Glucose, UA NEGATIVE Normal (applies Glucose, UA [facility] to non-numeric Health results) System Negative pH.. 6.0 {pH_units} 4.6 - 8.0 Normal (applies pH.. [facility] pH units to non-numeric Health System results) Protein NEGATIVE Normal (applies Protein [facility] [Mass/volume] in to non-numeric Health S ystem Serum or Plasma results) Bilirubin Urine NEGATIVE Normal (applies Bilirubin Urine [facility] to non-numeric [facility] System results) Urobilinogen 0.20 {eu/dL} 0.20 - Normal (applies Urobilinogen UA [facility] [Mass/volume] in 1.00 to non-numeric Health S ystem Urine eu/dL results) Ketones NEGATIVE Normal (applies Ketones UA [facility] [Mass/volume] in to non-numeric Health S ystem Urine results) Negative Leukocyte esterase NEGATIVE Normal (applies Leukocyte Grisel ase [facility] [Units/volume] in to non-numeric Concentration [facility] Urine results) Negative Nitrate+Nitrite NEGATIVE Normal (applies to Nitrite [facility] [Mass/volume] in non-numeric results) Sy stem Unspecified specimen Negative Red Blood Cells 0-1 Normal (applies to Red Blood Cells [facility] non-numeric System results) Leukocytes 0-1 Normal (applies to White Blood Cells [facility] [#/volume] in non-numeric System Unspecified results) specimen by Automated count Mucus rare Normal (applies to Mucus [facility] non-numeric System results) Epithelial cells few Normal (applies to Epithelial Anat ls [facility] [Presence] in non-numeric System Unspecified results) specimen by Wet preparation Urine Blood NEGATIVE Normal (applies to Urine Blood [facility] non-numeric System results) ID Date Data Source [id number] 11/07/2012 07:58:00 AM EDT [facility] System Name Value Range Interpretation Description Data Sup porting Code Source(s) Document(s ) Leukocytes 6.6 4.8 - Normal (applies WBC Count [facility] [#/volume] in {10\\S\\3_ 10.8 to non-numeric Health Unspecified uL} 10\\S\\3 results) System specimen by uL Automated count Hemoglobin 13.0 12.0 - Normal (applies Hemoglobin, [facility] [Mass/volume] in {gm/dL} 16.0 to non-numeric Whole Blood Health Blood gm/dL results) System Erythrocytes 3.96 3.80 - Normal (applies RBC Count [facility] [#/volume] in {10\\S\\6_ 5.20 to non-numeric Health Blood by uL} 10\\S\\6 results) System Automated count uL Hematocrit 35.4 % 36.0 - Below low normal Hematocrit, [facility] [Volume 46.0 % Whole Blood Health Fraction] of System Blood Erythrocyte mean 89.4 fl 80.0 - Normal (applies MCV [facility] corpuscular 100.0 to non-numeric Health volume [Entitic fl results) System volume] by Automated count Erythrocyte mean 32.8 pg 26.0 - Normal (applies MCH [facility] ore corpuscular 34.0 pg to non-numeric Health hemoglobin results) System [Entitic mass] by Automated count Erythrocyte 14.8 % 11.5 - Above high RDW [facility] distribution 14.5 % normal Health width [Entitic System volume] by Automated count Erythrocyte mean 36.7 33.0 - Normal (applies MCHC [facility] corpuscular {gm/dL} 37.0 to non-numeric Health hemoglobin gm/dL results) System concentration [Mass/volume] by Automated count Platelet mean 10.6 fl 7.4 - Above high MPV [facility] volume [Entitic 10.4 fl normal Health volume] in Blood System by Automated count Platelets 249 130 - Normal (applies Platelet [facility] [#/volume] in {10\\S\\3_ 400 to non-numeric Count Health Plasma by uL} 10\\S\\3 results) System Automated count uL Eosinophils 0.3 0.1 - Normal (applies Eosinophil [facility] [#/volume] in {10\\S\\3} 0.3 to non-numeric Count Blood Health Blood 10\\S\\3 results) System Monocytes 0.5 0.3 - Normal (applies Monocyte [facility] [#/volume] in {10\\S\\3_ 0.9 to non-numeric Count Health Blood by Manual uL} 10\\S\\3 results) System count uL Basophils 0.02 0.00 - Normal (applies Basophil [facility] [#/volume] in {10\\S\\3_ 0.10 to non-numeric Count Health Blood by uL} 10\\S\\3 results) System Automated count uL Neutrophils 4.0 2.0 - Normal (applies Absolute [facility] [#/volume] in {10\\S\\3_ 8.1 to non-numeric Neutrophil Health Body fluid uL} 10\\S\\3 results) Count System uL Lymphocyte 1.9 1.0 - Normal (applies Lymphocyte [facility] Absolute {10\\S\\3_ 5.5 to non-numeric Absolute Health uL} 10\\S\\3 results) System uL Neutrophils/100 60.6 % 0.0 - Normal (applies Neutrophil % [facility] alexis leukocytes in 120.0 % to non-numeric Health Blood by results) System Automated count Monocytes/100 6.8 % 6.0 - Normal (applies Monocyte % [facility] leukocytes in 9.0 % to non-numeric Health Blood results) System Eosinophils/100 4.2 % 1.0 - Above high Eosinophil % [facility] leukocytes in 3.0 % normal Health Unspecified System specimen Lymphocytes 28.1 % 21.0 - Normal (applies Lymphocyte % [facility] [#/volume] in 51.0 % to non-numeric Health Blood by results) System Automated count Basophils/100 0.3 % 0.0 - Normal (applies Basophil % [facility] leukocytes in 1.0 % to non-numeric Health Unspecified results) System specimen by Manual count ID Date Data Source [id number] 11/07/2012 07:58:00 AM EDT [facility] Name Value Range Interpretation Description Data Sup porting Code Source(s) Document(s ) Thyrotropin 4.241 0.380 - Normal (applies Thyroid [facility] [Mass/volume] 6.150 to non-numeric Stimulating Health in Serum or results) Hormone, Serum System Plasma ID Date Data Source [id number] 11/07/2012 07:58:00 AM EDT [facility] Name Value Range Interpretation Description Data Sup porting Code Source(s) Document(s ) Potassium 3.8 3.6 - Normal (applies Potassium, [facility] [Mass/volume] in mmol/L 5.0 to non-numeric Serum Health Serum or Plasma mmol/L results) System Sodium 146 137 - Above high Sodium, Serum [facility] [Moles/volume] in mmol/L 145 normal Health Serum or Plasma mmol/L System Chloride 108 98 - Above high Chloride, [facility] [Moles/volume] in mmol/L 107 normal Serum Health Serum or Plasma mmol/L System Carbon dioxide, 25.0 22.0 - Normal (applies CO2, Serum [facility] total mmol/L 30.0 to non-numeric Health [Moles/volume] in mmol/L results) System Serum or Plasma Total Protein 6.4 6.3 - Normal (applies Total Protein [facility] mg/dl 8.2 to non-numeric Health mg/dl results) System Glucose 97 65 - Normal (applies Glucose, [facility] [Mass/volume] in mg/dL 105 to non-numeric Serum Health Serum or Plasma mg/dL results) System Urea nitrogen 23 7 - 18 Above high Blood Urea [facility] [Mass/volume] in mg/dl mg/dl normal Nitrogen, Health Serum or Plasma Serum System Creatinine 0.90 0.70 - Normal (applies Creatinine, [facility] [Mass/volume] in mg/dl 1.20 to non-numeric Serum Health Serum or Plasma mg/dl results) System Alkaline 81 38 - Normal (applies Alkaline [facility] phosphatase {IU/L} 126 to non-numeric Phosphatase, Health isoenzymes IU/L results) Serum System [Enzymatic activity/volume] in Serum or Plasma by Heat stability Bilirubin.total 0.7 0.2 - Normal (applies Bilirubin, [facility] [Mass/volume] in mg/dl 1.3 to non-numeric Serum Total Health Serum or Plasma mg/dl results) System Aspartate 27 5 - 40 Normal (applies Aspartate [facility] aminotransferase {IU/L} IU/L to non-numeric Transaminase, Heal th [Enzymatic results) Serum System activity/volume] in Serum or Plasma by With P-5'-P I. Phosphorus 3.1 2.5 - Normal (applies I. Phosphorus [facility] mg/dl 4.5 to non-numeric Health mg/dl results) System Albumin 4.1 3.9 - Normal (applies Albumin, [facility] [Mass/volume] in {gm/dl} 5.0 to non-numeric Serum Health Serum or Plasma gm/dl results) System Calcium 9.9 8.4 - Normal (applies Calcium, [facility] [Mass/volume] in mg/dl 10.2 to non-numeric Total Serum Health Serum or Plasma mg/dl results) System Alanine 38 7 - 56 Normal (applies Alanine [facility] aminotransferase {IU/L} IU/L to non-numeric Aminotransfer Heal th [Enzymatic results) ase, Serum System activity/volume] in Serum or Plasma A/G Ratio 1.78 Normal (applies A/G Ratio [facility] to non-numeric Health results) System Anion gap in Serum 13.00 8.00 - Above high Anion Gap [facility] or Plasma mmol/L 12.00 normal Health mmol/L System Urate 6.2 2.5 - Normal (applies Uric Acid, [facility] [Mass/volume] in mg/dl 7.5 to non-numeric Serum Health Serum or Plasma mg/dl results) System Glomerular 63.92 Normal (applies GFR [facility] filtration to non-numeric Health rate/1.73 sq results) System M.predicted [Volume Rate/Area] in Serum or Plasma by Creatinine-based formula (CKD-EPI) eGFR will provide clinicians with a more accurate indicator of renal function then the serum creatinine. The eGFR is automa tically calculated from an empiric formula (endorsed by the National Kidney [employer] ion) which incorporates age, sex, and race.Clinicians may notice surprisingly low GFR's with serum creatinine valueswithin normal range- particularly in elderly wo men (with low muscle mass).In the hospital setting, the eGFR should add an element of safety in drug dosing, in assessing the risk of IV contrast administration, and in assessing vascular risk.The NKF staging system is as follows:Normal: eGFR >90 with no kidney markersStage 1: eGFR >90 with kidney markers*Stage 2: eGFR 60- 89Stage 3: eGFR 30-59Stage 4: eGFR 15-29Stage 5: eGFR <15 (usually requir ing dialysis)*Markers include: Proteinuria, Hematuria, abnormal imaging-studies, or other blood or urine test abnormalities ID Date Data Source [id number] 11/07/2012 07:58:00 AM EDT [facility] System Name Value Range Interpretation Description Data Sup porting Code Source(s) Document(s ) Triglyceride 179 35 - 135 Above high Triglycerides [facility] [Mass/volume] mg/dl mg/dl normal , Serum Health in Serum or System Plasma Optimal = < 100 mg/dLBoderline High = 15 0 - 199 mg/dLHigh = 200 - 499 mg/dLVery High = > 500 mg/dL Cholesterol in HDL 43.0 mg/dL 32.0 - Normal (applies HDL Choleste rol, [facility] [Mass/volume] in 75.0 mg/dL to non-numeric Serum Health System Serum or Plasma results) Cholesterol 252 mg/dl *.* mg/dl Above high Cholesterol, [facility] [Mass/volume] in normal Serum Health System Serum or Plasma <200 mg/dL = [id number] - 239 md/dL = Borderline>240 mg/dL = High Risk Cholesterol in LDL 173.2 mg/dL Normal (applies Low Density [facility] [Mass/volume] in to non-numeric Lipoprotein, Healt h System Serum or Plasma results) Calculated OPTIMAL: LESS THAN 100 mg/dLNEAR OPTIMAL : 100 - 129 mg/dLBODERLINE HIGH: 130 - 150 mg/dL Cholesterol in VLDL 35.8 Normal (applies to VLDL, Serum [facility] [Mass/volume] in non-numeric System Serum or Plasma results) CHD Risk 5.86 2.40 - Above high normal CHD Risk [facility] H ealth 5.30 System ID Date Data Source [id number] 11/07/2012 07:58:00 AM EDT [facility] Name Value Range Interpretation Description Data Sup porting Code Source(s) Document(s ) Creatine 72 30 - 135 Normal (applies Creatine [facility] kinase.MB {IU/L} IU/L to non-numeric Kinase, Serum Health Syst em [Mass/volum results) e] in Serum or Plasma ID Date Data Source [id number] 12/05/2011 09:59:00 AM EDT [facility] Name Value Range Interpretation Description Data Sup porting Code Source(s) Document(s ) 25 Hydroxy 57 ng/mL Normal (applies 25 Hydroxy D3 [facility] D3 to non-numeric Health results) System 25 Hydroxy Less than 4 Normal (applies 25 Hydroxy D2 [facility] D2 25-OHD3 to non-numeric Health indicates results) System both endogenous production and supplementati on. 25-OHD2 is an indicator of exogenous sources such as diet or supplementati on. Therapy is based on measurement of Total 25-OHD, with levels <20 ng/mL indicative of Vitamin D deficiency, while levels between 20 ng/mL and 30 ng/mL suggest insufficiency . Optimal levels are > or = 30 ng/mL. Test Performed at: [employer] [facility] [address], [place] [address] Sydnie Schmidt M.D. 25 Hydroxy 57 ng/mL 30 - 100 Normal (applies 25 Hydroxy [facility] Vitamin D ng/mL to non-numeric Vitamin D Health results) System ID Date Data Source [id number] 12/05/2011 09:59:00 AM EDT [facility] Name Value Range Interpretation Description Data Sup porting Code Source(s) Document(s ) Specific 1.025 Normal (applies Urine Specific [facility] gravity of to non-numeric [facility] Urine results) System Color YELLOW YELLOW Normal (applies Color [facility] to non-numeric Health results) System Appearance of CLEAR CLEAR Normal (applies Urine [facility] Urine to non-numeric Appearance Health results) System Bilirubin NEGATIVE Normal (applies Bilirubin [facility] Urine to non-numeric Urine Health results) System Glucose, UA NEGATIVE Normal (applies Glucose, UA [facility] to non-numeric Health results) System Negative pH.. 6.0 {pH_units} 4.6 - 8.0 Normal (applies pH.. [facility] pH units to non-numeric Health System results) Protein NEGATIVE Normal (applies Protein [facility] [Mass/volume] to non-numeric Health Syst em in Serum or results) Plasma Leukocyte SMALL Normal (applies Leukocyte [facility] esterase to non-numeric Esterase Health System [Units/volume] results) Concentration in Urine Negative Urobilinogen 0.20 {eu/dL} 0.20 - Normal (applies Urobilinogen UA [facility] [Mass/volume] in 1.00 to non-numeric Health S ystem Urine eu/dL results) Nitrate+Nitrite NEGATIVE Normal (applies Nitrite [facility] [Mass/volume] in to non-numeric Health S ystem Unspecified results) specimen Negative Ketones [Mass/volume] NEGATIVE Normal (applies to Ketones U A [facility] in Urine non-numeric results) System Negative Leukocytes 7-10 Normal (applies White Blood [facility] [#/volume] in to non-numeric Cells Health Syst em Unspecified results) specimen by Automated count Epithelial cells 0-2 Normal (applies Epithelial Cells [facility] [Presence] in to non-numeric Health Syst em Unspecified results) specimen by Wet preparation Urine Blood NEGATIVE Negative Normal (applies Urine Blood [facility] to non-numeric Health System results) Bacteria RARE Normal (applies Bacteria [facility] [Presence] in to non-numeric Health Syst em Unspecified results) specimen Red Blood Cells 0-2 Normal (applies Red Blood Cells [facility] to non-numeric Health System results) ID Date Data Source [id number] 12/05/2011 09:59:00 AM EDT [facility] Name Value Range Interpretation Description Data Sup porting Code Source(s) Document(s ) Hemoglobin 13.7 12.0 - Normal (applies Hemoglobin, [facility] [Mass/volume] in {gm/dL} 16.0 to non-numeric Whole Blood Health Blood gm/dL results) System Leukocytes 6.2 4.8 - Normal (applies WBC Count [facility] [#/volume] in {10\\S\\3_ 10.8 to non-numeric Health Unspecified uL} 10\\S\\3 results) System specimen by uL Automated count Erythrocytes 3.69 3.80 - Below low normal RBC Count [facility] [#/volume] in {10\\S\\6_ 5.20 Health Blood by uL} 10\\S\\6 System Automated count uL Hematocrit 33.5 % 36.0 - Below low normal Hematocrit, [facility] [Volume 46.0 % Whole Blood Health Fraction] of System Blood Erythrocyte mean 37.1 pg 26.0 - Above high MCH [facility] corpuscular 34.0 pg normal Health hemoglobin System [Entitic mass] by Automated count Erythrocyte mean 90.8 fl 80.0 - Normal (applies MCV [facility] corpuscular 100.0 to non-numeric Health volume [Entitic fl results) System volume] by Automated count Erythrocyte 46.2 % 11.5 - Above high RDW [facility] distribution 14.5 % normal Health width [Entitic System volume] by Automated count Platelets 237 130 - Normal (applies Platelet [facility] [#/volume] in {10\\S\\3_ 400 to non-numeric Count Health Plasma by uL} 10\\S\\3 results) System Automated count uL Erythrocyte mean 40.9 33.0 - Above high MCHC [facility] corpuscular {gm/dL} 37.0 normal Health hemoglobin gm/dL System concentration [Mass/volume] by Automated count Neutrophils 4.1 Normal (applies Absolute [facility] [#/volume] in {10\\S\\3_ to non-numeric Neutrophil Health Body fluid uL} results) Count System Platelet mean 10.0 fl 7.4 - Normal (applies MPV [facility] volume [Entitic 10.4 fl to non-numeric Health volume] in Blood results) System by Automated count Lymphocyte 1.5 Normal (applies Lymphocyte [facility] Absolute {10\\S\\3_ to non-numeric Absolute Health uL} results) System Monocytes 0.6 Normal (applies Monocyte [facility] [#/volume] in {10\\S\\3_ to non-numeric Count Health Blood by Manual uL} results) System count Neutrophils/100 65.3 % Normal (applies Neutrophil % Sean alexis leukocytes in to non-numeric Health Blood by results) System Automated count Monocytes/100 10.0 % 6.0 - Above high Monocyte % [facility] leukocytes in 9.0 % normal Health Blood System Lymphocytes 24.7 % 21.0 - Normal (applies Lymphocyte % [facility] [#/volume] in 51.0 % to non-numeric Health Blood by results) System Automated count ID Date Data Source [id number] 12/05/2011 09:59:00 AM EDT [facility] Name Value Range Interpretation Description Data Sup porting Code Source(s) Document(s ) Thyrotropin 3.254 0.380 - Normal (applies Thyroid [facility] [Mass/volume] 6.150 to non-numeric Stimulating Health in Serum or results) Hormone, Serum System Plasma ID Date Data Source [id number] 12/05/2011 09:59:00 AM EDT [facility] Name Value Range Interpretation Description Data Sup porting Code Source(s) Document(s ) Sodium 142 mmol/L 137 - Normal (applies Sodium, [facility] [Moles/volume] 145 to non-numeric Serum Health in Serum or mmol/L results) System Plasma Potassium 3.8 mmol/L 3.6 - Normal (applies Potassium, [facility] [Mass/volume] 5.0 to non-numeric Serum Health in Serum or mmol/L results) System Plasma Chloride 106 mmol/L 98 - Normal (applies Chloride, [facility] [Moles/volume] 107 to non-numeric Serum Health in Serum or mmol/L results) System Plasma Total Protein 6.4 mg/dl 6.3 - Normal (applies Total [facility] 8.2 to non-numeric Protein Health mg/dl results) System Carbon dioxide, 24.0 mmol/L 22.0 - Normal (applies CO2, Serum [facility] alexis total 30.0 to non-numeric Health [Moles/volume] mmol/L results) System in Serum or Plasma Urea nitrogen 17 mg/dl 7 - 18 Normal (applies Blood Urea [facility] [Mass/volume] mg/dl to non-numeric Nitrogen, Health in Serum or results) Serum System Plasma Glucose 95 mg/dL 65 - Normal (applies Glucose, [facility] [Mass/volume] 105 to non-numeric Serum Health in Serum or mg/dL results) System Plasma Creatinine 0.70 mg/dl 0.70 - Normal (applies Creatinine, [facility] [Mass/volume] 1.20 to non-numeric Serum Health in Serum or mg/dl results) System Plasma Alkaline 96 {IU/L} 38 - Normal (applies Alkaline [facility] phosphatase 126 to non-numeric Phosphatase, Health isoenzymes IU/L results) Serum System [Enzymatic activity/volume ] in Serum or Plasma by Heat stability Bilirubin.total 0.4 mg/dl 0.2 - Normal (applies Bilirubin, [facility] [Mass/volume] 1.3 to non-numeric Serum Total Health in Serum or mg/dl results) System Plasma Aspartate 17 {IU/L} 5 - 40 Normal (applies Aspartate [facility] aminotransferas IU/L to non-numeric Transaminase Health e [Enzymatic results) , Serum System activity/volume ] in Serum or Plasma by With P-5'-P Albumin 4.2 {gm/dl} 3.9 - Normal (applies Albumin, [facility] [Mass/volume] 5.0 to non-numeric Serum Health in Serum or gm/dl results) System Plasma Alanine 20 {IU/L} 7 - 56 Normal (applies Alanine [facility] aminotransferas IU/L to non-numeric Aminotransfe Health e [Enzymatic results) rase, Serum System activity/volume ] in Serum or Plasma Calcium 9.7 mg/dl 8.4 - Normal (applies Calcium, [facility] [Mass/volume] 10.2 to non-numeric Total Serum Health in Serum or mg/dl results) System Plasma I. Phosphorus 2.9 mg/dl 2.5 - Normal (applies I. [facility] 4.5 to non-numeric Phosphorus [facility] mg/dl results) System Urate 6.3 mg/dl 2.5 - Normal (applies Uric Acid, [facility] [Mass/volume] 7.5 to non-numeric Serum Health in Serum or mg/dl results) System Plasma Anion gap in 12.00 mmol/L 8.00 - Normal (applies Anion Gap [facility] Serum or Plasma 12.00 to non-numeric Health mmol/L results) System A/G Ratio 1.91 Normal (applies A/G Ratio [facility] to non-numeric Health results) System Glomerular Greater than Normal (applies GFR [facility] filtration 60 eGFR will to non-numeric Health rate/1.73 sq provide results) System M.predicted clinicians [Volume with a more Rate/Area] in accurate Serum or Plasma indicator of by renal function Creatinine-base then the serum d formula creatinine. (CKD-EPI) The eGFR is automatically calculated from an empiric formula (endorsed by the [employer]) which incorporates age, sex, and race.Clinician s may notice surprisingly low GFR's with serum creatinine valueswithin normal range- particularly in elderly women (with low muscle mass).In the hospital setting, the eGFR should add an element of safety in drug dosing, in assessing the risk of IV contrast administration , and in assessing vascular risk.The NKF staging system is as follows:Normal : eGFR >90 with no kidney markersStage 1: eGFR >90 with kidney markers*Stage 2: eGFR 60-89Stage 3: eGFR 30-59Stage 4: eGFR 15-29Stage 5: eGFR <15 (usually requiring dialysis)*Miller ers include: Proteinuria, Hematuria, abnormal imaging-studie s, or other blood or urine test abnormalities ID Date Data Source [id number] 12/05/2011 09:59:00 AM EDT [facility] Name Value Range Interpretation Description Data Sup porting Code Source(s) Document(s ) Triglyceride 187 35 - 135 Above high Triglycerides [facility] [Mass/volume] mg/dl mg/dl normal , Serum Health in Serum or System Plasma Optimal = < 100 mg/dLBoderline High = 15 0 - 199 mg/dLHigh = 200 - 499 mg/dLVery High = > 500 mg/dL Cholesterol in HDL 41.0 mg/dL 32.0 - Normal (applies HDL Choleste rol, [facility] [Mass/volume] in 75.0 mg/dL to non-numeric Serum Health System Serum or Plasma results) Cholesterol 230 mg/dl *.* mg/dl Above high Cholesterol, [facility] [Mass/volume] in normal Serum Health System Serum or Plasma <200 mg/dL = [id number] - 239 md/dL = Borderline>240 mg/dL = High Risk CHD Risk 5.61 2.40 - Above high CHD Risk [facility] 5.30 normal Health System Cholesterol in 37.4 Normal VLDL, Serum [facility] VLDL [Mass/volume] (applies to Health Sy stem in Serum or Plasma non-numeric results) Cholesterol in LDL 151.6 mg/dL Normal Low Density [facility] [Mass/volume] in (applies to Lipoprotein, Health S ystem Serum or Plasma non-numeric Calculated results) OPTIMAL: LESS THAN 100 mg/dLNEAR OPTIMAL : 100 - 129 mg/dLBODERLINE HIGH: 130 - 150 mg/dL ID Date Data Source [id number] 12/05/2011 09:59:00 AM EDT [facility] System Name Value Range Interpretation Description Data Sup porting Code Source(s) Document(s ) Creatine 62 30 - 135 Normal (applies Creatine [facility] kinase.MB {IU/L} IU/L to non-numeric Kinase, Serum Health Syst em [Mass/volum results) e] in Serum or Plasma Procedure Social History Code Duration Value Status Description Data Source(s ) Smoking Unknown if ever completed Unknown if ever Whit [facility] smoked smoked [facility] Vital Signs ID Date Data Source UNK Name Value Range Interpretation Code Description Data Source(s) Diastolic blood 78 mm[Hg] 78 mm[Hg] [facility] Systolic blood 126 mm[Hg] 126 mm[facility]Hg[facility] Respiratory rate 16 /min 16 /min [facility] Heart [facility] 84 /min 84 /min [facility] Body temperature 36.18380 36.55558 Anat [facility] Body temperature 97.7 [degF] 97.7 [degF] [facility] Body mass index 30.0 kg/m2 30.0 kg/m2 [facility] ins (BMI) [Ratio] Hospital Body weight 180.34 180.34 [lb_av] [facility] ins [lb_av] Hospital Patient Treatment Plan of Care Planned Activity Planned Date Details Description Data Source (s) apixaban 5 MG Oral Table[facility]09[facility]2017 [facility]24 PM EDT System Amiodarone hydrochloride 200 01/09/2017 [facility] MG Oral Tablet 01:26:08 PM EDT System Cholecalciferol 2000 UNT Oral 01/09/2017 [facility] Tablet 10:58:17 AM EDT System Calcium Carbonate 1500 MG / 01/09/2017 [facility] Cholecalciferol 200 UNT Oral 10:57:06 AM EDT System Tablet Hydrochlorothiazide 12.5 MG 01/09/2017 [facility] Oral Capsule 10:56:39 AM EDT System Losartan Potassium 50 MG Oral 01/09/2017 [facility] Tablet 10:54:21 AM EDT System Naproxen 500 MG Oral Tablet 06/18/2015 [facility] 02:12:18 PM EST System Ibuprofen 600 MG Oral Tablet 08/24/2013 [facility] [Ibu] 07:27:41 PM EDT System Ondansetron 4 MG Oral Strip 08/24/2013 [facility] 07:26:44 PM EDT System Synthroid [facility] th System Hydrochlorothiazide 12.5 MG / [facility] irbesartan 150 MG Oral Tablet System [Avalide]
[2020-03-02] MEDS ORDERED: LIDOCAINE 5% TOPICAL PATCH TP ONE (17:04)
[2020-03-02 17:09] VITALS: TEMP 97.9; BMI 30.4
[2020-03-02] MEDS ORDERED: LIDOCAINE 5% TOPICAL PATCH ONE (17:10)
[2020-03-02 19:06] VITALS: BP 144/76; PULSE 70
[2020-03-02] MEDS ORDERED: DIPHTH,PERTUSS(ACELL),TET 0.5 ML DISP.SYRIN IM ONE ×2 (19:15→19:16)
--- NOTE | 2020-03-02 19:18 | PDOC ---
*Physical Exam - Vital Signs Last Vital Signs Temp Pulse Resp BP Pulse Ox 97.9 F 70 16 144/76 98 03/02/20 18:55 03/02/20 18:55 03/02/20 16:39 03/02/20 18:55 03/02/20 18:55 ED Treatment Course - Medications Given in the ED: ED Medications Discontinued Medications Generic Name Dose Route Start Last Admin Trade Name Michael PRN Reason Stop Dose Admin Lidocaine 1 patch 03/02/20 17:04 03/02/20 17:20 Lidoderm Patch - TP 03/02/20 17:05 1 patch ONCE ONE Administration ED Progress Note - Progress Note Progress Note: 03/02/20 19:16 CABG [place] [address] Ortega. Patient is a 65-year-old female on a blood thinner who fell and hit her head. Patient has a head CT and cervical spine CT pending. Head CT and cervical spine was performed and read as no acute pathology. Patient discharged with head injury instructions. Patient's tetanus updated. Patient will follow-up with her primary care doctor. Discharge - Discharge Information Problems reviewed: Yes Clinical Impression/Diagnosis: Contusion of face Qualifiers: Encounter type: initial encounter Qualified Code(s): S00.83XA - Contusion of other part of head, initial encounter Cervical muscle strain Qualifiers: Encounter type: initial encounter Qualified Code(s): S16.1XXA - Strain of muscle, fascia and tendon at neck level, initial encounter Condition: Stable - Admission No - Follow up/Referral - Patient Discharge Instructions Additional Instructions: For the pain take Tylenol 1000 mg as often this 3-4 times a day if needed. Someone to check on you once tonight during the night. You should be arousable to their normal level of arousability for that time of the night. If you have been vomiting, had a seizure, or you are unable to be aroused or there is a change in your mental status call 911 go back to the nearest emergency department. Followup with your primary care doctor Return to the emergency department immediately with ANY new, persistent or worsening symptoms. Continue any medications as previously prescribed by your physician. You should follow up with your primary doctor as soon as possible regarding today's emergency department visit. . Please make sure your doctor reviews the results of your emergency evaluation. Thank you for coming to the Emergency Department today for your care. It was a pleasure to see you today. Please note that your evaluation is INCOMPLETE until you follow-up with your doctor. - Post Discharge Activity
[2020-03-02] MEDS ORDERED: LIDOCAINE PATCH REMOVAL MC SCH (22:00)
== END 2020-03-02 19:31 | disposition home or self-care (01) ==
LOC: FER 16:37
PROC: 3E0234Z Introduction of Serum, Toxoid and Vaccine into Muscle, Percutaneous Approach (ICD-10-PCS; principal; 2020-03-02)
DX: S00.83XA Contusion of other part of head, initial encounter (principal); S16.1XXA Strain of muscle, fascia and tendon at neck level, initial encounter
CPT/HCPCS: 70450-TC; 72125-TC; 90715; 99284-25